=== PATIENT | male | born 1955 | race American Indian/Alaskan Native ===

== ENCOUNTER 2019-08-15 18:45 | Inpatient (IN) | payer MEDICARE ==
[2019-08-15] MEDS ORDERED: FUROSEMIDE 40 MG/4 ML INJ ONE (18:52)
[2019-08-15] MEDS ORDERED: FUROSEMIDE 40 MG/4 ML INJ IV ONE ×2 (18:53→20:15)
--- NOTE | 2019-08-15 18:59 | Emergency Department Report ---
ED Shortness of Breath HPI - General Stated Complaint: MO Time Seen by Provider: 08/15/19 18:50 Source: patient, EMS Mode of arrival: Stretcher Limitations: No Limitations - History of Present Illness Initial Comments: Patient is a 64-year-old that presents to the emergency room with complaints of shortness of breath. Patient states symptoms started 4 days ago. Patient state s fraction of 3 hours of his symptoms got worse. Patient states she cannot get breath. Patient states he is having difficulties in breathing. Patient denies fever and chills. Patient denies cough. Patient denies chest pain. Patient denies headache. Patient states symptoms better with rest and worse with exertion. MD Complaint: shortness of breath -: Sudden, days(s) (4 days) Severity: severe Consistency: constant Improves With: oxygen, upright position, other (bipap) Worsens With: lying flat, exertion Known History Of: congestive heart failure - Related Data Home Medications Medication Instructions Recorded Confirmed Last Taken Amlodipine Besylate [Norvasc] 10 mg PO QDAY 08/15/19 08/15/19 Unknown Aspirin EC [Halfprin EC] 81 mg PO QDAY 08/15/19 08/15/19 Unknown Atorvastatin Calcium [Lipitor] 80 mg PO QHS 08/15/19 08/15/19 Unknown Clopidogrel [Plavix] 75 mg PO QDAY 08/15/19 08/15/19 Unknown Furosemide [Lasix TAB] 80 mg PO QDAY 08/15/19 08/15/19 Unknown Insulin Detemir [Levemir Flextouch] 15 unit SQ QHS 08/15/19 08/15/19 Unknown Isosorbide Dinitrate [Isordil] 40 mg PO TID 08/15/19 08/15/19 Unknown Potassium Chloride [K-Dur] 20 meq PO QDAY 08/15/19 08/15/19 Unknown carvediloL [Coreg] 25 mg PO BID 08/15/19 08/15/19 Unknown cloNIDine-TTS PATCH [Catapres-Tts 1 patch TD Q7D 08/15/19 08/15/19 Unknown 0.1MG Patch] hydrALAZINE [Apresoline TAB] 100 mg PO TID 08/15/19 08/15/19 Unknown Allergies Allergy/AdvReac Type Severity Reaction Status Date / Time No Known Allergies Allergy Verified 08/15/19 18:58 ED Review of Systems ROS: Stated complaint: MO Other details as noted in HPI Constitutional: denies: chills, fever Eyes: denies: eye pain, eye discharge, vision change ENT: denies: ear pain, throat pain Respiratory: shortness of breath, SOB with exertion, SOB at rest. denies: cough, wheezing Cardiovascular: dyspnea on exertion. denies: chest pain, palpitations Endocrine: no symptoms reported Gastrointestinal: denies: abdominal pain, nausea, diarrhea Genitourinary: denies: urgency, dysuria Musculoskeletal: denies: back pain, joint swelling, arthralgia Skin: denies: rash, lesions Neurological: denies: headache, weakness, paresthesias Psychiatric: denies: anxiety, depression Hematological/Lymphatic: denies: easy bleeding, easy bruising ED Past Medical Hx - Past Medical History Previous Medical History?: Yes Hx Hypertension: Yes Hx Congestive Heart Failure: Yes - Surgical History Past Surgical History?: No - Family History Family history: no significant - Social History Smoking Status: Former Smoker Substance Use Type: None - Medications Home Medications: Home Medications Medication Instructions Recorded Confirmed Last Taken Type Amlodipine Besylate [Norvasc] 10 mg PO QDAY 08/15/19 08/15/19 Unknown History Aspirin EC [Halfprin EC] 81 mg PO QDAY 08/15/19 08/15/19 Unknown History Atorvastatin Calcium [Lipitor] 80 mg PO QHS 08/15/19 08/15/19 Unknown History Clopidogrel [Plavix] 75 mg PO QDAY 08/15/19 08/15/19 Unknown History Furosemide [Lasix TAB] 80 mg PO QDAY 08/15/19 08/15/19 Unknown History Insulin Detemir [Levemir Flextouch] 15 unit SQ QHS 08/15/19 08/15/19 Unknown History Isosorbide Dinitrate [Isordil] 40 mg PO TID 08/15/19 08/15/19 Unknown History Potassium Chloride [K-Dur] 20 meq PO QDAY 08/15/19 08/15/19 Unknown History carvediloL [Coreg] 25 mg PO BID 08/15/19 08/15/19 Unknown History cloNIDine-TTS PATCH [Catapres-Tts 1 patch TD Q7D 08/15/19 08/15/19 Unknown History 0.1MG Patch] hydrALAZINE [Apresoline TAB] 100 mg PO TID 08/15/19 08/15/19 Unknown History ED Physical Exam - General Limitations: No Limitations General appearance: alert, in distress - Head Head exam: Present: atraumatic, normocephalic - Eye Eye exam: Present: normal appearance - ENT ENT exam: Present: mucous membranes moist - Neck Neck exam: Present: normal inspection - Respiratory Respiratory exam: Present: respiratory distress, rales, accessory muscle use - Cardiovascular Cardiovascular Exam: Present: regular rate, normal rhythm, tachycardia. Absent: systolic murmur, diastolic murmur, rubs, gallop - GI/Abdominal GI/Abdominal exam: Present: soft, normal bowel sounds - Rectal Rectal exam: Present: deferred - Extremities Exam Extremities exam: Present: normal inspection - Back Exam Back exam: Present: normal inspection - Neurological Exam Neurological exam: Present: alert, oriented X3 - Psychiatric Psychiatric exam: Present: normal affect, normal mood - Skin Skin exam: Present: warm, dry, intact, normal color. Absent: rash ED Course Vital Signs 08/15/19 08/15/19 08/15/19 18:58 19:00 19:01 Pulse Rate 98 H 100 H 98 H Respiratory 16 35 H 38 H Rate Blood Pressure 193/110 196/123 196/123 O2 Sat by Pulse 100 95 96 Oximetry 08/15/19 08/15/19 08/15/19 19:15 19:30 19:45 Pulse Rate 97 H 94 H 96 H Respiratory 31 H 28 H 28 H Rate Blood Pressure 188/107 188/107 207/105 O2 Sat by Pulse 96 98 97 Oximetry 08/15/19 08/15/19 08/15/19 20:00 20:15 20:30 Pulse Rate 92 H 94 H 96 H Respiratory 29 H 30 H 25 H Rate Blood Pressure 198/108 184/104 192/108 O2 Sat by Pulse 98 94 94 Oximetry 08/15/19 08/15/19 08/15/19 20:45 21:00 21:15 Pulse Rate 93 H 89 88 Respiratory 25 H 26 H 22 Rate Blood Pressure 181/103 181/104 179/107 O2 Sat by Pulse 94 97 96 Oximetry 08/15/19 08/15/19 08/15/19 21:30 22:00 22:15 Pulse Rate 88 84 92 H Respiratory 19 20 16 Rate Blood Pressure 178/103 175/102 185/104 O2 Sat by Pulse 96 99 96 Oximetry 08/15/19 08/15/19 08/15/19 22:23 22:30 22:45 Pulse Rate 97 H 85 84 Respiratory 25 H 21 22 Rate Blood Pressure 185/104 183/100 183/106 O2 Sat by Pulse 97 96 97 Oximetry 08/15/19 08/15/19 08/15/19 23:00 23:30 23:45 Pulse Rate 88 84 83 Respiratory 21 21 22 Rate Blood Pressure 179/108 184/103 179/106 O2 Sat by Pulse 98 97 98 Oximetry 08/15/19 08/16/19 08/16/19 23:59 00:00 00:15 Pulse Rate 82 82 83 Respiratory 21 18 21 Rate Blood Pressure 179/106 179/102 181/104 O2 Sat by Pulse 99 98 99 Oximetry 08/16/19 08/16/19 08/16/19 00:31 00:45 01:00 Pulse Rate 111 H 90 84 Respiratory 21 22 20 Rate Blood Pressure 149/107 188/102 182/101 O2 Sat by Pulse 97 99 98 Oximetry 08/16/19 08/16/19 01:15 01:30 Pulse Rate 84 86 Respiratory 19 22 Rate Blood Pressure 189/102 183/94 O2 Sat by Pulse 98 98 Oximetry - Reevaluation(s) Reevaluation #1: Initial evaluation done. Report received from EMS. EMS states that they gave him nitroglycerin, morphine and placed him on BiPAP. Patient was placed on BiPAP here. Patient's this oxygen saturation is 83% 08/15/19 18:45 Reevaluation #2: Patient states he is feeling better. Patient blood pressure 191 temperature patient was placed on a nitro drip. Patient worked breathing has decreased. Patient's oxygen is better. 08/15/19 19:27 Reevaluation #3: Patient symptoms are improving. Patient worked breathing has decreased. Patient's oxygen saturation is 99%. 08/15/19 20:01 Reevaluation #4: I discussed all results with patient. Discussed plan of care with patient. Patient will be admitted to the hospitalist service. Patient agrees with plan of care and admission. 08/15/19 21:52 - Consultations Consultation #1: Hospitalist consulted for admission. Hospitalist admit patient. 08/15/19 21:53 ED Medical Decision Making - Lab Data Result diagrams: 08/15/19 20:39 08/15/19 20:39 - EKG Data -: EKG Interpreted by Me EKG shows normal: sinus rhythm, axis, intervals, ST-T waves Rate: normal, tachycardia - EKG Data Interpretation: LVH, other (LBBB) - Radiology Data Radiology results: report reviewed CHEST 1 VIEW INDICATION / CLINICAL INFORMATION: Dyspnea. COMPARISON: None available. FINDINGS: SUPPORT DEVICES: ICD on the left HEART / MEDIASTINUM: Mild enlargement of the cardiac silhouette with left ventricular configuration. LUNGS / PLEURA: Diffuse interstitial opacity consistent with pulmonary edema No pneumothorax. ADDITIONAL FINDINGS: No significant additional findings. IMPRESSION: 1. Cardiomegaly and interstitial pulmonary edema. - Medical Decision Making pt is a 64-year-old male that presents emergency room with complaints of breath. Patient's symptoms were worsening over last few hours prior to arrival. Patient was on BiPAP by EMS. Patient given multiple medications by EMS. Pa tient still symptomatic on initial examination. Patient was placed on BiPAP for increased work of breathing and hypoxia. Patient's oxygen improved. Patient given Lasix in the ER and placed on a nitro drip. Patient was placed on nitro drip for his CHF and for his blood pressure. Patient's blood pressure improved. Patient's symptoms improved. Patient responded well to treatment. Patient admitted to the ICU and to the hospitalist team. - Differential Diagnosis shortness of breath, CHF, pulmonary edema. Hypoxia. Critical Care Time: Yes Critical care time in (mins) excluding proc time.: 45 Critical care attestation.: If time is entered above; I have spent that time in minutes in the direct care of this critically ill patient, excluding procedure time. Critical Care Time: 45 minutes ED Disposition Clinical Impression: SOB (shortness of breath), Malignant hypertension, PEREZ (dyspnea on exertion), Hypoxia, Elevated troponin, Respiratory distress CHF exacerbation Qualifiers: Heart failure type: unspecified Qualified Code(s): I50.9 - Heart failure, unspecified Renal failure Qualifiers: Renal failure chronicity: acute Acute renal failure type: unspecified Qualified Code(s): N17.9 - Acute kidney failure, unspecified Disposition: OP ADMIT IP TO THIS HOSP Is pt being admited?: Yes Does the pt Need Aspirin: No Condition: Critical Time of Disposition: 21:49
--- NOTE | 2019-08-15 19:52 | XRay Report ---
CHEST 1 VIEW INDICATION / CLINICAL INFORMATION: Dyspnea. COMPARISON: None available. FINDINGS: SUPPORT DEVICES: ICD on the left HEART / MEDIASTINUM: Mild enlargement of the cardiac silhouette with left ventricular configuration. LUNGS / PLEURA: Diffuse interstitial opacity consistent with pulmonary edema No pneumothorax. ADDITIONAL FINDINGS: No significant additional findings. IMPRESSION: 1. Cardiomegaly and interstitial pulmonary edema. Signer Name: Adan Fraser MD Signed: 08/15/2019 7:48 PM Workstation Name: [id number]
[2019-08-15] MEDS: NITROGLYCERIN DRIP 50 MG/250 ML BOTTLE IV SCH (19:59)
[2019-08-15 21:10] LABS: Hematocrit 30.7 % (35.5-45.6); Hemoglobin 10.5 gm/dl (11.8-15.2); Mean Corpuscular HGB Conc 34 % (32-34); Mean Corpuscular Volume 92 fl (84-94); Platelet Count 225 K/mm3 (140-440); Red Blood Count 3.35 M/mm3 (3.65-5.03); Red Cell Distribution Width 13.6 % (13.2-15.2)
[2019-08-15 21:23] LABS: Creatine Kinase MB 11.9 ng/mL (0.0-4.0)
[2019-08-15 21:28] LABS: Albumin 4.1 g/dL (3.9-5)
[2019-08-15 21:52] LABS: Chol/HDL Ratio 3.06 %
[2019-08-15 21:54] LABS: Basophils % (Manual) 0 % (0.0-1.8); Eosinophils % (Manual) 0 % (0.0-4.3); Total Cells Counted 100
[2019-08-15 21:55] LABS: Anisocytosis 1+; Large Platelets 1+; Platelet Estimate Consistent w Auto; Poikilocytosis 1+
[2019-08-15] MEDS ORDERED: DEXTROSE 50% IN WATER (25GM) 50 ML SYRINGE IV PRN (23:23)
[2019-08-15] MEDS ORDERED: ONDANSETRON 4 MG/2 ML INJ IV PRN (23:28)
[2019-08-15] MEDS ORDERED: ACETAMINOPHEN 325 MG TAB PO PRN (23:28)
[2019-08-16] MEDS: cloNIDine TTS 0.1 MG/24 HR PATCH TD SCH ×2 (00:09→21:50)
[2019-08-16] MEDS ORDERED: cloNIDine 0.2 MG TAB ONE (01:55)
[2019-08-16] MEDS ORDERED: HEPARIN 10,000 UNITS/10 ML VIAL IV ONE ×4 (01:58→23:01)
[2019-08-16] MEDS ORDERED: cloNIDine 0.2 MG TAB PO ONE (02:50)
[2019-08-16] MEDS ORDERED: HEPARIN 5,000 UNIT/1 ML VIAL ONE ×2 (02:59→14:10)
[2019-08-16] MEDS: ALBUTEROL 2.5 MG/3 ML NEBU IH SCH ×4 (03:16→20:59)
[2019-08-16 05:19] LABS: Hemoglobin 10.2 gm/dl (11.8-15.2)
[2019-08-16 05:35] LABS: Creatine Kinase MB 20.5 ng/mL (0.0-4.0)
[2019-08-16 05:44] LABS: INR 1.18 (0.87-1.13)
[2019-08-16 05:53] LABS: Partial Thromboplastin Time 35.9 Sec. (24.2-36.6)
[2019-08-16] MEDS ORDERED: HEPARIN/ 0.45% NACL DRIP 25,000 UNIT/500 ML BAG ONE (05:55)
[2019-08-16] MEDS: HEPARIN/ 0.45% NACL DRIP 25,000 UNIT/500 ML BAG IV SCH ×3 (05:59→23:18)
[2019-08-16] MEDS ORDERED: HEPARIN 5,000 UNIT/1 ML VIAL SUB-Q SCH (06:00)
--- NOTE | 2019-08-16 06:33 | History and Physical Report ---
CHIEF COMPLAINT: Shortness of breath. HISTORY OF PRESENTING ILLNESS: The patient is a 64-year-old male who presented with history of shortness of breath going on for about 4 days and said that the symptoms got worse few hours prior to presentation. There is no history of fever or chills and no history of cough. Also, the patient denied history of chest pain, headache or dizziness and said that the symptoms of shortness of breath get worse with exertion and get better with rest. There is also no history of nausea and vomiting. PAST MEDICAL HISTORY: Pertinent for hypertension, congestive heart failure. PAST SURGICAL HISTORY: There is no significant past surgical history. FAMILY HISTORY: Reviewed and noncontributory. SOCIAL HISTORY: The patient is a former cigarette smoker who does not smoke currently, does not drink alcohol and does not use illicit drugs. MEDICATIONS: The patient is on amlodipine, Norvasc 10 mg by mouth daily, aspirin 81 mg by mouth daily, Lipitor 80 mg by mouth at bedtime, clopidogrel 75 mg by mouth daily, Lasix 80 mg by mouth daily, Levemir insulin 15 units subcutaneously at bedtime, isosorbide dinitrate 40 mg by mouth 3 times daily, K-Dur, potassium chloride 20 mEq by mouth daily, Coreg 25 mg by mouth twice daily, Catapres 0.1 mg patch 1 patch transdermally every 72 hours and hydralazine 100 mg by mouth 3 times daily. ALLERGIES: There are no known drug allergies. REVIEW OF SYSTEMS: CONSTITUTIONAL: There is no fever, no chills, no diaphoresis. HEENT: There is no headache or sore throat. CARDIOVASCULAR SYSTEM: There is no chest pain or orthopnea. RESPIRATORY SYSTEM: Shortness of breath is present. There is no cough. GASTROINTESTINAL SYSTEM: There is no nausea, no vomiting, no abdominal pain, diarrhea or constipation. NEUROLOGICAL SYSTEM: There is no numbness, no dizziness, no altered mental status. MUSCULOSKELETAL SYSTEM: There is no joint pain or swelling. DERMATOLOGICAL SYSTEM: There is no skin rash or itching. GENITOURINARY SYSTEM: There is no dysuria, hematuria, or flank pain. Rest of system review is normal. PHYSICAL EXAMINATION: GENERAL: At the time of exam, the patient was found to be alert, oriented x3 and in mild to moderate distress due to shortness of breath. VITAL SIGNS: At the initial time of presentation show normal temperature with pulse of 98, respirations 16, blood pressure 193/110, O2 sat of 100% on oxygen. HEENT: Showed pupils to be equal, round, reactive to light and accommodating. Extraocular muscles are intact. NECK: Supple with no JVD or carotid bruit. CARDIOVASCULAR SYSTEM: Showed normal first and second heart sounds with no gallops or murmurs. RESPIRATORY SYSTEM: Showed good air entry on both sides of the lungs with mild basilar rales. GASTROINTESTINAL SYSTEM: Showed abdomen to be full, soft, nontender with no organomegaly or rigidity. NEUROLOGIC: Showed no focal deficit. MUSCULOSKELETAL: Showed swelling in both ankles. DERMATOLOGICAL SKIN: Showed no skin rash. GENITOURINARY SYSTEM: Showed no costovertebral angle tenderness. PERTINENT LABORATORY AND IMAGING STUDIES: The patient had chest x-ray done and chest x-ray shows cardiomegaly and interstitial pulmonary edema. Lab results, the patient has CBC done with normal white count, low hemoglobin of 10.5, low hematocrit of 30.7 with CBC differential showing elevated segmented neutrophil count of 93%. The patient's chemistry showing high BUN of 40 with high creatinine of 3.7 with high blood glucose level of 257. The patient's cardiac enzymes show high total CPK of 3076 with high CK-MB of 11.9 and normal CK percentage index with high troponin level of 0.129. The patient's brain natriuretic peptide level is high with a value of 11,748. DIAGNOSES: 1. Congestive heart failure exacerbation. 2. Elevated troponin level. 3. Hypertensive crisis. PLAN OF CARE: 1. The patient will be admitted to ICU. 2. The patient will continue the nitroglycerin drip started in the Emergency Room, which will be titrated to keep blood pressure down to about 140/90 or less. 3. The patient will have Cardiology consult with Dr. Banegas because of CHF exacerbation and elevated troponin level. 4. The patient will have cardiac enzymes, troponin, total CK, and CK-MB checked every 6 hours x 2 more levels. 5. The patient will have 2D echo done in the morning to check the left ventricular function. 6. The patient will be on Accu-Chek before meals and at bedtime followed by low-dose sliding scale using regular insulin coverage. 7. The patient will be on heparin bolus and drip per NSTEMI protocol. 8. The patient will be on p.r.n. medications like Tylenol 650 mg by mouth every 4 hours as needed for fever and headache and will be on albuterol nebulizer 2.5 mg by inhalation every 6 hours. 9. The patient will be on his home medications as shown in the medication reconciliation section. 10. The patient will be on IV Lasix 40 mg daily. 11. The patient will be on IV Zofran 4 mg IV every 8 hours as needed for nausea and vomiting. 12. The patient will continue the BiPAP started in the Emergency Room until oxygenation improves and the order reviewed and changed by the attending physician. JOB# [id number] OCN/NTS
[2019-08-16] MEDS: INSULIN REGULAR, HUMAN 100 UNITS/1 ML SUB-Q SCH ×4 (07:23→21:49)
[2019-08-16] MEDS ORDERED: hydrALAZINE 100 MG TAB ONE ×2 (07:33→15:14)
[2019-08-16] MEDS: hydrALAZINE 100 MG TAB PO SCH ×3 (07:34→19:54)
[2019-08-16] MEDS ORDERED: NITROGLYCERIN DRIP 50 MG/250 ML BOTTLE ONE ×2 (08:05→14:42)
--- NOTE | 2019-08-16 09:58 | Progress Note ---
Assessment and Plan Assessment and plan: Patient is a 64 yo man with a history of hypertension and CHF (first visit in our EMR) who presented to [facility] ED with severe SOB requring Bipap, pulse ox only 83%. * pCXR Impression: Cardiomegaly and interstitial pulmonary edema -Acute on chronic decompensated heart failure, suspected systolic decompenstation: treat with iv lasix, consult Cardiology, ECHO pending -Acute hypoxic respiratory failure: wean off bipap, consult CCM/Pulm -ARF, vasomotor nephropathy: treat the CHF, consult Nephrology -Type 2 CO vs NSTEMI; on heparin drip -Malignant Hypertension: on NTG drip -Uncontrolled type 2 DM: add ssi, monitior bg closely -SIRs, noninfectious with organ dysfunction, poa: continue to the CHF and ARF -Anemia: check FOBT, monitor closely on heparin IV drip CCT 31 minutes History Interval history: Patient was seen and examined. Follow-up on current diagnosis of CHF. No overnight events reported to me. Patient denies any nausea/vomiting or severe headaches. Imaging, nursing note, chart, labs and old chart reviewed. Discussed with patient. Hospitalist Physical - Physical exam Narrative exam: Gen: ill appearing, increase accessory muscles, Awake, Alert, Orientated HEENT: NCAT, EOMI, PERRL, OP Clear Neck: supple, no adenopathy, no thyromegaly, JVD CVS/Heart: RRR, normal S1S2, pulses present bilaterally Chest/Lungs: bilateral crackles and diminished bs, Symmetrical chest expansion, good air entry bilaterally GI/Abdomen: soft, NTND, good bowel sounds, no guarding or rebound /Bladder: no suprapubic tenderness, no CVA or paraspinal tenderness Extermity/Skin: +pitting ble edema, no obvious rash MSK: FROM x 4 Neuro: CN 2-12 grossly intact, no new focal deficits Psych: calm - Constitutional Vitals: Temp Pulse Resp BP Pulse Ox 93 H 16 181/103 98 08/16/19 08:57 08/16/19 08:57 08/16/19 08:57 08/16/19 08:57 Results - Labs CBC & Chem 7: 08/16/19 04:49 08/15/19 20:39 Labs: Laboratory Last Values WBC 8.1 K/mm3 (4.5-11.0) 08/15/19 20:39 RBC 3.35 M/mm3 (3.65-5.03) L 08/15/19 20:39 Hgb 10.2 gm/dl (11.8-15.2) L 08/16/19 04:49 Hct 30.0 % (35.5-45.6) L 08/16/19 04:49 MCV 92 fl (84-94) 08/15/19 20:39 MCH 31 pg (28-32) 08/15/19 20:39 MCHC 34 % (32-34) 08/15/19 20:39 RDW 13.6 % (13.2-15.2) 08/15/19 20:39 Plt Count 233 K/mm3 (140-440) 08/16/19 04:49 Add Manual Diff Complete 08/15/19 20:39 Total Counted 100 08/15/19 20:39 Seg Neutrophils % [employer] 08/15/19 20:39 Seg Neuts % (Manual) 93.0 % (40.0-70.0) H 08/15/19 20:39 Band Neutrophils % 0 % 08/15/19 20:39 Lymphocytes % (Manual) 4.0 % (13.4-35.0) L 08/15/19 20:39 Reactive Lymphs % (Man) 0 % 08/15/19 20:39 Monocytes % (Manual) 3.0 % (0.0-7.3) 08/15/19 20:39 Eosinophils % (Manual) 0 % (0.0-4.3) 08/15/19 20:39 Basophils % (Manual) 0 % (0.0-1.8) 08/15/19 20:39 Metamyelocytes % 0 % 08/15/19 20:39 Myelocytes % 0 % 08/15/19 20:39 Promyelocytes % 0 % 08/15/19 20:39 Blast Cells % 0 % 08/15/19 20:39 Nucleated RBC % Not Reportable 08/15/19 20:39 Seg Neutrophils # Man 7.5 K/mm3 (1.8-7.7) 08/15/19 20:39 Band Neutrophils # 0.0 K/mm3 08/15/19 20:39 Lymphocytes # (Manual) 0.3 K/mm3 (1.2-5.4) L 08/15/19 20:39 Abs React Lymphs (Man) 0.0 K/mm3 08/15/19 20:39 Monocytes # (Manual) 0.2 K/mm3 (0.0-0.8) 08/15/19 20:39 Eosinophils # (Manual) 0.0 K/mm3 (0.0-0.4) 08/15/19 20:39 Basophils # (Manual) 0.0 K/mm3 (0.0-0.1) 08/15/19 20:39 Metamyelocytes # 0.0 K/mm3 08/15/19 20:39 Myelocytes # 0.0 K/mm3 08/15/19 20:39 Promyelocytes # 0.0 K/mm3 08/15/19 20:39 Blast Cells # 0.0 K/mm3 08/15/19 20:39 WBC Morphology Not Reportable 08/15/19 20:39 Hypersegmented Neuts Not Reportable 08/15/19 20:39 Hyposegmented Neuts Not Reportable 08/15/19 20:39 Hypogranular Neuts Not Reportable 08/15/19 20:39 Smudge Cells Not Reportable 08/15/19 20:39 Toxic Granulation Not Reportable 08/15/19 20:39 Toxic Vacuolation Not Reportable 08/15/19 20:39 Dohle Bodies Not Reportable 08/15/19 20:39 Pelger-Huet Anomaly Not Reportable 08/15/19 20:39 Alysia Rods Not Reportable 08/15/19 20:39 Platelet Estimate Consistent w auto 08/15/19 20:39 Clumped Platelets Not Reportable 08/15/19 20:39 Plt Clumps, EDTA Not Reportable 08/15/19 20:39 Large Platelets 1+ 08/15/19 20:39 Giant Platelets Not Reportable 08/15/19 20:39 Platelet Satelliting Not Reportable 08/15/19 20:39 Plt Morphology Comment Not Reportable 08/15/19 20:39 RBC Morphology Not Reportable 08/15/19 20:39 Dimorphic RBCs Not Reportable 08/15/19 20:39 Polychromasia Not Reportable 08/15/19 20:39 Hypochromasia Not Reportable 08/15/19 20:39 Poikilocytosis 1+ 08/15/19 20:39 Anisocytosis 1+ 08/15/19 20:39 Microcytosis Not Reportable 08/15/19 20:39 Macrocytosis Not Reportable 08/15/19 20:39 Spherocytes Not Reportable 08/15/19 20:39 Pappenheimer Bodies Not Reportable 08/15/19 20:39 Sickle Cells Not Reportable 08/15/19 20:39 Target Cells Not Reportable 08/15/19 20:39 Tear Drop Cells Not Reportable 08/15/19 20:39 Ovalocytes Not Reportable 08/15/19 20:39 Helmet Cells Not Reportable 08/15/19 20:39 Miranda-Fitzgerald Bodies Not Reportable 08/15/19 20:39 [place] Rings Not Reportable 08/15/19 20:39 Oxford Cells Not Reportable 08/15/19 20:39 Bite Cells Not Reportable 08/15/19 20:39 Crenated Cell Not Reportable 08/15/19 20:39 Elliptocytes Not Reportable 08/15/19 20:39 Acanthocytes (Spur) Not Reportable 08/15/19 20:39 Rouleaux Not Reportable 08/15/19 20:39 Hemoglobin C Crystals Not Reportable 08/15/19 20:39 Schistocytes Not Reportable 08/15/19 20:39 Malaria parasites Not Reportable 08/15/19 20:39 Fred Bodies Not Reportable 08/15/19 20:39 Hem Pathologist Commnt No 08/15/19 20:39 PT 15.2 Sec. (12.2-14.9) H 08/16/19 04:49 INR 1.18 (0.87-1.13) H 08/16/19 04:49 APTT 35.9 Sec. (24.2-36.6) 08/16/19 04:49 Sodium 141 mmol/L (137-145) 08/15/19 20:39 Potassium 3.9 mmol/L (3.6-5.0) 08/15/19 20:39 Chloride 104.7 mmol/L (98-107) 08/15/19 20:39 Carbon Dioxide 20 mmol/L (22-30) L 08/15/19 20:39 Anion Gap 20 mmol/L 08/15/19 20:39 BUN 40 mg/dL (9-20) H 08/15/19 20:39 Creatinine 3.7 mg/dL (0.8-1.5) H 08/15/19 20:39 Estimated GFR 20 ml/min 08/15/19 20:39 BUN/Creatinine Ratio 11 % 08/15/19 20:39 Glucose 257 mg/dL (75-100) H 08/15/19 20:39 POC Glucose 73 (70-105) 08/16/19 07:30 Lactic Acid 1.10 mmol/L (0.7-2.0) 08/15/19 20:39 Calcium 9.0 mg/dL (8.4-10.2) 08/15/19 20:39 Total Bilirubin 0.40 mg/dL (0.1-1.2) 08/15/19 20:39 AST 33 units/L (5-40) 08/15/19 20:39 ALT 18 units/L (7-56) 08/15/19 20:39 Alkaline Phosphatase 91 units/L (35-129) 08/15/19 20:39 Total Creatine Kinase 2928 units/L (55-170) H 08/16/19 04:49 CK-MB (CK-2) 20.5 ng/mL (0.0-4.0) H 08/16/19 04:49 CK-MB (CK-2) Rel Index 0.7 (0-4) 08/16/19 04:49 Troponin T 0.382 ng/mL (0.00-0.029) H* D 08/16/19 04:49 NT-Pro-B Natriuret Pep 53411 pg/mL (0-900) H 08/15/19 20:39 Total Protein 7.2 g/dL (6.3-8.2) 08/15/19 20:39 Albumin 4.1 g/dL (3.9-5) 08/15/19 20:39 Albumin/Globulin Ratio 1.3 % 08/15/19 20:39 Triglycerides 94 mg/dL (2-149) 08/15/19 20:39 Cholesterol 138 mg/dL (50-199) 08/15/19 20:39 LDL Cholesterol Direct 86 mg/dL (50-130) 08/15/19 20:39 HDL Cholesterol 45 mg/dL (40-59) 08/15/19 20:39 Cholesterol/HDL Ratio 3.06 % 08/15/19 20:39 Active Medications - Current Medications Current Medications: Generic Name Dose Route Start Last Admin Trade Name Freq PRN Reason Stop Dose Admin Acetaminophen 650 mg 08/15/19 23:28 Tylenol PO Q4H PRN Headache Albuterol 2.5 mg 08/16/19 02:00 08/16/19 08:24 Proventil IH 2.5 mg Q6HRT [facility] Administration Amlodipine Besylate 10 mg 08/16/19 10:00 Amlodipine PO QDAY [facility] Aspirin 81 mg 08/16/19 10:00 Halfprin Ec PO QDAY [facility] Atorvastatin Calcium 80 mg 08/16/19 22:00 Lipitor PO QHS [facility] Carvedilol 25 mg 08/16/19 10:00 Coreg PO BID [facility] Clonidine HCl 0.1 mg 08/15/19 23:45 08/16/19 00:09 Catapres-Tts Patch TD Not Given Fr@2200 [facility] Dextrose 50 ml 08/15/19 23:23 D50w (25gm) Syringe IV Q30MIN PRN Hypoglycemia Protocol Furosemide 40 mg 08/16/19 10:00 Lasix IV QDAY [facility] Guaifenesin 200 mg 08/15/19 23:29 Robitussin PO Q4H PRN Cough Hydralazine HCl 100 mg 08/16/19 08:00 08/16/19 07:34 Apresoline PO 100 mg TID [facility] Administration Nitroglycerin/Dextrose 50 mg in 250 mls @ 3 mls/hr 08/15/19 19:00 08/16/19 08:56 Tridil Drip 50mg/250ml IV 140 mcg/min TITR [facility] 42 mls/hr Titration Protocol 10 MCG/MIN Heparin Sodium/Sodium Chloride 25,000 unit in 500 mls @ 20 mls/hr 08/16/19 02:00 08/16/19 05:59 Heparin/ 0.45% Nacl-25,000 Unit/500 Ml IV 1,000 units/hr TITRATE [facility] 20 mls/hr Administration Protocol 1,000 UNITS/HR Insulin Glargine 15 units 08/16/19 22:00 Lantus SUB-Q QHS [facility] Insulin Human Regular 0 units 08/16/19 07:30 08/16/19 07:23 Humulin R SUB-Q Not Given [facility] Protocol Insulin Human Regular 0 units 08/16/19 22:00 Humulin R SUB-Q QHS [facility] Protocol Ondansetron HCl 4 mg 08/15/19 23:28 Zofran IV Q8H PRN Nausea And Vomiting Potassium Chloride 20 meq 08/16/19 10:00 K-Dur PO QDAY [facility]
[2019-08-16] MEDS ORDERED: CLOPIDOGREL 75 MG TAB PO SCH (10:00)
[2019-08-16] MEDS: NITROGLYCERIN DRIP 50 MG/250 ML BOTTLE IV SCH ×2 (10:00→17:49)
[2019-08-16] MEDS ORDERED: FUROSEMIDE 40 MG/4 ML INJ ONE (10:10)
[2019-08-16] MEDS ORDERED: ASPIRIN 81 MG TAB CHEW ONE (10:10)
[2019-08-16] MEDS ORDERED: amLODIPine 10 MG TAB ONE (10:10)
[2019-08-16] MEDS ORDERED: POTASSIUM CHLORIDE ER 20 MEQ TAB PO ONE (10:11)
[2019-08-16] MEDS ORDERED: carvediloL 25 MG TAB ONE (10:11)
[2019-08-16] MEDS: amLODIPine 10 MG TAB PO SCH (10:14)
[2019-08-16] MEDS: FUROSEMIDE 40 MG/4 ML INJ IV SCH (10:15)
[2019-08-16] MEDS: carvediloL 25 MG TAB PO SCH ×2 (10:15→21:51)
[2019-08-16] MEDS: ASPIRIN EC 81 MG TAB PO SCH (10:15)
[2019-08-16] MEDS: POTASSIUM CHLORIDE ER 10 MEQ TAB PO SCH (10:15)
--- NOTE | 2019-08-16 10:36 | Consultation ---
History of Present Illness Consult date: 08/16/19 Requesting physician: LAURA ASHER Consult reason: congestive heart failure, elevated troponin History of present illness: Mr. Posada is a 64 y/o male with a medical history significant for chronic HFrEF, cardiomyopathy, AICD in situ, CAD s/p PCI to the LAD in 2016, hypertension, type 2 diabetes and CKD who presented to [facility] with worsening SOB over the past several days. He follows at [facility], and his medical history/home medications are obtained from [facility]'s EMR. On ad mission, his oxygen saturation was in the 80s, and he ultimately required BiPAP. A CXR was significant for cardiomegaly and interstitial pulmonary edema. Troponins elevated to 0.129, 0.231 and 0.382; EKG NAF and patient denies chest pain. An echocardiogram done at [place] in 2016 found an EF of 30 percent, mild LVH, severely dilated LV, mild MR and a small pericardial effusion. Past History Past Medical History: CAD, diabetes, heart failure, hypertension, renal failure, other (AICD in situ) Medications and Allergies Allergies Allergy/AdvReac Type Severity Reaction Status Date / Time No Known Allergies Allergy Verified 08/15/19 18:58 Home Medications Medication Instructions Recorded Confirmed Last Taken Type Amlodipine Besylate [Norvasc] 10 mg PO QDAY 08/15/19 08/15/19 Unknown History Aspirin EC [Halfprin EC] 81 mg PO QDAY 08/15/19 08/15/19 Unknown History Atorvastatin Calcium [Lipitor] 80 mg PO QHS 08/15/19 08/15/19 Unknown History Clopidogrel [Plavix] 75 mg PO QDAY 08/15/19 08/15/19 Unknown History Furosemide [Lasix TAB] 80 mg PO QDAY 08/15/19 08/15/19 Unknown History Insulin Detemir [Levemir Flextouch] 15 unit SQ QHS 08/15/19 08/15/19 Unknown History Isosorbide Dinitrate [Isordil] 40 mg PO TID 08/15/19 08/15/19 Unknown History Potassium Chloride [K-Dur] 20 meq PO QDAY 08/15/19 08/15/19 Unknown History carvediloL [Coreg] 25 mg PO BID 08/15/19 08/15/19 Unknown History cloNIDine-TTS PATCH [Catapres-Tts 1 patch TD Q7D 08/15/19 08/15/19 Unknown History 0.1MG Patch] hydrALAZINE [Apresoline TAB] 100 mg PO TID 08/15/19 08/15/19 Unknown History Active Meds: Active Medications Acetaminophen (Tylenol) 650 mg PO Q4H PRN PRN Reason: Headache Albuterol (Proventil) 2.5 mg IH Q6HRT [facility] Last Admin: 08/16/19 08:24 Dose: 2.5 mg Documented by: Amlodipine Besylate (Amlodipine) 10 mg PO QDAY [facility] Last Admin: 08/16/19 10:14 Dose: 10 mg Documented by: Aspirin (Halfprin Ec) 81 mg PO QDAY [facility] Last Admin: 08/16/19 10:15 Dose: 81 mg Documented by: Atorvastatin Calcium (Lipitor) 80 mg PO QHS [facility] Carvedilol (Coreg) 25 mg PO BID [facility] Last Admin: 08/16/19 10:15 Dose: 25 mg Documented by: Clonidine HCl (Catapres-Tts Patch) 0.1 mg TD Fr@2200 [facility] Last Admin: 08/16/19 00:09 Dose: Not Given Documented by: Dextrose (D50w (25gm) Syringe) 50 ml IV Q30MIN PRN; Protocol PRN Reason: Hypoglycemia Furosemide (Lasix) 40 mg IV QDAY [facility] Last Admin: 08/16/19 10:15 Dose: 40 mg Documented by: Guaifenesin (Robitussin) 200 mg PO Q4H PRN PRN Reason: Cough Hydralazine HCl (Apresoline) 100 mg PO TID [facility] Last Admin: 08/16/19 07:34 Dose: 100 mg Documented by: Nitroglycerin/Dextrose (Tridil Drip 50mg/250ml) 50 mg in 250 mls @ 3 mls/hr IV TITR [facility]; Protocol Last Admin: 08/16/19 10:00 Dose: 150 mcg/min, 45 mls/hr Documented by: Heparin Sodium/Sodium Chloride (Heparin/ 0.45% Nacl-25,000 Unit/500 Ml) 25,000 unit in 500 mls @ 20 mls/hr IV TITRATE [facility]; Protocol Last Admin: 08/16/19 05:59 Dose: 1,000 units/hr, 20 mls/hr Documented by: Insulin Glargine (Lantus) 15 units SUB-Q QHS [facility] Insulin Human Regular (Humulin R) 0 units SUB-Q [facility]; Protocol Last Admin: 08/16/19 07:23 Dose: Not Given Documented by: Insulin Human Regular (Humulin R) 0 units SUB-Q QHS [facility]; Protocol Ondansetron HCl (Zofran) 4 mg IV Q8H PRN PRN Reason: Nausea And Vomiting Potassium Chloride (K-Dur) 20 meq PO QDAY [facility] Last Admin: 08/16/19 10:15 Dose: 20 meq Documented by: Review of Systems All systems: negative Cardiovascular: shortness of breath Physical Examination Vital Signs Pulse Resp BP Pulse Ox 98 H 16 193/110 100 08/15/19 18:58 08/15/19 18:58 08/15/19 18:58 08/15/19 18:58 General appearance: mild distress HEENT: Positive: PERRL Neck: Positive: neck supple Cardiac: Positive: Reg Rate and Rhythm Lungs: Positive: Decreased Breath Sounds Neuro: Positive: Grossly Intact Abdomen: Positive: Unremarkable Male genitourinary: Positive: deferred Skin: Positive: Clear Musculoskeletal: Normal Range of Motion Extremities: Present: normal Results 08/16/19 04:49 08/15/19 20:39 Cardiac Enzymes 08/15/19 08/15/19 08/16/19 Range/Units 20:39 20:39 00:30 AST 33 (5-40) units/L CK-MB (CK-2) 11.9 H 18.0 H (0.0-4.0) ng/mL 08/16/19 Range/Units 04:49 AST (5-40) units/L CK-MB (CK-2) 20.5 H (0.0-4.0) ng/mL Coagulation 08/16/19 Range/Units 04:49 PT 15.2 H (12.2-14.9) Sec. INR 1.18 H (0.87-1.13) APTT 35.9 (24.2-36.6) Sec. Lipids 08/15/19 Range/Units 20:39 Triglycerides 94 (2-149) mg/dL Cholesterol 138 (50-199) mg/dL HDL Cholesterol 45 (40-59) mg/dL Cholesterol/HDL Ratio 3.06 % CBC 08/15/19 08/16/19 Range/Units 20:39 04:49 WBC 8.1 (4.5-11.0) K/mm3 RBC 3.35 L (3.65-5.03) M/mm3 Hgb 10.5 L 10.2 L (11.8-15.2) gm/dl Hct 30.7 L 30.0 L (35.5-45.6) % Plt Count 225 233 (140-440) K/mm3 Comprehensive Metabolic Panel 08/15/19 Range/Units 20:39 Sodium 141 (137-145) mmol/L Potassium 3.9 (3.6-5.0) mmol/L Chloride 104.7 (98-107) mmol/L Carbon Dioxide 20 L (22-30) mmol/L BUN 40 H (9-20) mg/dL Creatinine 3.7 H (0.8-1.5) mg/dL Glucose 257 H (75-100) mg/dL Calcium 9.0 (8.4-10.2) mg/dL AST 33 (5-40) units/L ALT 18 (7-56) units/L Alkaline Phosphatase 91 (35-129) units/L Total Protein 7.2 (6.3-8.2) g/dL Albumin 4.1 (3.9-5) g/dL - Imaging and Cardiology Echo: report reviewed (2017: EF 30%, mild LVH, severely dilated LV, mild MR and a small pericardial effusion) Assessment and Plan Mr. Posada is a 64 y/o male who presented to [facility] with acute on chronic HFrEF. Troponin elevation likely NSTEMI type 2, secondary to demand ischemia/CKD. Will obtain echocardiogram. Continue IV diuresis and heparin drip for now. Continue home antihypertensives and GDMT for HFrEF/cardiomyopathy when able to resume PO intake. No ACEi/ARB d/t renal insufficiency. Further recommendations pending hospital course. - Patient Problems (1) NSTEMI (non-ST elevated myocardial infarction) Current Visit: Yes Status: Acute (2) Acute on chronic HFrEF (heart failure with reduced ejection fraction) Current Visit: Yes Status: Acute (3) Respiratory distress Current Visit: Yes Status: Acute (4) AICD (automatic cardioverter/defibrillator) present Current Visit: Yes Status: Chronic (5) CAD (coronary artery disease) Current Visit: Yes Status: Chronic (6) Stented coronary artery Current Visit: Yes Status: Chronic (7) CKD (chronic kidney disease) Current Visit: Yes Status: Chronic (8) Hypertension Current Visit: Yes Status: Chronic (9) Diabetes mellitus Current Visit: Yes Status: Chronic
[2019-08-16] MEDS ORDERED: HEPARIN 10,000 UNITS/10 ML VIAL ONE (14:15)
[2019-08-16] MEDS ORDERED: INSULIN REGULAR, HUMAN 100 UNITS/1 ML ONE ×2 (15:27→17:56)
[2019-08-16] MEDS: niCARdipine 50 MG in SODIUM CHLORIDE 0.9% 250ML 230 ML IV SCH (19:49)
[2019-08-16] MEDS: guaiFENesin 100 MG/5 ML ORAL LIQD PO PRN (19:54)
[2019-08-16] MEDS ORDERED: INSULIN DETEMIR 15 UNIT SQ SCH (22:00)
[2019-08-16] MEDS ORDERED: NON-FORMULARY EACH (Atorvastatin Calcium [Lipitor] 80 MG) PO SCH (22:00)
[2019-08-16] MEDS: INSULIN GLARGINE 100 UNITS/ML SUB-Q SCH (23:00)
[2019-08-17] MEDS: ALBUTEROL 2.5 MG/3 ML NEBU IH SCH ×4 (01:00→21:00)
[2019-08-17] MEDS: niCARdipine 50 MG in SODIUM CHLORIDE 0.9% 250ML 230 ML IV SCH ×2 (03:24→09:32)
[2019-08-17 06:21] LABS: Hematocrit 28.2 % (35.5-45.6); Hemoglobin 9.5 gm/dl (11.8-15.2); Mean Corpuscular HGB Conc 34 % (32-34); Mean Corpuscular Volume 91 fl (84-94); Platelet Count 205 K/mm3 (140-440); Red Blood Count 3.09 M/mm3 (3.65-5.03)
[2019-08-17 06:43] LABS: Calcium 9.1 mg/dL (8.4-10.2)
[2019-08-17] MEDS: guaiFENesin 100 MG/5 ML ORAL LIQD PO PRN (07:39)
[2019-08-17] MEDS: hydrALAZINE 100 MG TAB PO SCH ×3 (07:39→20:30)
--- NOTE | 2019-08-17 07:49 | Progress Note ---
Assessment and Plan Assessment and plan: Patient is a 64 yo man with a history of hypertension and CHF (first visit in our EMR) who presented to [facility] ED with severe SOB requring Bipap, pulse ox only 83%. * pCXR Impression: Cardiomegaly and interstitial pulmonary edema -Acute on chronic decompensated heart failure, suspected systolic decompensation: treat with iv lasix, consult Cardiology, ECHO pending -Acute hypoxic respiratory failure: wean off bipap, on O2, consulted CCM/Pulm -ARF, vasomotor nephropathy: treat the CHF, consulted Nephrology -NSTEMI; on heparin drip and NTG drip -Malignant Hypertension: on NTG drip, wasn't switched to Cardene due to NSTEMI/CHF treatment, defer to Cardiology and CCM. -Uncontrolled type 2 DM: add ssi, monitior bg closely -SIRs, noninfectious with organ dysfunction, poa: continue to the CHF and ARF -Anemia: check FOBT pending, monitor closely on heparin IV drip switch iv ntg to iv cardene drip, try to wean down doing better, less leg edema and lungs sound much better, off bipap on nasal canula O2 CCT 32min History Interval history: Patient was seen and examined. Follow-up on current diagnosis of CHF. No overnight events reported to me. Patient denies any nausea/vomiting or severe headaches. Imaging, nursing note, chart, labs and old chart reviewed. Discussed with patient. Hospitalist Physical - Physical exam Narrative exam: Gen: ill appearing, less use of accessory muscles, Awake, Alert, Orientated x 3 HEENT: NCAT, EOMI, PERRL, OP Clear Neck: supple, no adenopathy, no thyromegaly, JVD CVS/Heart: RRR, normal S1S2, pulses present bilaterally Chest/Lungs: bilateral crackles and diminished bs, Symmetrical chest expansion, good air entry bilaterally GI/Abdomen: soft, NTND, good bowel sounds, no guarding or rebound /Bladder: no suprapubic tenderness, no CVA or paraspinal tenderness Extermity/Skin: +pitting ble edema, no obvious rash MSK: FROM x 4 Neuro: CN 2-12 grossly intact, no new focal deficits Psych: calm - Constitutional Vitals: Temp Pulse Resp BP Pulse Ox 98.8 F 95 H 21 161/82 95 08/17/19 03:33 08/17/19 06:40 08/17/19 06:40 08/17/19 06:40 08/17/19 06:40 General appearance: Absent: mild distress Results - Labs CBC & Chem 7: 08/17/19 05:45 08/17/19 05:45 Labs: Laboratory Last Values WBC 7.4 K/mm3 (4.5-11.0) 08/17/19 05:45 RBC 3.09 M/mm3 (3.65-5.03) L 08/17/19 05:45 Hgb 9.5 gm/dl (11.8-15.2) L 08/17/19 05:45 Hct 28.2 % (35.5-45.6) L 08/17/19 05:45 MCV 91 fl (84-94) 08/17/19 05:45 MCH 31 pg (28-32) 08/17/19 05:45 MCHC 34 % (32-34) 08/17/19 05:45 RDW 14.0 % (13.2-15.2) 08/17/19 05:45 Plt Count 205 K/mm3 (140-440) 08/17/19 05:45 Add Manual Diff Complete 08/15/19 20:39 Total Counted 100 08/15/19 20:39 Seg Neutrophils % Stitcher Set Up Operator Automatic 08/15/19 20:39 Seg Neuts % (Manual) 93.0 % (40.0-70.0) H 08/15/19 20:39 Band Neutrophils % 0 % 08/15/19 20:39 Lymphocytes % (Manual) 4.0 % (13.4-35.0) L 08/15/19 20:39 Reactive Lymphs % (Man) 0 % 08/15/19 20:39 Monocytes % (Manual) 3.0 % (0.0-7.3) 08/15/19 20:39 Eosinophils % (Manual) 0 % (0.0-4.3) 08/15/19 20:39 Basophils % (Manual) 0 % (0.0-1.8) 08/15/19 20:39 Metamyelocytes % 0 % 08/15/19 20:39 Myelocytes % 0 % 08/15/19 20:39 Promyelocytes % 0 % 08/15/19 20:39 Blast Cells % 0 % 08/15/19 20:39 Nucleated RBC % Not Reportable 08/15/19 20:39 Seg Neutrophils # Man 7.5 K/mm3 (1.8-7.7) 08/15/19 20:39 Band Neutrophils # 0.0 K/mm3 08/15/19 20:39 Lymphocytes # (Manual) 0.3 K/mm3 (1.2-5.4) L 08/15/19 20:39 Abs React Lymphs (Man) 0.0 K/mm3 08/15/19 20:39 Monocytes # (Manual) 0.2 K/mm3 (0.0-0.8) 08/15/19 20:39 Eosinophils # (Manual) 0.0 K/mm3 (0.0-0.4) 08/15/19 20:39 Basophils # (Manual) 0.0 K/mm3 (0.0-0.1) 08/15/19 20:39 Metamyelocytes # 0.0 K/mm3 08/15/19 20:39 Myelocytes # 0.0 K/mm3 08/15/19 20:39 Promyelocytes # 0.0 K/mm3 08/15/19 20:39 Blast Cells # 0.0 K/mm3 08/15/19 20:39 WBC Morphology Not Reportable 08/15/19 20:39 Hypersegmented Neuts Not Reportable 08/15/19 20:39 Hyposegmented Neuts Not Reportable 08/15/19 20:39 Hypogranular Neuts Not Reportable 08/15/19 20:39 Smudge Cells Not Reportable 08/15/19 20:39 Toxic Granulation Not Reportable 08/15/19 20:39 Toxic Vacuolation Not Reportable 08/15/19 20:39 Dohle Bodies Not Reportable 08/15/19 20:39 Pelger-Huet Anomaly Not Reportable 08/15/19 20:39 Alysia Rods Not Reportable 08/15/19 20:39 Platelet Estimate Consistent w auto 08/15/19 20:39 Clumped Platelets Not Reportable 08/15/19 20:39 Plt Clumps, EDTA Not Reportable 08/15/19 20:39 Large Platelets 1+ 08/15/19 20:39 Giant Platelets Not Reportable 08/15/19 20:39 Platelet Satelliting Not Reportable 08/15/19 20:39 Plt Morphology Comment Not Reportable 08/15/19 20:39 RBC Morphology Not Reportable 08/15/19 20:39 Dimorphic RBCs Not Reportable 08/15/19 20:39 Polychromasia Not Reportable 08/15/19 20:39 Hypochromasia Not Reportable 08/15/19 20:39 Poikilocytosis 1+ 08/15/19 20:39 Anisocytosis 1+ 08/15/19 20:39 Microcytosis Not Reportable 08/15/19 20:39 Macrocytosis Not Reportable 08/15/19 20:39 Spherocytes Not Reportable 08/15/19 20:39 Pappenheimer Bodies Not Reportable 08/15/19 20:39 Sickle Cells Not Reportable 08/15/19 20:39 Target Cells Not Reportable 08/15/19 20:39 Tear Drop Cells Not Reportable 08/15/19 20:39 Ovalocytes Not Reportable 08/15/19 20:39 Helmet Cells Not Reportable 08/15/19 20:39 Miranda-[place] Bodies Not Reportable 08/15/19 20:39 [place] Rings Not Reportable 08/15/19 20:39 Hague Cells Not Reportable 08/15/19 20:39 Bite Cells Not Reportable 08/15/19 20:39 Crenated Cell Not Reportable 08/15/19 20:39 Elliptocytes Not Reportable 08/15/19 20:39 Acanthocytes (Spur) Not Reportable 08/15/19 20:39 Rouleaux Not Reportable 08/15/19 20:39 Hemoglobin C Crystals Not Reportable 08/15/19 20:39 Schistocytes Not Reportable 08/15/19 20:39 Malaria parasites Not Reportable 08/15/19 20:39 Fred Bodies Not Reportable 08/15/19 20:39 Hem Pathologist Commnt No 08/15/19 20:39 PT 15.2 Sec. (12.2-14.9) H 08/16/19 04:49 INR 1.18 (0.87-1.13) H 08/16/19 04:49 APTT 35.9 Sec. (24.2-36.6) 08/16/19 04:49 Heparin Anti-Xa Level 0.39 U.I./ml (0.3-0.7) 08/17/19 06:01 Sodium 141 mmol/L (137-145) 08/17/19 05:45 Potassium 3.9 mmol/L (3.6-5.0) 08/17/19 05:45 Chloride 104.3 mmol/L (98-107) 08/17/19 05:45 Carbon Dioxide 19 mmol/L (22-30) L 08/17/19 05:45 Anion Gap 22 mmol/L 08/17/19 05:45 BUN 42 mg/dL (9-20) H 08/17/19 05:45 Creatinine 4.0 mg/dL (0.8-1.5) H 08/17/19 05:45 Estimated GFR 18 ml/min 08/17/19 05:45 BUN/Creatinine Ratio 11 % 08/17/19 05:45 Glucose 151 mg/dL (75-100) H 08/17/19 05:45 POC Glucose 189 (70-105) H 08/16/19 21:37 Lactic Acid 1.10 mmol/L (0.7-2.0) 08/15/19 20:39 Calcium 9.1 mg/dL (8.4-10.2) 08/17/19 05:45 Total Bilirubin 0.40 mg/dL (0.1-1.2) 08/15/19 20:39 AST 33 units/L (5-40) 08/15/19 20:39 ALT 18 units/L (7-56) 08/15/19 20:39 Alkaline Phosphatase 91 units/L (35-129) 08/15/19 20:39 Total Creatine Kinase 2928 units/L (55-170) H 08/16/19 04:49 CK-MB (CK-2) 20.5 ng/mL (0.0-4.0) H 08/16/19 04:49 CK-MB (CK-2) Rel Index 0.7 (0-4) 08/16/19 04:49 Troponin T 0.451 ng/mL (0.00-0.029) H* 08/16/19 21:40 NT-Pro-B Natriuret Pep 70225 pg/mL (0-900) H 08/15/19 20:39 Total Protein 7.2 g/dL (6.3-8.2) 08/15/19 20:39 Albumin 4.1 g/dL (3.9-5) 08/15/19 20:39 Albumin/Globulin Ratio 1.3 % 08/15/19 20:39 Triglycerides 94 mg/dL (2-149) 08/15/19 20:39 Cholesterol 138 mg/dL (50-199) 08/15/19 20:39 LDL Cholesterol Direct 86 mg/dL (50-130) 08/15/19 20:39 HDL Cholesterol 45 mg/dL (40-59) 08/15/19 20:39 Cholesterol/HDL Ratio 3.06 % 08/15/19 20:39 Active Medications - Current Medications Current Medications: Generic Name Dose Route Start Last Admin Trade Name Freq PRN Reason Stop Dose Admin Acetaminophen 650 mg 08/15/19 23:28 Tylenol PO Q4H PRN Headache Albuterol 2.5 mg 08/16/19 02:00 08/17/19 01:00 Proventil IH 2.5 mg Q6HRT JOSHUA Administration Amlodipine Besylate 10 mg 08/16/19 10:00 08/16/19 10:14 Amlodipine PO 10 mg QDAY JOSHUA Administration Aspirin 81 mg 08/16/19 10:00 08/16/19 10:15 Halfprin Ec PO 81 mg QDAY JOSHUA Administration Atorvastatin Calcium 80 mg 08/16/19 22:00 08/16/19 21:52 Lipitor PO 80 mg QHS JOSHUA Administration Carvedilol 25 mg 08/16/19 10:00 08/16/19 21:51 Coreg PO 25 mg BID JOSHUA Administration Clonidine HCl 0.1 mg 08/15/19 23:45 08/16/19 21:50 Catapres-Tts Patch TD 0.1 mg Fr@2200 JOSHUA Administration Dextrose 50 ml 08/15/19 23:23 D50w (25gm) Syringe IV Q30MIN PRN Hypoglycemia Protocol Furosemide 40 mg 08/16/19 10:00 08/16/19 10:15 Lasix IV 40 mg QDAY JOSHUA Administration Guaifenesin 200 mg 08/15/19 23:29 08/17/19 07:39 Robitussin PO 200 mg Q4H PRN Administration Cough Hydralazine HCl 100 mg 08/16/19 08:00 08/17/19 07:39 Apresoline PO 100 mg TID JOSHUA Administration Heparin Sodium/Sodium Chloride 25,000 unit in 500 mls @ 20 mls/hr 08/16/19 02:00 08/17/19 07:27 Heparin/ 0.45% Nacl-25,000 Unit/500 Ml IV 1,500 units/hr TITRATE JOSHUA 30 mls/hr Titration Protocol 1,000 UNITS/HR Nicardipine HCl 50 mg/ Sodium 250 mls @ 25 mls/hr 08/16/19 20:00 08/17/19 07:10 Chloride IV 7.5 mg/hr TITR JOSHUA 37.5 mls/hr Titration Protocol 5 MG/HR Insulin Glargine 15 units 08/16/19 22:00 08/16/19 23:00 Lantus SUB-Q 15 units QHS JOSUHA Administration Insulin Human Regular 0 units 08/16/19 07:30 08/16/19 17:55 Humulin R SUB-Q 2 units AC JOSHUA Administration Protocol Insulin Human Regular 0 units 08/16/19 22:00 08/16/19 21:49 Humulin R SUB-Q 1 units QHS JOSHUA Administration Protocol Ondansetron HCl 4 mg 08/15/19 23:28 Zofran IV Q8H PRN Nausea And Vomiting Potassium Chloride 20 meq 08/16/19 10:00 08/16/19 10:15 K-Dur PO 20 meq QDAY JOSHUA Administration
[2019-08-17] MEDS: INSULIN REGULAR, HUMAN 100 UNITS/1 ML SUB-Q SCH ×3 (07:50→16:48)
[2019-08-17] MEDS: POTASSIUM CHLORIDE ER 10 MEQ TAB PO SCH (10:32)
[2019-08-17] MEDS: ASPIRIN EC 81 MG TAB PO SCH (10:32)
[2019-08-17] MEDS: carvediloL 25 MG TAB PO SCH ×2 (10:32→21:42)
[2019-08-17] MEDS: amLODIPine 10 MG TAB PO SCH (10:32)
[2019-08-17] MEDS: FUROSEMIDE 40 MG/4 ML INJ IV SCH ×2 (10:33→19:21)
--- NOTE | 2019-08-17 11:27 | Consultation ---
History of Present Illness - Reason for Consult Consult date: 08/17/19 Hypertensive Emergency Requesting physician: LAURA ASHER - History of Present Illness 64 y/o male with systolic CHF, Hypertension and CKD admitted with hypertensive emergency and acute respiratory failure requiring bipap therapy. Was started on nitro drip in the ED, but no improvement in BP despite adding home oral meds so changed to cardene drip. Currently in ICU on cardene at 10. Per documentation breathing is better. Currently on 3 liters NC in no apparent distress. Remainder is negative. Past History Past Medical History: CAD, diabetes, heart failure, hypertension, renal failure, other (AICD in situ) Medications and Allergies Allergies Allergy/AdvReac Type Severity Reaction Status Date / Time No Known Allergies Allergy Verified 08/15/19 18:58 Home Medications Medication Instructions Recorded Confirmed Last Taken Type Amlodipine Besylate [Norvasc] 10 mg PO QDAY 08/15/19 08/15/19 Unknown History Aspirin EC [Halfprin EC] 81 mg PO QDAY 08/15/19 08/15/19 Unknown History Atorvastatin Calcium [Lipitor] 80 mg PO QHS 08/15/19 08/15/19 Unknown History Clopidogrel [Plavix] 75 mg PO QDAY 08/15/19 08/15/19 Unknown History Furosemide [Lasix TAB] 80 mg PO QDAY 08/15/19 08/15/19 Unknown History Insulin Detemir [Levemir Flextouch] 15 unit SQ QHS 08/15/19 08/15/19 Unknown History Isosorbide Dinitrate [Isordil] 40 mg PO TID 08/15/19 08/15/19 Unknown History Potassium Chloride [K-Dur] 20 meq PO QDAY 08/15/19 08/15/19 Unknown History carvediloL [Coreg] 25 mg PO BID 08/15/19 08/15/19 Unknown History cloNIDine-TTS PATCH [Catapres-Tts 1 patch TD Q7D 08/15/19 08/15/19 Unknown History 0.1MG Patch] hydrALAZINE [Apresoline TAB] 100 mg PO TID 08/15/19 08/15/19 Unknown History Active Meds: Active Medications Acetaminophen (Tylenol) 650 mg PO Q4H PRN PRN Reason: Headache Albuterol (Proventil) 2.5 mg IH Q6HRT JOSHUA Last Admin: 08/17/19 08:16 Dose: 2.5 mg Documented by: Amlodipine Besylate (Amlodipine) 10 mg PO QDAY [facility] Last Admin: 08/17/19 10:32 Dose: 10 mg Documented by: Aspirin (Halfprin Ec) 81 mg PO QDAY [facility] Last Admin: 08/17/19 10:32 Dose: 81 mg Documented by: Atorvastatin Calcium (Lipitor) 80 mg PO QHS [facility] Last Admin: 08/16/19 21:52 Dose: 80 mg Documented by: Carvedilol (Coreg) 25 mg PO BID [facility] Last Admin: 08/17/19 10:32 Dose: 25 mg Documented by: Clonidine HCl (Catapres-Tts Patch) 0.1 mg TD Fr@2200 [facility] Last Admin: 08/16/19 21:50 Dose: 0.1 mg Documented by: Dextrose (D50w (25gm) Syringe) 50 ml IV Q30MIN PRN; Protocol PRN Reason: Hypoglycemia Furosemide (Lasix) 40 mg IV QDAY [facility] Last Admin: 08/17/19 10:33 Dose: 40 mg Documented by: Guaifenesin (Robitussin) 200 mg PO Q4H PRN PRN Reason: Cough Last Admin: 08/17/19 07:39 Dose: 200 mg Documented by: Hydralazine HCl (Apresoline) 100 mg PO TID [facility] Last Admin: 08/17/19 07:39 Dose: 100 mg Documented by: Heparin Sodium/Sodium Chloride (Heparin/ 0.45% Nacl-25,000 Unit/500 Ml) 25,000 unit in 500 mls @ 20 mls/hr IV TITRATE [facility]; Protocol Last Titration: 08/17/19 07:27 Dose: 1,500 units/hr, 30 mls/hr Documented by: Nicardipine HCl 50 mg/ Sodium (Chloride) 250 mls @ 25 mls/hr IV TITR [facility]; Protocol Last Admin: 08/17/19 09:32 Dose: 10 mg/hr, 50 mls/hr Documented by: Insulin Glargine (Lantus) 15 units SUB-Q QHS [facility] Last Admin: 08/16/19 23:00 Dose: 15 units Documented by: Insulin Human Regular (Humulin R) [address] units SUB-Q [facility]; Protocol Last Admin: 08/17/19 07:50 Dose: Not Given Documented by: Insulin Human Regular (Humulin R) 0 units SUB-Q QHS [facility]; Protocol Last Admin: 08/16/19 21:49 Dose: 1 units Documented by: Ondansetron HCl (Zofran) 4 mg IV Q8H PRN PRN Reason: Nausea And Vomiting Potassium Chloride (K-Dur) 20 meq PO QDAY [facility] Last Admin: 08/17/19 10:32 Dose: 20 meq Documented by: Review of Systems All systems: negative Exam - Constitutional Vitals: Temp Pulse Resp BP Pulse Ox 98.3 F 101 H 20 162/83 96 08/17/19 08:00 08/17/19 10:32 08/17/19 08:16 08/17/19 10:32 08/17/19 08:26 Results - Labs CBC & Chem 7: 08/17/19 05:45 08/17/19 05:45 Labs: Abnormal lab results 08/16/19 08/16/19 08/16/19 Range/Units 12:51 12:51 15:30 RBC (3.65-5.03) M/mm3 Hgb (11.8-15.2) gm/dl Hct (35.5-45.6) % Heparin Anti-Xa Level < 0.10 L (0.3-0.7) U.I./ml Carbon Dioxide (22-30) mmol/L BUN (9-20) mg/dL Creatinine (0.8-1.5) mg/dL Glucose (75-100) mg/dL POC Glucose 242 H (70-105) Troponin T 0.488 H* D (0.00-0.029) ng/mL 08/16/19 08/16/19 08/16/19 Range/Units 18:02 21:37 21:40 RBC (3.65-5.03) M/mm3 Hgb (11.8-15.2) gm/dl Hct (35.5-45.6) % Heparin Anti-Xa Level (0.3-0.7) U.I./ml Carbon Dioxide (22-30) mmol/L BUN (9-20) mg/dL Creatinine (0.8-1.5) mg/dL Glucose (75-100) mg/dL POC Glucose 237 H 189 H (70-105) Troponin T 0.451 H* (0.00-0.029) ng/mL 08/16/19 08/17/19 08/17/19 Range/Units 21:40 05:45 05:45 RBC 3.09 L (3.65-5.03) M/mm3 Hgb 9.5 L (11.8-15.2) gm/dl Hct 28.2 L (35.5-45.6) % Heparin Anti-Xa Level < 0.10 L (0.3-0.7) U.I./ml Carbon Dioxide 19 L (22-30) mmol/L BUN 42 H (9-20) mg/dL Creatinine 4.0 H (0.8-1.5) mg/dL Glucose 151 H (75-100) mg/dL POC Glucose (70-105) Troponin T (0.00-0.029) ng/mL 08/17/19 Range/Units 08:08 RBC (3.65-5.03) M/mm3 Hgb (11.8-15.2) gm/dl Hct (35.5-45.6) % Heparin Anti-Xa Level (0.3-0.7) U.I./ml Carbon Dioxide (22-30) mmol/L BUN (9-20) mg/dL Creatinine (0.8-1.5) mg/dL Glucose (75-100) mg/dL POC Glucose 145 H (70-105) Troponin T (0.00-0.029) ng/mL - Imaging and Cardiology Chest x-ray: image reviewed (Cardiomegaly with pulmonary venous congestion, most likely edema) Assessment and Plan 64 y/o male with hypertensive emergency resulting in acute respiratory failure. 1. patient was on lasix 80 at home. Only on 40 IV daily, may need to increase to at least 60 IV daily 2. Agree with oral therapy, patient now has on a clonidine patch at 0.1 3. Follow up cardiology recs, heparin drip at their request given history and trop leak 4. Wean Cardene for systolics of 150 and lower. CCT 31 minutes.
--- NOTE | 2019-08-17 12:46 | Consultation ---
History of Present Illness - Reason for Consult Consult date: 08/17/19 acute renal failure, chronic renal failure, accelerated hypertension - History of Present Illness Mr. Posada is a 64 YO AAM with history significant for DM type 2, Uncontrolled HTN, chronic HFrEF (EF 30%), Cardiomyopathy, AICD in situ, CAD s/p PCI to the LAD in 2016 and CKD stage 4 who presented to [facility] with worsening SOB over the past several days. He admits orthopnea and PEREZ. Patient denies any N, V, D, dysuira, hematuria, cough, hemoptysis, cp, leg swelling, dizziness or syncope. Initial BP was around 200/120. Labs significant for Creat 4 and bicarb 19. On admission, his oxygen saturation was in the 80s, and he ultimately required BiPAP. A CXR was significant for cardiomegaly and interstitial pulmonary edema. Currently he is in the ICU and on Nicardipine drip. Nephrology was consulted for further evaluation. Past History Past Medical History: CAD, diabetes, heart failure, hypertension, hyperlipidemia, renal failure, other (AICD in situ) Medications and Allergies Allergies Allergy/AdvReac Type Severity Reaction Status Date / Time No Known Allergies Allergy Verified 08/15/19 18:58 Home Medications Medication Instructions Recorded Confirmed Last Taken Type Amlodipine Besylate [Norvasc] 10 mg PO QDAY 08/15/19 08/15/19 Unknown History Aspirin EC [Halfprin EC] 81 mg PO QDAY 08/15/19 08/15/19 Unknown History Atorvastatin Calcium [Lipitor] 80 mg PO QHS 08/15/19 08/15/19 Unknown History Clopidogrel [Plavix] 75 mg PO QDAY 08/15/19 08/15/19 Unknown History Furosemide [Lasix TAB] 80 mg PO QDAY 08/15/19 08/15/19 Unknown History Insulin Detemir [Levemir Flextouch] 15 unit SQ QHS 08/15/19 08/15/19 Unknown History Isosorbide Dinitrate [Isordil] 40 mg PO TID 08/15/19 08/15/19 Unknown History Potassium Chloride [K-Dur] 20 meq PO QDAY 08/15/19 08/15/19 Unknown History carvediloL [Coreg] 25 mg PO BID 08/15/19 08/15/19 Unknown History cloNIDine-TTS PATCH [Catapres-Tts 1 patch TD Q7D 08/15/19 08/15/19 Unknown History 0.1MG Patch] hydrALAZINE [Apresoline TAB] 100 mg PO TID 08/15/19 08/15/19 Unknown History Active Meds: Active Medications Acetaminophen (Tylenol) 650 mg PO Q4H PRN PRN Reason: Headache Albuterol (Proventil) 2.5 mg IH Q6HRT [facility] Last Admin: 08/17/19 08:16 Dose: 2.5 mg Documented by: Amlodipine Besylate (Amlodipine) 10 mg PO QDAY [facility] Last Admin: 08/17/19 10:32 Dose: 10 mg Documented by: Aspirin (Halfprin Ec) 81 mg PO QDAY [facility] Last Admin: 08/17/19 10:32 Dose: 81 mg Documented by: Atorvastatin Calcium (Lipitor) 80 mg PO QHS [facility] Last Admin: 08/16/19 21:52 Dose: 80 mg Documented by: Carvedilol (Coreg) 25 mg PO BID [facility] Last Admin: 08/17/19 10:32 Dose: 25 mg Documented by: Clonidine HCl (Catapres-Tts Patch) 0.1 mg TD Fr@2200 [facility] Last Admin: 08/16/19 21:50 Dose: 0.1 mg Documented by: Dextrose (D50w (25gm) Syringe) 50 ml IV Q30MIN PRN; Protocol PRN Reason: Hypoglycemia Furosemide (Lasix) 40 mg IV QDAY [facility] Last Admin: 08/17/19 10:33 Dose: 40 mg Documented by: Guaifenesin (Robitussin) 200 mg PO Q4H PRN PRN Reason: Cough Last Admin: 08/17/19 07:39 Dose: 200 mg Documented by: Hydralazine HCl (Apresoline) 100 mg PO TID [facility] Last Admin: 08/17/19 07:39 Dose: 100 mg Documented by: Heparin Sodium/Sodium Chloride (Heparin/ 0.45% Nacl-25,000 Unit/500 Ml) 25,000 unit in 500 mls @ 20 mls/hr IV TITRATE [facility]; Protocol Last Titration: 08/17/19 07:27 Dose: 1,500 units/hr, 30 mls/hr Documented by: Nicardipine HCl 50 mg/ Sodium (Chloride) 250 mls @ 25 mls/hr IV TITR [facility]; Protocol Last Titration: 08/17/19 12:01 Dose: 5 mg/hr, 25 mls/hr Documented by: Insulin Glargine (Lantus) 15 units SUB-Q QHS [facility] Last Admin: 08/16/19 23:00 Dose: 15 units Documented by: Insulin Human Regular (Humulin R) 0 units SUB-Q AC [facility]; Protocol Last Admin: 08/17/19 12:05 Dose: 1 units Documented by: Insulin Human Regular (Humulin R) 0 units SUB-Q QHS [facility]; Protocol Last Admin: 08/16/19 21:49 Dose: 1 units Documented by: Ondansetron HCl (Zofran) 4 mg IV Q8H PRN PRN Reason: Nausea And Vomiting Potassium Chloride (K-Dur) 20 meq PO QDAY [facility] Last Admin: 08/17/19 10:32 Dose: 20 meq Documented by: Review of Systems Constitutional: fatigue, no weight loss, no weight gain, no fever, no chills, no anorexia, no weakness Cardiovascular: orthopnea, shortness of breath, dyspnea on exertion, high blood pressure, decreased exercise tolerance, no chest pain, no palpitations, no edema, no syncope, no lightheadedness, no leg edema Respiratory: shortness of breath, dyspnea on exertion, no cough, no cough with sputum, no hemoptysis, no home oxygen Gastrointestinal: no abdominal pain, no nausea, no vomiting, no diarrhea, no melena Genitourinary Male: no dysuria, no hematuria Musculoskeletal: no muscle weakness, no muscle cramps Integumentary: no rash, no redness, no sores, no wounds, no jaundice Neurological: no paralysis, no weakness, no seizures, no syncope, no change in speech, no change in mentation, no confusion Exam - Vital Signs Vital signs: Vital Signs Pulse Resp BP Pulse Ox 98 H 16 193/110 100 08/15/19 18:58 08/15/19 18:58 08/15/19 18:58 08/15/19 18:58 - General Appearance General appearance: well-developed, well-nourished, appears stated age, other (not in distress) EENT: ATNC, PERRL, hearing intact, vision intact Neck: Present: neck supple, trachea midline Respiratory: Rales Heart: regular, S1S2, no murmurs Gastrointestinal: Present: normoactive bowel sounds. Absent: tenderness, distended Integumentary: no rash, warm and dry Neurologic: no focal deficit, no asterixis, alert and oriented x3 Musculoskeletal: Present: other (no edema) Psychiatric: cooperative Results - Lab Results 08/17/19 05:45 08/17/19 05:45 Most recent lab results Calcium 9.1 mg/dL (8.4-10.2) 08/17/19 05:45 - Image Kidney/bladder ultrasound: pending Assessment and Plan 1. Acute kidney injury: Abrahamley vasomotor EVANS superimposed on CKD stage 4. Renal US and Urine studies ordered. Baseline creatinine 3.5 last month. Monitor renal function. Renal prognosis is guarded. Avoid nephrotoxic agents. Meds dosage based on GFR. 2. FEN: Volume overload, Lasix increased. If pt is not diuresing well he need hemodialysis / Isolated UF. Metabolic acidosis, monitor. Monitor lytes. 3. Uncontrolled HTN: On Nicardipine drip. 4. Acute hypoxic respiratory failure: Continue supplemental O2. 5. NSTEMI type 2: Followed by Cards. 6. Acute on chronic HFpEF. 7. Normochromic anemia: POA. 8. DM type 2: Monitor.
[2019-08-17] MEDS ORDERED: FUROSEMIDE 40 MG/4 ML INJ IV ONE (12:58)
--- NOTE | 2019-08-17 14:31 | Progress Note ---
Assessment and Plan Troponins peaked at 0.488, now downtrending. Will consider f/u ischemic evaluation when renal function stabilizes, possibly as outpatient; however, troponin elevation could be secondary to worsening renal function and acute on chronic HFrEF. Patient is currently free of chest pain. Continue current cardiac management at this time. The patient has been seen in conjunction with Dr. Hardy, who agrees with the assessment and plan. - Patient Problems (1) NSTEMI (non-ST elevated myocardial infarction) Current Visit: Yes Status: Acute (2) Acute on chronic HFrEF (heart failure with reduced ejection fraction) Current Visit: Yes Status: Acute (3) Respiratory distress Current Visit: Yes Status: Acute (4) AICD (automatic cardioverter/defibrillator) present Current Visit: Yes Status: Chronic (5) CAD (coronary artery disease) Current Visit: Yes Status: Chronic (6) Stented coronary artery Current Visit: Yes Status: Chronic (7) CKD (chronic kidney disease) Current Visit: Yes Status: Chronic (8) Hypertension Current Visit: Yes Status: Chronic (9) Diabetes mellitus Current Visit: Yes Status: Chronic Subjective Date of service: 08/17/19 Interval history: The patient is lying in bed in [facility]. He is weaned off BiPAP and on supplemental oxygen via NC. No complaints. Remains on Cardene drip. Telemetry reviewed - SR in 80s. Echocardiogram on 08/16 reviewed: EF 15 to 20 percent, moderate LVH, LV severely dilated, LA severely dilated, small pericardial effusion, small pleural effusion. Objective Last Vital Signs Temp 98.3 F 08/17/19 08:00 Pulse 85 08/17/19 13:10 Resp 24 08/17/19 13:10 BP 148/82 08/17/19 13:00 Pulse Ox 94 08/17/19 13:00 - Physical Examination HEENT: Positive: PERRL Neck: Positive: neck supple, trachea midline Cardiac: Positive: Reg Rate and Rhythm Lungs: Positive: Normal Exam Neuro: Positive: Grossly Intact Abdomen: Positive: Unremarkable Skin: Positive: Clear Musculoskeletal: Normal Range of Motion Extremities: Present: normal - Labs and Meds CBC 08/17/19 Range/Units 05:45 WBC 7.4 (4.5-11.0) K/mm3 RBC 3.09 L (3.65-5.03) M/mm3 Hgb 9.5 L (11.8-15.2) gm/dl Hct 28.2 L (35.5-45.6) % Plt Count 205 (140-440) K/mm3 Comprehensive Metabolic Panel 08/17/19 Range/Units 05:45 Sodium 141 (137-145) mmol/L Potassium 3.9 (3.6-5.0) mmol/L Chloride 104.3 (98-107) mmol/L Carbon Dioxide 19 L (22-30) mmol/L BUN 42 H (9-20) mg/dL Creatinine 4.0 H (0.8-1.5) mg/dL Glucose 151 H (75-100) mg/dL Calcium 9.1 (8.4-10.2) mg/dL - Imaging and Cardiology Echo: report reviewed (08/16/2019: EF 15-20%, mod LVH, LV severely dilated, LA severely dilated, small pericardial effusion, small pleural effusion) Cardiac cath: report reviewed (2016: 1. Euvolemic state with right atrial pressure 3-5, pulmonary capillary)
[2019-08-17] MEDS: HEPARIN/ 0.45% NACL DRIP 25,000 UNIT/500 ML BAG IV SCH (15:45)
[2019-08-17 18:40] LABS: Mucus,Urine FEW /HPF
[2019-08-17 18:41] LABS: Bilirubin,Urine NEG (Negative); Blood,Urine SM (Negative); Color,Urine Yellow (Yellow); Urobilinogen,Urine < 2.0 mg/dL (<2.0)
[2019-08-17 18:54] LABS: Creatinine,Urine 77.8 mg/dL (0.1-20.0)
--- NOTE | 2019-08-17 21:12 | Ultrasound Report ---
Bilateral renal ultrasound. 08/17/2019. HISTORY: Renal failure. FINDINGS: Right kidney measures 10.4 cm. Cortex measures 1.9 cm. A nonobstructing stone at the lower pole measu res 6 mm. Left kidney measures 12.2 cm. Cortex measures 1.2 cm. A lower pole cyst measures 1.4 cm. The bladder is unremarkable. A small amount of free fluid is noted. IMPRESSION: 1. Negative for renal obstruction. 2. Nonobstructing right renal stone. 3. Small amount of free fluid. Signer Name: Adán Barton MD Signed: 08/17/2019 9:08 PM Workstation Name: [id number]
[2019-08-17] MEDS: INSULIN GLARGINE 100 UNITS/ML SUB-Q SCH (22:00)
[2019-08-18] MEDS: ALBUTEROL 2.5 MG/3 ML NEBU IH SCH ×4 (02:31→20:07)
[2019-08-18 05:44] LABS: Hematocrit 28.3 % (35.5-45.6); Hemoglobin 9.6 gm/dl (11.8-15.2); Mean Corpuscular HGB Conc 34 % (32-34); Mean Corpuscular Volume 91 fl (84-94); Platelet Count 214 K/mm3 (140-440); Red Blood Count 3.13 M/mm3 (3.65-5.03); Red Cell Distribution Width 13.9 % (13.2-15.2)
[2019-08-18] MEDS: FUROSEMIDE 40 MG/4 ML INJ IV SCH ×2 (05:58→18:19)
[2019-08-18 06:00] LABS: Calcium 9.3 mg/dL (8.4-10.2)
[2019-08-18] MEDS: hydrALAZINE 100 MG TAB PO SCH ×3 (07:57→21:53)
[2019-08-18] MEDS: INSULIN REGULAR, HUMAN 100 UNITS/1 ML SUB-Q SCH ×2 (07:57)
[2019-08-18] MEDS: HEPARIN/ 0.45% NACL DRIP 25,000 UNIT/500 ML BAG IV SCH (08:00)
--- NOTE | 2019-08-18 09:20 | Progress Note ---
Assessment and Plan Assessment and plan: Patient is a 64 yo man with a history of hypertension and CHF (first visit in our EMR) who presented to [facility] ED with severe SOB requiring Bipap, pulse ox was only 83%. * pCXR Impression: Cardiomegaly and interstitial pulmonary edema -Acute on chronic decompensated systolic heart failure: treat with iv lasix, consult Cardiology, ECHO reviewed, EF 15-20% -Acute hypoxic respiratory failure: wean off bipap, on O2 via nasal canula, consulted CCM/Pulm, not sure why no evaluation -ARF, vasomotor nephropathy: treat the CHF, consulted Nephrology, input noted -NSTEMI; on heparin drip and off NTG drip, d/w Cardiology ok to d/c heparin drip and move to tele, needs ischemic evaluation but Cr is 3.9 -Malignant Hypertension: off NTG drip, was switched to Cardene iv drip and both have been off since Sunday -Uncontrolled type 2 DM: add ssi, monitor blood glucose closely and make adjustment accordingly -SIRs, noninfectious with organ dysfunction, poa: continue to treat the CHF and ARF -Anemia: check FOBT pending (not sure why not collected), monitor CBC closely, repeat in am -DVT ppx: d/c heparin drip and start sq heparin Disposition: continue inpatient care, transfer to telemetry. full code History Interval history: Patient was seen and examined. Follow-up on current diagnosis of CHF. No overnight events reported to me. Patient denies any nausea/vomiting or severe headaches. Imaging, nursing note, chart, labs and old chart reviewed. Discussed with patient. He still has SOB but improved, denies chest pains. Still in ICU, off Cardene since Sunday. Still on iv heparin drip. Hospitalist Physical - Physical exam Narrative exam: Gen: ill appearing, mild increase usage of accessory muscles, Awake, Alert, Orientated x 3 HEENT: NCAT, EOMI, PERRL, OP Clear Neck: supple, no adenopathy, no thyromegaly, JVD CVS/Heart: RRR, normal S1S2, pulses present bilaterally Chest/Lungs: bilateral crackles and diminished bs, Symmetrical chest expansion, good air entry bilaterally GI/Abdomen: soft, NTND, good bowel sounds, no guarding or rebound /Bladder: no suprapubic tenderness, no CVA or paraspinal tenderness Extermity/Skin: +pitting ble edema, no obvious rash MSK: FROM x 4 Neuro: CN 2-12 grossly intact, no new focal deficits Psych: calm - Constitutional Vitals: Temp Pulse Resp BP Pulse Ox 99.0 F 93 H 35 H 194/108 96 08/18/19 04:00 08/18/19 08:00 08/18/19 08:00 08/18/19 08:00 08/18/19 08:57 General appearance: Absent: mild distress Results - Labs CBC & Chem 7: 08/18/19 04:12 08/18/19 04:12 Labs: Laboratory Last Values WBC 7.1 K/mm3 (4.5-11.0) 08/18/19 04:12 RBC 3.13 M/mm3 (3.65-5.03) L 08/18/19 04:12 Hgb 9.6 gm/dl (11.8-15.2) L 08/18/19 04:12 Hct 28.3 % (35.5-45.6) L 08/18/19 04:12 MCV 91 fl (84-94) 08/18/19 04:12 MCH 31 pg (28-32) 08/18/19 04:12 MCHC 34 % (32-34) 08/18/19 04:12 RDW 13.9 % (13.2-15.2) 08/18/19 04:12 Plt Count 214 K/mm3 (140-440) 08/18/19 04:12 Add Manual Diff Complete 08/15/19 20:39 Total Counted 100 08/15/19 20:39 Seg Neutrophils % Cutting Table Operator First 08/15/19 20:39 Seg Neuts % (Manual) 93.0 % (40.0-70.0) H 08/15/19 20:39 Band Neutrophils % 0 % 08/15/19 20:39 Lymphocytes % (Manual) 4.0 % (13.4-35.0) L 08/15/19 20:39 Reactive Lymphs % (Man) 0 % 08/15/19 20:39 Monocytes % (Manual) 3.0 % (0.0-7.3) 08/15/19 20:39 Eosinophils % (Manual) 0 % (0.0-4.3) 08/15/19 20:39 Basophils % (Manual) 0 % (0.0-1.8) 08/15/19 20:39 Metamyelocytes % 0 % 08/15/19 20:39 Myelocytes % 0 % 08/15/19 20:39 Promyelocytes % 0 % 08/15/19 20:39 Blast Cells % 0 % 08/15/19 20:39 Nucleated RBC % Not Reportable 08/15/19 20:39 Seg Neutrophils # Man 7.5 K/mm3 (1.8-7.7) 08/15/19 20:39 Band Neutrophils # 0.0 K/mm3 08/15/19 20:39 Lymphocytes # (Manual) 0.3 K/mm3 (1.2-5.4) L 08/15/19 20:39 Abs React Lymphs (Man) 0.0 K/mm3 08/15/19 20:39 Monocytes # (Manual) 0.2 K/mm3 (0.0-0.8) 08/15/19 20:39 Eosinophils # (Manual) 0.0 K/mm3 (0.0-0.4) 08/15/19 20:39 Basophils # (Manual) 0.0 K/mm3 (0.0-0.1) 08/15/19 20:39 Metamyelocytes # 0.0 K/mm3 08/15/19 20:39 Myelocytes # 0.0 K/mm3 08/15/19 20:39 Promyelocytes # 0.0 K/mm3 08/15/19 20:39 Blast Cells # 0.0 K/mm3 08/15/19 20:39 WBC Morphology Not Reportable 08/15/19 20:39 Hypersegmented Neuts Not Reportable 08/15/19 20:39 Hyposegmented Neuts Not Reportable 08/15/19 20:39 Hypogranular Neuts Not Reportable 08/15/19 20:39 Smudge Cells Not Reportable 08/15/19 20:39 Toxic Granulation Not Reportable 08/15/19 20:39 Toxic Vacuolation Not Reportable 08/15/19 20:39 Dohle Bodies Not Reportable 08/15/19 20:39 Pelger-Huet Anomaly Not Reportable 08/15/19 20:39 Alysia Rods Not Reportable 08/15/19 20:39 Platelet Estimate Consistent w auto 08/15/19 20:39 Clumped Platelets Not Reportable 08/15/19 20:39 Plt Clumps, EDTA Not Reportable 08/15/19 20:39 Large Platelets 1+ 08/15/19 20:39 Giant Platelets Not Reportable 08/15/19 20:39 Platelet Satelliting Not Reportable 08/15/19 20:39 Plt Morphology Comment Not Reportable 08/15/19 20:39 RBC Morphology Not Reportable 08/15/19 20:39 Dimorphic RBCs Not Reportable 08/15/19 20:39 Polychromasia Not Reportable 08/15/19 20:39 Hypochromasia Not Reportable 08/15/19 20:39 Poikilocytosis 1+ 08/15/19 20:39 Anisocytosis 1+ 08/15/19 20:39 Microcytosis Not Reportable 08/15/19 20:39 Macrocytosis Not Reportable 08/15/19 20:39 Spherocytes Not Reportable 08/15/19 20:39 Pappenheimer Bodies Not Reportable 08/15/19 20:39 Sickle Cells Not Reportable 08/15/19 20:39 Target Cells Not Reportable 08/15/19 20:39 Tear Drop Cells Not Reportable 08/15/19 20:39 Ovalocytes Not Reportable 08/15/19 20:39 Helmet Cells Not Reportable 08/15/19 20:39 Miranda-Raynesford Bodies Not Reportable 08/15/19 20:39 Wayne Rings Not Reportable 08/15/19 20:39 Stockett Cells Not Reportable 08/15/19 20:39 Bite Cells Not Reportable 08/15/19 20:39 Crenated Cell Not Reportable 08/15/19 20:39 Elliptocytes Not Reportable 08/15/19 20:39 Acanthocytes (Spur) Not Reportable 08/15/19 20:39 Rouleaux Not Reportable 08/15/19 20:39 Hemoglobin C Crystals Not Reportable 08/15/19 20:39 Schistocytes Not Reportable 08/15/19 20:39 Malaria parasites Not Reportable 08/15/19 20:39 Fred Bodies Not Reportable 08/15/19 20:39 Hem Pathologist Commnt No 08/15/19 20:39 PT 15.2 Sec. (12.2-14.9) H 08/16/19 04:49 INR 1.18 (0.87-1.13) H 08/16/19 04:49 APTT 35.9 Sec. (24.2-36.6) 08/16/19 04:49 Heparin Anti-Xa Level 0.28 U.I./ml (0.3-0.7) L 08/18/19 04:12 Sodium 140 mmol/L (137-145) 08/18/19 04:12 Potassium 3.8 mmol/L (3.6-5.0) 08/18/19 04:12 Chloride 102.7 mmol/L (98-107) 08/18/19 04:12 Carbon Dioxide 18 mmol/L (22-30) L 08/18/19 04:12 Anion Gap 23 mmol/L 08/18/19 04:12 BUN 49 mg/dL (9-20) H 08/18/19 04:12 Creatinine 3.9 mg/dL (0.8-1.5) H 08/18/19 04:12 Estimated GFR 19 ml/min 08/18/19 04:12 BUN/Creatinine Ratio 13 % 08/18/19 04:12 Glucose 210 mg/dL (75-100) H 08/18/19 04:12 POC Glucose 228 (70-105) H 08/18/19 07:59 Lactic Acid 1.10 mmol/L (0.7-2.0) 08/15/19 20:39 Calcium 9.3 mg/dL (8.4-10.2) 08/18/19 04:12 Phosphorus 4.50 mg/dL (2.5-4.5) 08/18/19 04:12 Magnesium 1.90 mg/dL (1.7-2.3) 08/18/19 04:12 Total Bilirubin 0.40 mg/dL (0.1-1.2) 08/15/19 20:39 AST 33 units/L (5-40) 08/15/19 20:39 ALT 18 units/L (7-56) 08/15/19 20:39 Alkaline Phosphatase 91 units/L (35-129) 08/15/19 20:39 Total Creatine Kinase 2928 units/L (55-170) H 08/16/19 04:49 CK-MB (CK-2) 20.5 ng/mL (0.0-4.0) H 08/16/19 04:49 CK-MB (CK-2) Rel Index 0.7 (0-4) 08/16/19 04:49 Troponin T 0.451 ng/mL (0.00-0.029) H* 08/16/19 21:40 NT-Pro-B Natriuret Pep 92963 pg/mL (0-900) H 08/15/19 20:39 Total Protein 7.2 g/dL (6.3-8.2) 08/15/19 20:39 Albumin 4.1 g/dL (3.9-5) 08/15/19 20:39 Albumin/Globulin Ratio 1.3 % 08/15/19 20:39 Triglycerides 94 mg/dL (2-149) 08/15/19 20:39 Cholesterol 138 mg/dL (50-199) 08/15/19 20:39 LDL Cholesterol Direct 86 mg/dL (50-130) 08/15/19 20:39 HDL Cholesterol 45 mg/dL (40-59) 08/15/19 20:39 Cholesterol/HDL Ratio 3.06 % 08/15/19 20:39 Urine Color Yellow (Yellow) 08/17/19 18:18 Urine Turbidity Slightly-cloudy (Clear) 08/17/19 18:18 Urine pH 5.0 (5.0-7.0) 08/17/19 18:18 Ur Specific Alexander 1.010 (1.003-1.030) 08/17/19 18:18 Urine Protein 100 mg/dl mg/dL (Negative) 08/17/19 18:18 Urine Glucose (UA) Neg mg/dL (Negative) 08/17/19 18:18 Urine Ketones Neg mg/dL (Negative) 08/17/19 18:18 Urine Blood Sm (Negative) 08/17/19 18:18 Urine Nitrite Neg (Negative) 08/17/19 18:18 Ur Reducing Substances Not Reportable 08/17/19 18:18 Urine Bilirubin Neg (Negative) 08/17/19 18:18 Urine Ictotest Not Reportable 08/17/19 18:18 Urine Urobilinogen < 2.0 mg/dL (<2.0) 08/17/19 18:18 Ur Leukocyte Esterase Neg (Negative) 08/17/19 18:18 Urine WBC (Auto) 1.0 /HPF (0.0-6.0) 08/17/19 18:18 Urine RBC (Auto) 4.0 /HPF (0.0-6.0) 08/17/19 18:18 U Epithel Cells (Auto) < 1.0 /HPF (0-13.0) 08/17/19 18:18 Urine Mucus Few /HPF 08/17/19 18:18 Urine Yeast (Budding) Few /HPF 08/17/19 18:18 Urine Eosinophils None seen (None Seen) 08/17/19 18:18 Urine Creatinine 77.8 mg/dL (0.1-20.0) H 08/17/19 18:18 Urine Sodium 66 mmol/L 08/17/19 18:18 Active Medications - Current Medications Current Medications: Generic Name Dose Route Start Last Admin Trade Name Freq PRN Reason Stop Dose Admin Acetaminophen 650 mg 08/15/19 23:28 Tylenol PO Q4H PRN Headache Albuterol 2.5 mg 08/16/19 02:00 08/18/19 08:55 Proventil IH 2.5 mg Q6HRT JOSHUA Administration Amlodipine Besylate 10 mg 08/16/19 10:00 08/17/19 10:32 Amlodipine PO 10 mg QDAY JOSHUA Administration Aspirin 81 mg 08/16/19 10:00 08/17/19 10:32 Halfprin Ec PO 81 mg QDAY JOSHUA Administration Atorvastatin Calcium 80 mg 08/16/19 22:00 08/17/19 21:41 Lipitor PO 80 mg QHS JOSHUA Administration Carvedilol 25 mg 08/16/19 10:00 08/17/19 21:42 Coreg PO 25 mg BID JOSHUA Administration Clonidine HCl 0.1 mg 08/15/19 23:45 08/16/19 21:50 Catapres-Tts Patch TD 0.1 mg Fr@2200 JOSHUA Administration Dextrose 50 ml 08/15/19 23:23 D50w (25gm) Syringe IV Q30MIN PRN Hypoglycemia Protocol Furosemide 80 mg 08/17/19 18:00 08/18/19 05:58 Lasix IV 80 mg 0600,1800 JOSHUA Administration Guaifenesin 200 mg 08/15/19 23:29 08/17/19 07:39 Robitussin PO 200 mg Q4H PRN Administration Cough Hydralazine HCl 100 mg 08/16/19 08:00 08/18/19 07:57 Apresoline PO 100 mg TID JOSHUA Administration Heparin Sodium/Sodium Chloride 25,000 unit in 500 mls @ 20 mls/hr 08/16/19 02:00 08/18/19 08:00 Heparin/ 0.45% Nacl-25,000 Unit/500 Ml IV 1,600 units/hr TITRATE JOSHUA 32 mls/hr Administration Protocol 1,000 UNITS/HR Nicardipine HCl 50 mg/ Sodium 250 mls @ 25 mls/hr 08/16/19 20:00 08/17/19 13:32 Chloride IV 0 mg/hr TITR JOSHUA 0 mls/hr Titration Protocol 5 MG/HR Insulin Glargine 15 units 08/16/19 22:00 08/17/19 22:00 Lantus SUB-Q 15 units QHS JOSHUA Administration Insulin Human Regular 0 units 08/16/19 07:30 08/18/19 07:57 Humulin R SUB-Q 2 units AC JOSHUA Administration Protocol Insulin Human Regular 0 units 08/16/19 22:00 08/18/19 00:00 Humulin R SUB-Q 2 units QHS JOSHUA Administration Protocol Ondansetron HCl 4 mg 08/15/19 23:28 Zofran IV Q8H PRN Nausea And Vomiting Potassium Chloride 20 meq 08/16/19 10:00 08/17/19 10:32 K-Dur PO 20 meq QDAY JOSHUA Administration
[2019-08-18] MEDS ORDERED: DEXTROSE 50% IN WATER (25GM) 50 ML SYRINGE IV PRN (09:27)
--- NOTE | 2019-08-18 09:35 | Progress Note ---
Assessment and Plan Cardiac status is improving. Can discontinue Heparin drip as it has been 48 hours. Will resume home isosorbide to optimize blood pressures. He is stable for transfer to telemetry from our standpoint. The patient has been seen in conjunction with Dr. Gipson, who agrees with the assessment and plan. - Patient Problems (1) NSTEMI (non-ST elevated myocardial infarction) Current Visit: Yes Status: Acute (2) Acute on chronic HFrEF (heart failure with reduced ejection fraction) Current Visit: Yes Status: Acute (3) Respiratory distress Current Visit: Yes Status: Acute (4) AICD (automatic cardioverter/defibrillator) present Current Visit: Yes Status: Chronic (5) CAD (coronary artery disease) Current Visit: Yes Status: Chronic (6) Stented coronary artery Current Visit: Yes Status: Chronic (7) CKD (chronic kidney disease) Current Visit: Yes Status: Chronic (8) Hypertension Current Visit: Yes Status: Chronic (9) Diabetes mellitus Current Visit: Yes Status: Chronic Subjective Date of service: 08/18/19 Interval history: The patient is lying in bed with some SOB. Pulmonology following. Reports good UOP; net I/O is -103 mL. Blood pressure elevated, Cardene weaned off. SR in 80s on telemetry. Objective Last Vital Signs Temp 99.0 F 08/18/19 04:00 Pulse 93 H 08/18/19 08:00 Resp 35 H 08/18/19 08:00 BP 194/108 08/18/19 08:00 Pulse Ox 96 08/18/19 08:57 - Physical Examination General: Other (mild respiratory distress) HEENT: Positive: PERRL Neck: Positive: neck supple, trachea midline Cardiac: Positive: Reg Rate and Rhythm Lungs: Positive: clear to auscultation Neuro: Positive: Grossly Intact Abdomen: Positive: Unremarkable Skin: Positive: Clear Musculoskeletal: Normal Range of Motion Extremities: Present: normal - Labs and Meds CBC 08/18/19 Range/Units 04:12 WBC 7.1 (4.5-11.0) K/mm3 RBC 3.13 L (3.65-5.03) M/mm3 Hgb 9.6 L (11.8-15.2) gm/dl Hct 28.3 L (35.5-45.6) % Plt Count 214 (140-440) K/mm3 Comprehensive Metabolic Panel 08/18/19 Range/Units 04:12 Sodium 140 (137-145) mmol/L Potassium 3.8 (3.6-5.0) mmol/L Chloride 102.7 (98-107) mmol/L Carbon Dioxide 18 L (22-30) mmol/L BUN 49 H (9-20) mg/dL Creatinine 3.9 H (0.8-1.5) mg/dL Glucose 210 H (75-100) mg/dL Calcium 9.3 (8.4-10.2) mg/dL - Imaging and Cardiology Echo: report reviewed (08/16/2019: EF 15-20%, mod LVH, LV severely dilated, LA severely dilated, small pericardial effusion, small pleural effusion) Cardiac cath: report reviewed (2016: 1. Euvolemic state with right atrial pressure 3-5, pulmonary capillary) - Telemetry EKG Rhythm: Sinus Rhythm
[2019-08-18] MEDS: carvediloL 25 MG TAB PO SCH ×2 (09:45→21:53)
[2019-08-18] MEDS: ISOSORBIDE DINITRATE 20 MG TAB PO SCH ×2 (09:45→21:54)
[2019-08-18] MEDS: amLODIPine 10 MG TAB PO SCH (09:45)
[2019-08-18] MEDS: ASPIRIN EC 81 MG TAB PO SCH (09:45)
--- NOTE | 2019-08-18 10:20 | Progress Note ---
Assessment and Plan 1. Acute kidney injury: Marilynn vasomotor EVANS superimposed on CKD stage 4. Renal US and Urine studies ordered. Baseline creatinine 3.5 last month. Creatinine level around 4 during this admission. Monitor renal function. Renal prognosis is guarded. Avoid nephrotoxic agents. Meds dosage based on GFR. 2. FEN: Volume overload, continue IV Lasix. Metolazone added. Pt is not diuresing well. Explained pt that he need hemodialysis / UF to remove excess fluid. He wants to discuss with his . I also d/w his Rn Icu who agrees with the plan. Metabolic acidosis, monitor. Monitor lytes. 3. Uncontrolled HTN: Was on Nicardipine drip. 4. Acute hypoxic respiratory failure: Continue supplemental O2. 5. NSTEMI type 2: Followed by Cards. 6. Acute on chronic HFpEF. 7. Normochromic anemia: POA. 8. Elevated CK: Follow levels. 9. DM type 2: Monitor. Examination: General appearance: well-developed, well-nourished, appears stated age, slight distress HEENT: ATNC, RIVER, hearing intact, vision intact Neck: neck supple, trachea midline Respiratory: Rales Heart: regular, S1S2, no murmurs Gastrointestinal: Soft, normoactive bowel sounds, not tender, not distended Integumentary: no rash, warm and dry Neurologic: no focal deficit, no asterixis, alert and oriented x3 Ext: no edema Psychiatric: cooperative Subjective Date of service: 08/18/19 Interval history: Patient was seen and examined at the bedside. Objective - Vital Signs Vital signs: Vital Signs - 12hr 08/17/19 08/17/19 08/18/19 23:00 23:56 00:00 Temperature 98.1 F Pulse Rate 84 74 70 Pulse Rate [ Bilateral Throughout] Pulse Rate [ 98 H From Monitor] Pulse Rate [ 98 H Right Dorsalis Pedis] Respiratory 26 H 23 19 Rate Respiratory Rate [Bilateral Throughout] Blood Pressure 156/84 150/88 150/80 O2 Sat by Pulse 93 99 98 Oximetry 08/18/19 08/18/19 08/18/19 01:00 02:00 03:00 Temperature Pulse Rate 75 82 86 Pulse Rate [ Bilateral Throughout] Pulse Rate [ From Monitor] Pulse Rate [ Right Dorsalis Pedis] Respiratory 22 31 H 23 Rate Respiratory Rate [Bilateral Throughout] Blood Pressure 160/88 152/85 168/89 O2 Sat by Pulse 98 94 95 Oximetry 08/18/19 08/18/19 08/18/19 04:00 05:00 06:00 Temperature 99.0 F Pulse Rate 86 87 79 Pulse Rate [ Bilateral Throughout] Pulse Rate [ 98 H From Monitor] Pulse Rate [ 98 H Right Dorsalis Pedis] Respiratory 26 H 33 H 16 Rate Respiratory Rate [Bilateral Throughout] Blood Pressure 164/95 171/99 181/94 O2 Sat by Pulse 94 93 96 Oximetry 08/18/19 08/18/19 08/18/19 07:00 08:00 08:57 Temperature Pulse Rate 84 90 Pulse Rate [ 93 H Bilateral Throughout] Pulse Rate [ From Monitor] Pulse Rate [ Right Dorsalis Pedis] Respiratory 27 H 34 H Rate Respiratory 35 H Rate [Bilateral Throughout] Blood Pressure 191/101 194/108 O2 Sat by Pulse 96 93 96 Oximetry 08/18/19 08/18/19 08/18/19 09:00 09:45 10:00 Temperature Pulse Rate 94 H 93 H 89 Pulse Rate [ Bilateral Throughout] Pulse Rate [ From Monitor] Pulse Rate [ Right Dorsalis Pedis] Respiratory 31 H 28 H Rate Respiratory Rate [Bilateral Throughout] Blood Pressure 185/92 175/101 170/91 O2 Sat by Pulse 95 96 Oximetry - Lab 08/18/19 04:12 08/18/19 04:12 Most recent lab results Calcium 9.3 mg/dL (8.4-10.2) 08/18/19 04:12 Phosphorus 4.50 mg/dL (2.5-4.5) 08/18/19 04:12 Magnesium 1.90 mg/dL (1.7-2.3) 08/18/19 04:12 Urine Creatinine 77.8 mg/dL (0.1-20.0) H 08/17/19 18:18 Urine Sodium 66 mmol/L 08/17/19 18:18 Medications & Allergies - Medications Allergies/Adverse Reactions: Allergies No Known Allergies Allergy (Verified 08/15/19 18:58) Home Medications: Home Medications Medication Instructions Recorded Confirmed Last Taken Type Amlodipine Besylate [Norvasc] 10 mg PO QDAY 08/15/19 08/15/19 Unknown History Aspirin EC [Halfprin EC] 81 mg PO QDAY 08/15/19 08/15/19 Unknown History Atorvastatin Calcium [Lipitor] 80 mg PO QHS 08/15/19 08/15/19 Unknown History Clopidogrel [Plavix] 75 mg PO QDAY 08/15/19 08/15/19 Unknown History Furosemide [Lasix TAB] 80 mg PO QDAY 08/15/19 08/15/19 Unknown History Insulin Detemir [Levemir Flextouch] 15 unit SQ QHS 08/15/19 08/15/19 Unknown History Isosorbide Dinitrate [Isordil] 40 mg PO TID 08/15/19 08/15/19 Unknown History Potassium Chloride [K-Dur] 20 meq PO QDAY 08/15/19 08/15/19 Unknown History carvediloL [Coreg] 25 mg PO BID 08/15/19 08/15/19 Unknown History cloNIDine-TTS PATCH [Catapres-Tts 1 patch TD Q7D 08/15/19 08/15/19 Unknown History 0.1MG Patch] hydrALAZINE [Apresoline TAB] 100 mg PO TID 08/15/19 08/15/19 Unknown History Active Medications: Generic Name Dose Route Start Last Admin Trade Name Freq PRN Reason Stop Dose Admin Acetaminophen 650 mg 08/15/19 23:28 Tylenol PO Q4H PRN Headache Albuterol 2.5 mg 08/16/19 02:00 08/18/19 08:55 Proventil IH 2.5 mg Q6HRT JOSHUA Administration Amlodipine Besylate 10 mg 08/16/19 10:00 08/18/19 09:45 Amlodipine PO 10 mg QDAY JOSHUA Administration Aspirin 81 mg 08/16/19 10:00 08/18/19 09:45 Halfprin Ec PO 81 mg QDAY JOSHUA Administration Atorvastatin Calcium 80 mg 08/16/19 22:00 08/17/19 21:41 Lipitor PO 80 mg QHS JOSHUA Administration Bisacodyl 10 mg 08/18/19 09:31 08/18/19 09:49 Dulcolax IL 08/18/19 11:00 10 mg ONCE NR Administration Carvedilol 25 mg 08/16/19 10:00 08/18/19 09:45 Coreg PO 25 mg BID JOSHUA Administration Clonidine HCl 0.1 mg 08/15/19 23:45 08/16/19 21:50 Catapres-Tts Patch TD 0.1 mg Fr@2200 [facility] Administration Dextrose 50 ml 08/18/19 09:27 D50w (25gm) Syringe IV Q30MIN PRN Hypoglycemia Protocol Furosemide 80 mg 08/17/19 18:00 08/18/19 05:58 Lasix IV 80 mg 0600,1800 [facility] Administration Guaifenesin 200 mg 08/15/19 23:29 08/17/19 07:39 Robitussin PO 200 mg Q4H PRN Administration Cough Heparin Sodium (Porcine) 5,000 unit 08/19/19 10:00 Heparin SUB-Q Q12HR [facility] Hydralazine HCl 100 mg 08/16/19 08:00 08/18/19 07:57 Apresoline PO 100 mg TID [facility] Administration Insulin Glargine 15 units 08/16/19 22:00 08/17/19 22:00 Lantus SUB-Q 15 units QHS [facility] Administration Insulin Human Lispro 0 unit 08/18/19 11:30 Humalog SUB-Q ACHS [facility] Protocol Isosorbide Dinitrate 40 mg 08/18/19 10:00 08/18/19 09:45 Isordil Titradose PO 40 mg BID [facility] Administration Ondansetron HCl 4 mg 08/15/19 23:28 Zofran IV Q8H PRN Nausea And Vomiting
[2019-08-18] MEDS: metOLazone 5 MG TAB PO SCH (11:12)
[2019-08-18] MEDS: INSULIN LISPRO 100 UNIT/ML SUB-Q SCH ×3 (13:09→21:50)
[2019-08-18] MEDS: INSULIN GLARGINE 100 UNITS/ML SUB-Q SCH (21:58)
--- NOTE | 2019-08-18 23:21 | Progress Note ---
Assessment and Plan Imp: 1. ICMP 2. A/C systolic CHF -> pulm edema 3. Hypertensive urgency 4. Acute respiratory failure, hypoxia 5. EVANS Rec: 1. Diuresis 2. BP control 3. CXR in AM 4. Wean O2 to off, keeping sats 88% or > Plan of care reviewed w/ patient, he understands/agrees Subjective Date of service: 08/18/19 Principal diagnosis: Acute respiratory failure Interval history: No events. On nasal cannula. SOB is improving. No chest pain currently. No new complaints. Active Medications Acetaminophen (Tylenol) 650 mg PO Q4H PRN PRN Reason: Headache Albuterol (Proventil) 2.5 mg IH Q6HRT [facility] Last Admin: 08/18/19 20:07 Dose: 2.5 mg Documented by: Amlodipine Besylate (Amlodipine) 10 mg PO QDAY [facility] Last Admin: 08/18/19 09:45 Dose: 10 mg Documented by: Aspirin (Halfprin Ec) 81 mg PO QDAY [facility] Last Admin: 08/18/19 09:45 Dose: 81 mg Documented by: Atorvastatin Calcium (Lipitor) 80 mg PO QHS [facility] Last Admin: 08/18/19 21:53 Dose: 80 mg Documented by: Carvedilol (Coreg) 25 mg PO BID [facility] Last Admin: 08/18/19 21:53 Dose: 25 mg Documented by: Clonidine HCl (Catapres-Tts Patch) 0.1 mg TD Fr@2200 [facility] Last Admin: 08/16/19 21:50 Dose: 0.1 mg Documented by: Dextrose (D50w (25gm) Syringe) 50 ml IV Q30MIN PRN; Protocol PRN Reason: Hypoglycemia Furosemide (Lasix) 80 mg IV 0600,1800 [facility] Last Admin: 08/18/19 18:19 Dose: 80 mg Documented by: Guaifenesin (Robitussin) 200 mg PO Q4H PRN PRN Reason: Cough Last Admin: 08/17/19 07:39 Dose: 200 mg Documented by: Heparin Sodium (Porcine) (Heparin) 5,000 unit SUB-Q Q12HR [facility] Hydralazine HCl (Apresoline) 100 mg PO TID [facility] Last Admin: 08/18/19 21:53 Dose: 100 mg Documented by: Insulin Glargine (Lantus) 15 units SUB-Q QHS [facility] Last Admin: 08/18/19 21:58 Dose: Not Given Documented by: Insulin Human Lispro (Humalog) 0 unit SUB-Q ACHS [facility]; Protocol Last Admin: 08/18/19 21:50 Dose: Not Given Documented by: Isosorbide Dinitrate (Isordil Titradose) 40 mg PO BID [facility] Last Admin: 08/18/19 21:54 Dose: 40 mg Documented by: Metolazone (Zaroxolyn) 5 mg PO QDAY [facility] Last Admin: 08/18/19 11:12 Dose: 5 mg Documented by: Ondansetron HCl (Zofran) 4 mg IV Q8H PRN PRN Reason: Nausea And Vomiting Objective Vital Signs - 12hr 08/18/19 08/18/19 08/18/19 12:00 12:28 12:30 Temperature 98.5 F Pulse Rate 74 Pulse Rate [ Bilateral Throughout] Respiratory 18 Rate Respiratory Rate [Bilateral Throughout] Blood Pressure 158/85 163/94 163/94 Blood Pressure [Left] O2 Sat by Pulse 95 97 96 Oximetry 08/18/19 08/18/19 08/18/19 12:40 13:00 13:10 Temperature Pulse Rate 50 L 54 L 49 L Pulse Rate [ Bilateral Throughout] Respiratory 15 14 15 Rate Respiratory Rate [Bilateral Throughout] Blood Pressure 160/92 160/92 174/93 Blood Pressure [Left] O2 Sat by Pulse 100 94 97 Oximetry 08/18/19 08/18/19 08/18/19 13:20 14:28 15:00 Temperature 97.8 F Pulse Rate 53 L Pulse Rate [ 96 H Bilateral Throughout] Respiratory 15 Rate Respiratory 28 H Rate [Bilateral Throughout] Blood Pressure 174/93 Blood Pressure [Left] O2 Sat by Pulse 97 Oximetry 08/18/19 08/18/19 08/18/19 18:37 19:51 20:00 Temperature 98.2 F Pulse Rate 85 86 Pulse Rate [ 92 H Bilateral Throughout] Respiratory 18 20 Rate Respiratory 16 Rate [Bilateral Throughout] Blood Pressure 168/94 Blood Pressure 165/89 [Left] O2 Sat by Pulse 96 93 Oximetry 08/18/19 08/18/19 08/18/19 20:15 20:24 22:58 Temperature Pulse Rate 86 Pulse Rate [ Bilateral Throughout] Respiratory 22 Rate Respiratory Rate [Bilateral Throughout] Blood Pressure Blood Pressure [Left] O2 Sat by Pulse 96 Oximetry Constitutional: no acute distress, alert Eyes: non-icteric ENT: oropharynx moist Neck: supple, JVD Effort: normal Ascultation: Bilateral: clear (anteriorly) Cardiovascular: regular rate and rhythm (no mrg) Gastrointestinal: normoactive bowel sounds, soft, non-distended Integumentary: normal Extremities: no cyanosis, no edema, pink and warm Neurologic: normal mental status, non-focal exam, pupils equal and round Psychiatric: mood appropriate, affect normal CBC and BMP: 08/18/19 04:12 08/18/19 04:12 ABG, PT/INR, D-dimer: PT/INR, D-dimer PT 15.2 Sec. (12.2-14.9) H 08/16/19 04:49 INR 1.18 (0.87-1.13) H 08/16/19 04:49 Abnormal lab findings: Abnormal Labs 08/15/19 08/15/19 08/15/19 20:39 20:39 20:39 RBC 3.35 L Hgb 10.5 L Hct 30.7 L Seg Neuts % (Manual) 93.0 H Lymphocytes % (Manual) 4.0 L Lymphocytes # (Manual) 0.3 L PT INR Heparin Anti-Xa Level Carbon Dioxide 20 L BUN 40 H Creatinine 3.7 H Glucose 257 H POC Glucose Total Creatine Kinase 3076 H CK-MB (CK-2) 11.9 H Troponin T 0.129 H* 0.129 H* NT-Pro-B Natriuret Pep 21485 H Urine Creatinine 08/16/19 08/16/19 08/16/19 00:30 04:49 04:49 RBC Hgb 10.2 L Hct 30.0 L Seg Neuts % (Manual) Lymphocytes % (Manual) Lymphocytes # (Manual) PT INR Heparin Anti-Xa Level Carbon Dioxide BUN Creatinine Glucose POC Glucose Total Creatine Kinase 2784 H 2928 H CK-MB (CK-2) 18.0 H 20.5 H Troponin T 0.231 H* D 0.382 H* D NT-Pro-B Natriuret Pep Urine Creatinine 08/16/19 08/16/19 08/16/19 04:49 12:51 12:51 RBC Hgb Hct Seg Neuts % (Manual) Lymphocytes % (Manual) Lymphocytes # (Manual) PT 15.2 H INR 1.18 H Heparin Anti-Xa Level < 0.10 L Carbon Dioxide BUN Creatinine Glucose POC Glucose Total Creatine Kinase CK-MB (CK-2) Troponin T 0.488 H* D NT-Pro-B Natriuret Pep Urine Creatinine 08/16/19 08/16/19 08/16/19 15:30 18:02 21:37 RBC Hgb Hct Seg Neuts % (Manual) Lymphocytes % (Manual) Lymphocytes # (Manual) PT INR Heparin Anti-Xa Level Carbon Dioxide BUN Creatinine Glucose POC Glucose 242 H 237 H 189 H Total Creatine Kinase CK-MB (CK-2) Troponin T NT-Pro-B Natriuret Pep Urine Creatinine 08/16/19 08/16/19 08/17/19 21:40 21:40 05:45 RBC 3.09 L Hgb 9.5 L Hct 28.2 L Seg Neuts % (Manual) Lymphocytes % (Manual) Lymphocytes # (Manual) PT INR Heparin Anti-Xa Level < 0.10 L Carbon Dioxide BUN Creatinine Glucose POC Glucose Total Creatine Kinase CK-MB (CK-2) Troponin T 0.451 H* NT-Pro-B Natriuret Pep Urine Creatinine 08/17/19 08/17/19 08/17/19 05:45 08:08 11:56 RBC Hgb Hct Seg Neuts % (Manual) Lymphocytes % (Manual) Lymphocytes # (Manual) PT INR Heparin Anti-Xa Level Carbon Dioxide 19 L BUN 42 H Creatinine 4.0 H Glucose 151 H POC Glucose 145 H 180 H Total Creatine Kinase CK-MB (CK-2) Troponin T NT-Pro-B Natriuret Pep Urine Creatinine 08/17/19 08/17/19 08/18/19 15:36 18:18 00:17 RBC Hgb Hct Seg Neuts % (Manual) Lymphocytes % (Manual) Lymphocytes # (Manual) PT INR Heparin Anti-Xa Level Carbon Dioxide BUN Creatinine Glucose POC Glucose 168 H 212 H Total Creatine Kinase CK-MB (CK-2) Troponin T NT-Pro-B Natriuret Pep Urine Creatinine 77.8 H 08/18/19 08/18/19 08/18/19 04:12 04:12 04:12 RBC 3.13 L Hgb 9.6 L Hct 28.3 L Seg Neuts % (Manual) Lymphocytes % (Manual) Lymphocytes # (Manual) PT INR Heparin Anti-Xa Level 0.28 L Carbon Dioxide 18 L BUN 49 H Creatinine 3.9 H Glucose 210 H POC Glucose Total Creatine Kinase CK-MB (CK-2) Troponin T NT-Pro-B Natriuret Pep Urine Creatinine 08/18/19 08/18/19 08/18/19 07:59 12:07 17:31 RBC Hgb Hct Seg Neuts % (Manual) Lymphocytes % (Manual) Lymphocytes # (Manual) PT INR Heparin Anti-Xa Level Carbon Dioxide BUN Creatinine Glucose POC Glucose 228 H 200 H 200 H Total Creatine Kinase CK-MB (CK-2) Troponin T NT-Pro-B Natriuret Pep Urine Creatinine 08/18/19 20:55 RBC Hgb Hct Seg Neuts % (Manual) Lymphocytes % (Manual) Lymphocytes # (Manual) PT INR Heparin Anti-Xa Level Carbon Dioxide BUN Creatinine Glucose POC Glucose 153 H Total Creatine Kinase CK-MB (CK-2) Troponin T NT-Pro-B Natriuret Pep Urine Creatinine Chest x-ray: report reviewed, image reviewed
[2019-08-19] MEDS ORDERED: ALBUTEROL 2.5 MG/3 ML NEBU IH PRN (00:17)
[2019-08-19 04:03] LABS: Hematocrit 27.4 % (35.5-45.6); Hemoglobin 9.3 gm/dl (11.8-15.2); Mean Corpuscular HGB Conc 34 % (32-34); Mean Corpuscular Volume 90 fl (84-94); Platelet Count 230 K/mm3 (140-440); Red Blood Count 3.03 M/mm3 (3.65-5.03); Red Cell Distribution Width 13.6 % (13.2-15.2)
[2019-08-19 04:25] LABS: Calcium 9.2 mg/dL (8.4-10.2)
[2019-08-19] MEDS: FUROSEMIDE 40 MG/4 ML INJ IV SCH ×2 (05:57→18:45)
--- NOTE | 2019-08-19 08:26 | XRay Report ---
CHEST 1 VIEW 0726 hours INDICATION / CLINICAL INFORMATION: CHF. COMPARISON: 08/15/2019 FINDINGS: SUPPORT DEVICES: 2-lead pacemaker device remains in the same position. HEART / MEDIASTINUM: Slightly decreased cardiomegaly. LUNGS / PLEURA: Decreased pulmonary venous congestion. The lungs are generally clear. Trace left pleu ral effusion is suspected. No pneumothorax. ADDITIONAL FINDINGS: No significant additional findings. IMPRESSION: Mild improvement in CHF since the exam 4 days ago. Signer Name: Luca Eid Jr, MD Signed: 08/19/2019 8:22 AM Workstation Name: [id number]
--- NOTE | 2019-08-19 08:55 | Progress Note ---
Assessment and Plan 1. Acute kidney injury: Marilynn vasomotor EVANS superimposed on CKD stage 4. Renal US and Urine studies ordered. Baseline creatinine 3.5 last month. Renal function continue to decline. Monitor renal function. Renal prognosis is guarded to poor. Avoid nephrotoxic agents. Meds dosage based on GFR. Discussed with patient and (08/18) regarding the indications, benefits and risks involved in hemodialysis. They both voiced understanding and gave verbal consent. Hemodialysis: 08/19. 2. FEN: Volume overload, continue IV Lasix and PO Metolazone. Pt is not diuresing very well. UF with HD today. Metabolic acidosis, monitor. Monitor lytes. 3. Uncontrolled HTN: Was on Nicardipine drip. 4. Acute hypoxic respiratory failure: Continue supplemental O2. 5. NSTEMI type 2: Followed by Cards. 6. Acute on chronic HFpEF. 7. Normochromic anemia: POA. 8. Elevated CK: Improving. 9. DM type 2: Monitor. Examination: General appearance: well-developed, well-nourished, appears stated age, slight distress HEENT: ATNC, R[place], hearing intact, vision intact Neck: neck supple, trachea midline Respiratory: Rales Heart: regular, S1S2, no murmurs Gastrointestinal: Soft, normoactive bowel sounds, not tender, not distended Integumentary: no rash, warm and dry Neurologic: no focal deficit, no asterixis, alert and oriented x3 Ext: no edema Psychiatric: cooperative Subjective Date of service: 08/19/19 Principal diagnosis: Acute respiratory failure Interval history: Patient was seen and examined at the bedside. Doing ok. Objective - Vital Signs Vital signs: Vital Signs - 12hr 08/18/19 08/18/19 08/19/19 22:58 23:00 04:28 Temperature 97.9 F 99.2 F Pulse Rate 87 85 Respiratory 22 18 18 Rate Blood Pressure 160/88 168/94 O2 Sat by Pulse 93 90 Oximetry 08/19/19 07:55 Temperature 98.0 F Pulse Rate 85 Respiratory 20 Rate Blood Pressure 188/101 O2 Sat by Pulse 95 Oximetry - Lab 08/19/19 03:49 08/19/19 03:49 Most recent lab results Calcium 9.2 mg/dL (8.4-10.2) 08/19/19 03:49 Phosphorus 4.50 mg/dL (2.5-4.5) 08/18/19 04:12 Magnesium 1.90 mg/dL (1.7-2.3) 08/18/19 04:12 Urine Creatinine 77.8 mg/dL (0.1-20.0) H 08/17/19 18:18 Urine Sodium 66 mmol/L 08/17/19 18:18 Medications & Allergies - Medications Allergies/Adverse Reactions: Allergies No Known Allergies Allergy (Verified 08/15/19 18:58) Home Medications: Home Medications Medication Instructions Recorded Confirmed Last Taken Type Amlodipine Besylate [Norvasc] 10 mg PO QDAY 08/15/19 08/15/19 Unknown History Aspirin EC [Halfprin EC] 81 mg PO QDAY 08/15/19 08/15/19 Unknown History Atorvastatin Calcium [Lipitor] 80 mg PO QHS 08/15/19 08/15/19 Unknown History Clopidogrel [Plavix] 75 mg PO QDAY 08/15/19 08/15/19 Unknown History Furosemide [Lasix TAB] 80 mg PO QDAY 08/15/19 08/15/19 Unknown History Insulin Detemir [Levemir Flextouch] 15 unit SQ QHS 08/15/19 08/15/19 Unknown History Isosorbide Dinitrate [Isordil] 40 mg PO TID 08/15/19 08/15/19 Unknown History Potassium Chloride [K-Dur] 20 meq PO QDAY 08/15/19 08/15/19 Unknown History carvediloL [Coreg] 25 mg PO BID 08/15/19 08/15/19 Unknown History cloNIDine-TTS PATCH [Catapres-Tts 1 patch TD Q7D 08/15/19 08/15/19 Unknown History 0.1MG Patch] hydrALAZINE [Apresoline TAB] 100 mg PO TID 08/15/19 08/15/19 Unknown History Active Medications: Generic Name Dose Route Start Last Admin Trade Name Freq PRN Reason Stop Dose Admin Acetaminophen 650 mg 08/15/19 23:28 Tylenol PO Q4H PRN Headache Albuterol 2.5 mg 08/19/19 00:17 Proventil IH Q4HRT PRN Shortness Of Breath Albuterol 2.5 mg 08/19/19 08:00 Proventil IH TIDRT JOSHUA Amlodipine Besylate 10 mg 08/16/19 10:00 08/18/19 09:45 Amlodipine PO 10 mg QDAY [facility] Administration Aspirin 81 mg 08/16/19 10:00 08/18/19 09:45 Halfprin Ec PO 81 mg QDAY [facility] Administration Atorvastatin Calcium 80 mg 08/16/19 22:00 08/18/19 21:53 Lipitor PO 80 mg QHS [facility] Administration Carvedilol 25 mg 08/16/19 10:00 08/18/19 21:53 Coreg PO 25 mg BID [facility] Administration Clonidine HCl 0.1 mg 08/15/19 23:45 08/16/19 21:50 Catapres-Tts Patch TD 0.1 mg Fr@2200 [facility] Administration Dextrose 50 ml 08/18/19 09:27 D50w (25gm) Syringe IV Q30MIN PRN Hypoglycemia Protocol Furosemide 80 mg 08/17/19 18:00 08/19/19 05:57 Lasix IV 80 mg 0600,1800 [facility] Administration Guaifenesin 200 mg 08/15/19 23:29 08/17/19 07:39 Robitussin PO 200 mg Q4H PRN Administration Cough Heparin Sodium (Porcine) 5,000 unit 08/19/19 10:00 Heparin SUB-Q Q12HR [facility] Hydralazine HCl 100 mg 08/16/19 08:00 08/18/19 21:53 Apresoline PO 100 mg TID [facility] Administration Insulin Glargine 15 units 08/16/19 22:00 08/18/19 21:58 Lantus SUB-Q Not Given QHS [facility] Insulin Human Lispro 0 unit 08/18/19 11:30 08/18/19 21:50 Humalog SUB-Q [facility] Protocol Isosorbide Dinitrate 40 mg 08/18/19 10:00 08/18/19 21:54 Isordil Titradose PO 40 mg BID [facility] Administration Metolazone 5 mg 08/18/19 11:00 08/18/19 11:12 Zaroxolyn PO 5 mg QDAY [facility] Administration Ondansetron HCl 4 mg 08/15/19 23:28 Zofran IV Q8H PRN Nausea And Vomiting
[2019-08-19] MEDS: hydrALAZINE 100 MG TAB PO SCH ×3 (09:13→20:34)
[2019-08-19] MEDS: INSULIN LISPRO 100 UNIT/ML SUB-Q SCH ×4 (09:13→22:15)
[2019-08-19] MEDS: ALBUTEROL 2.5 MG/3 ML NEBU IH SCH ×3 (09:30→20:10)
[2019-08-19] MEDS ORDERED: SODIUM CHLORIDE 0.9% 100 ML IV PRN ×2 (09:56→10:07)
[2019-08-19] MEDS: ASPIRIN EC 81 MG TAB PO SCH (10:30)
[2019-08-19] MEDS: carvediloL 25 MG TAB PO SCH ×2 (10:30→22:16)
[2019-08-19] MEDS: metOLazone 5 MG TAB PO SCH (10:30)
[2019-08-19] MEDS: amLODIPine 10 MG TAB PO SCH (10:31)
[2019-08-19] MEDS: ISOSORBIDE DINITRATE 20 MG TAB PO SCH ×2 (10:31→22:16)
[2019-08-19] MEDS: HEPARIN 5,000 UNIT/1 ML VIAL SUB-Q SCH ×2 (10:32→22:16)
--- NOTE | 2019-08-19 10:42 | Progress Note ---
Assessment and Plan Cardiac status is improving. He is awaiting the initiation of dialysis. Will defer ischemic evaluation for now - after he is medically stabilized, will schedule [facility] to re-evaluate known multivessel disease. The patient has been seen in conjunction with Dr. Lindsey, who agrees with the assessment and plan. - Patient Problems (1) NSTEMI (non-ST elevated myocardial infarction) Current Visit: Yes Status: Acute (2) Acute on chronic HFrEF (heart failure with reduced ejection fraction) Current Visit: Yes Status: Acute (3) Respiratory distress Current Visit: Yes Status: Acute (4) AICD (automatic cardioverter/defibrillator) present Current Visit: Yes Status: Chronic (5) CAD (coronary artery disease) Current Visit: Yes Status: Chronic (6) Stented coronary artery Current Visit: Yes Status: Chronic (7) CKD (chronic kidney disease) Current Visit: Yes Status: Chronic (8) Hypertension Current Visit: Yes Status: Chronic (9) Diabetes mellitus Current Visit: Yes Status: Chronic (10) Cardiomyopathy Current Visit: Yes Status: Chronic Subjective Date of service: 08/19/19 Principal diagnosis: Acute respiratory failure Interval history: The patient is lying in bed in NAD. Denies chest pain and other cardiac complaints. Dialysis to be initiated. Telemetry reviewed - SR with PVCs in 80s. Objective Last Vital Signs Temp 98.0 F 08/19/19 07:55 Pulse 84 08/19/19 10:31 Resp 18 08/19/19 10:29 BP 180/100 08/19/19 10:31 Pulse Ox 3 L 08/19/19 10:29 - Physical Examination General: No Apparent Distress, Other (mild respiratory distress) HEENT: Positive: PERRL Neck: Positive: neck supple, trachea midline Cardiac: Positive: Reg Rate and Rhythm Lungs: Positive: Decreased Breath Sounds Neuro: Positive: Grossly Intact Abdomen: Positive: Unremarkable /Rectal: Other (deferred) Skin: Positive: Clear Musculoskeletal: Normal Range of Motion Extremities: Present: normal - Labs and Meds CBC 08/19/19 Range/Units 03:49 WBC 5.7 (4.5-11.0) K/mm3 RBC 3.03 L (3.65-5.03) M/mm3 Hgb 9.3 L (11.8-15.2) gm/dl Hct 27.4 L (35.5-45.6) % Plt Count 230 (140-440) K/mm3 Comprehensive Metabolic Panel 08/19/19 Range/Units 03:49 Sodium 140 (137-145) mmol/L Potassium 3.6 (3.6-5.0) mmol/L Chloride 104.5 (98-107) mmol/L Carbon Dioxide 23 (22-30) mmol/L BUN 55 H (9-20) mg/dL Creatinine 4.2 H (0.8-1.5) mg/dL Glucose 169 H (75-100) mg/dL Calcium 9.2 (8.4-10.2) mg/dL - Imaging and Cardiology Echo: report reviewed (08/16/2019: EF 15-20%, mod LVH, LV severely dilated, LA severely dilated, small pericardial effusion, small pleural effusion) Cardiac cath: report reviewed (2016: 1. Euvolemic state with right atrial pressure 3-5, pulmonary capillary) - Telemetry EKG Rhythm: Sinus Rhythm - EKG Ventricular dysrhythmias: ventricular premature com
[2019-08-19 11:40] LABS: Hepatitis B Surface Antigen Non-Reactive (Negative); Hepatitis C Virus Antibody Non-Reactive (NonReactive)
--- NOTE | 2019-08-19 11:44 | Progress Note ---
Assessment and Plan 64 y/o male with hypertensive emergency resulting in acute respiratory failure. Wean FiO2 to off for sats >88% BP control Diuresis per renal and cards Will see PRN Subjective Date of service: 08/19/19 Principal diagnosis: Acute respiratory failure Interval history: Sats documented at 98% on 3 liters. CXR still shows pulmonary edema but improve d compared to admission. Objective Vital Signs - 12hr 08/19/19 08/19/19 08/19/19 04:28 07:55 09:33 Temperature 99.2 F 98.0 F Pulse Rate 85 85 Pulse Rate [ 100 H Bilateral Throughout] Respiratory 18 20 Rate Respiratory 18 Rate [Bilateral Throughout] Blood Pressure 168/94 188/101 Blood Pressure [Left] O2 Sat by Pulse 90 95 Oximetry 08/19/19 08/19/19 08/19/19 09:34 10:29 10:30 Temperature Pulse Rate 82 84 Pulse Rate [ Bilateral Throughout] Respiratory 18 Rate Respiratory Rate [Bilateral Throughout] Blood Pressure 180/100 Blood Pressure 180/100 [Left] O2 Sat by Pulse 98 3 L Oximetry 08/19/19 10:31 Temperature Pulse Rate 84 Pulse Rate [ Bilateral Throughout] Respiratory Rate Respiratory Rate [Bilateral Throughout] Blood Pressure 180/100 Blood Pressure [Left] O2 Sat by Pulse Oximetry Constitutional: no acute distress, alert Eyes: non-icteric ENT: oropharynx moist Neck: supple, JVD Effort: normal Ascultation: Bilateral: clear (anteriorly) Cardiovascular: regular rate and rhythm (no mrg) Gastrointestinal: normoactive bowel sounds, soft, non-distended Integumentary: normal Extremities: no cyanosis, no edema, pink and warm Neurologic: normal mental status, non-focal exam, pupils equal and round Psychiatric: mood appropriate, affect normal CBC and BMP: 08/19/19 03:49 08/19/19 03:49 ABG, PT/INR, D-dimer: PT/INR, D-dimer PT 15.2 Sec. (12.2-14.9) H 08/16/19 04:49 INR 1.18 (0.87-1.13) H 08/16/19 04:49 Abnormal lab findings: Abnormal Labs 08/15/19 08/15/19 08/15/19 20:39 20:39 20:39 RBC 3.35 L Hgb 10.5 L Hct 30.7 L Seg Neuts % (Manual) 93.0 H Lymphocytes % (Manual) 4.0 L Lymphocytes # (Manual) 0.3 L PT INR Heparin Anti-Xa Level Carbon Dioxide 20 L BUN 40 H Creatinine 3.7 H Glucose 257 H POC Glucose Total Creatine Kinase 3076 H CK-MB (CK-2) 11.9 H Troponin T 0.129 H* 0.129 H* NT-Pro-B Natriuret Pep 12038 H Urine Creatinine 08/16/19 08/16/19 08/16/19 00:30 04:49 04:49 RBC Hgb 10.2 L Hct 30.0 L Seg Neuts % (Manual) Lymphocytes % (Manual) Lymphocytes # (Manual) PT INR Heparin Anti-Xa Level Carbon Dioxide BUN Creatinine Glucose POC Glucose Total Creatine Kinase 2784 H 2928 H CK-MB (CK-2) 18.0 H 20.5 H Troponin T 0.231 H* D 0.382 H* D NT-Pro-B Natriuret Pep Urine Creatinine 08/16/19 08/16/19 08/16/19 04:49 12:51 12:51 RBC Hgb Hct Seg Neuts % (Manual) Lymphocytes % (Manual) Lymphocytes # (Manual) PT 15.2 H INR 1.18 H Heparin Anti-Xa Level < 0.10 L Carbon Dioxide BUN Creatinine Glucose POC Glucose Total Creatine Kinase CK-MB (CK-2) Troponin T 0.488 H* D NT-Pro-B Natriuret Pep Urine Creatinine 08/16/19 08/16/19 08/16/19 15:30 18:02 21:37 RBC Hgb Hct Seg Neuts % (Manual) Lymphocytes % (Manual) Lymphocytes # (Manual) PT INR Heparin Anti-Xa Level Carbon Dioxide BUN Creatinine Glucose POC Glucose 242 H 237 H 189 H Total Creatine Kinase CK-MB (CK-2) Troponin T NT-Pro-B Natriuret Pep Urine Creatinine 08/16/19 08/16/19 08/17/19 21:40 21:40 05:45 RBC 3.09 L Hgb 9.5 L Hct 28.2 L Seg Neuts % (Manual) Lymphocytes % (Manual) Lymphocytes # (Manual) PT INR Heparin Anti-Xa Level < 0.10 L Carbon Dioxide BUN Creatinine Glucose POC Glucose Total Creatine Kinase CK-MB (CK-2) Troponin T 0.451 H* NT-Pro-B Natriuret Pep Urine Creatinine 08/17/19 08/17/19 08/17/19 05:45 08:08 11:56 RBC Hgb Hct Seg Neuts % (Manual) Lymphocytes % (Manual) Lymphocytes # (Manual) PT INR Heparin Anti-Xa Level Carbon Dioxide 19 L BUN 42 H Creatinine 4.0 H Glucose 151 H POC Glucose 145 H 180 H Total Creatine Kinase CK-MB (CK-2) Troponin T NT-Pro-B Natriuret Pep Urine Creatinine 08/17/19 08/17/19 08/18/19 15:36 18:18 00:17 RBC Hgb Hct Seg Neuts % (Manual) Lymphocytes % (Manual) Lymphocytes # (Manual) PT INR Heparin Anti-Xa Level Carbon Dioxide BUN Creatinine Glucose POC Glucose 168 H 212 H Total Creatine Kinase CK-MB (CK-2) Troponin T NT-Pro-B Natriuret Pep Urine Creatinine 77.8 H 08/18/19 08/18/19 08/18/19 04:12 04:12 04:12 RBC 3.13 L Hgb 9.6 L Hct 28.3 L Seg Neuts % (Manual) Lymphocytes % (Manual) Lymphocytes # (Manual) PT INR Heparin Anti-Xa Level 0.28 L Carbon Dioxide 18 L BUN 49 H Creatinine 3.9 H Glucose 210 H POC Glucose Total Creatine Kinase CK-MB (CK-2) Troponin T NT-Pro-B Natriuret Pep Urine Creatinine 08/18/19 08/18/19 08/18/19 07:59 12:07 17:31 RBC Hgb Hct Seg Neuts % (Manual) Lymphocytes % (Manual) Lymphocytes # (Manual) PT INR Heparin Anti-Xa Level Carbon Dioxide BUN Creatinine Glucose POC Glucose 228 H 200 H 200 H Total Creatine Kinase CK-MB (CK-2) Troponin T NT-Pro-B Natriuret Pep Urine Creatinine 08/18/19 08/19/19 08/19/19 20:55 03:49 03:49 RBC 3.03 L Hgb 9.3 L Hct 27.4 L Seg Neuts % (Manual) Lymphocytes % (Manual) Lymphocytes # (Manual) PT INR Heparin Anti-Xa Level Carbon Dioxide BUN 55 H Creatinine 4.2 H Glucose 169 H POC Glucose 153 H Total Creatine Kinase 432 H CK-MB (CK-2) Troponin T NT-Pro-B Natriuret Pep Urine Creatinine 12/24/19 08:03 RBC Hgb Hct Seg Neuts % (Manual) Lymphocytes % (Manual) Lymphocytes # (Manual) PT INR Heparin Anti-Xa Level Carbon Dioxide BUN Creatinine Glucose POC Glucose 185 H Total Creatine Kinase CK-MB (CK-2) Troponin T NT-Pro-B Natriuret Pep Urine Creatinine
[2019-08-19] MEDS ORDERED: MIDAZOLAM 2 MG/2 ML INJ ONE (13:39)
[2019-08-19] MEDS ORDERED: LIDOCAINE 1%/EPINEPHRINE 1:100,000 VIAL (20 ML) INFILTRATI ONE (13:40)
[2019-08-19] MEDS ORDERED: HEPARIN/NS 5000 UNIT/500ML 500 ML IR ONE (13:40)
[2019-08-19] MEDS ORDERED: SODIUM CHLORIDE 0.9% 250ML 250 ML ONE (13:40)
[2019-08-19] MEDS: fentaNYL 100 MCG/2 ML INJ ONE ×2 (14:37→14:48)
[2019-08-19] MEDS: HEPARIN 10,000 UNITS/10 ML VIAL ONE ×2 (14:51→14:52)
--- NOTE | 2019-08-19 15:14 | Post Operative Note ---
Date of procedure: 08/19/19 Pre-op diagnosis: ESRD Post-op diagnosis: same Procedure: 1. Right IJ Permcath Insertion 2. Monitored Conscious Sedation for 15 minutes Anesthesia: MAC, local Surgeon: SWAPNIL WALTON Estimated blood loss: minimal Condition: stable Disposition: floor
--- NOTE | 2019-08-19 15:53 | Operative Report ---
STAFF SURGEON: Dr. Renato Mosqueda. PREOPERATIVE DIAGNOSES: 1. Right IJ PermCath insertion. 2. Monitored conscious sedation for 15 minutes. COMPLICATIONS: None. ESTIMATED BLOOD LOSS: Less than 10 mL. ANESTHESIA: Local MAC. INDICATIONS FOR PROCEDURE: This is a 64-year-old gentleman in need of permanent dialysis access and therefore vascular consultation was obtained for intervention. The patient was explained the risks, benefits and alternatives of procedure, expressed understanding and wished to proceed. DESCRIPTION OF PROCEDURE: After appropriate consent was obtained, the patient was brought back to the label tacker, placed on table in supine position. The right neck and chest were prepped and draped in usual sterile fashion with ChloraPrep. Appropriate timeout was performed, indicating correct patient, procedure and site of procedure. We then began the intervention by obtaining percutaneous access of the right internal jugular vein using micropuncture technique under ultrasound guidance. Once we obtained access, needle was exchanged for a micropuncture sheath. We then removed the dilator and microwire and placed a stiff J wire into the inferior vena cava. The sheath was removed. A stab incision was made on the anterior chest wall. A subcutaneous tunnel was made, bringing through a 23 cm straight PermCath. The access site was thoroughly dilated appropriately. Then, sheath and dilator were then placed over the wire into the SVC. The dilator and wire were removed. Catheter was placed through the peel-away sheath with the tip of the catheter at the SVC right atrial junction. Both lumens sahil blood appropriately, were flushed with heparinized saline. Appropriate amount of heparin was placed in each port. We then proceeded to close the access site with a deep subcutaneous layer, closed with 3-0 Vicryl and the skin was approximated with 3-0 nylon. The catheter exit site was sutured in place with 3-0 nylon. Appropriate dressing was placed. The patient tolerated the procedure well, emerged from the conscious sedation and sent to recovery in stable condition. JOB# [id number] BENIGNO/CHUCHO
--- NOTE | 2019-08-19 17:40 | Progress Note ---
Assessment and Plan Patient is a 64 yo man with a history of hypertension and CHF (first visit in our EMR) who [facility] with severe SOB requiring Bipap, pulse ox was only 83%. * pCXR Impression: Cardiomegaly and interstitial pulmonary edema -ARF, vasomotor nephropathy: treat the CHF, consulted Nephrology, input noted Marilynn vasomotor EVANS superimposed on CKD stage 4. Renal US and Urine studies ordered. Baseline creatinine 3.5 last month. Renal function continue to decline. Monitor renal function. Renal prognosis is guarded to poor. Avoid nephrotoxic agents. Meds dosage based on GFR. Patient and family gave consent for hemodialysis. Vas-Cath to be placed -Acute on chronic decompensated systolic heart failure: treat with iv lasix, consult Cardiology, ECHO reviewed, EF 15-20% -Acute hypoxic respiratory failure: wean off bipap, on O2 via nasal canula, consulted CCM/Pulm, not sure why no evaluation -NSTEMI; on heparin drip and off NTG drip, d/w Cardiology ok to d/c heparin drip and move to tele, needs ischemic evaluation but Cr is 3.9 -Malignant Hypertension: off NTG drip, was switched to Cardene iv drip and both have been off since Sunday -Uncontrolled type 2 DM: add ssi, monitor blood glucose closely and make adjustment accordingly -SIRs, noninfectious with organ dysfunction, poa: continue to treat the CHF and ARF -Anemia: check FOBT pending (not sure why not collected), monitor CBC closely, repeat in am -DVT ppx: d/c heparin drip and start sq heparin Disposition: continue inpatient care, transfer to telemetry. full code Subjective Date of service: 08/19/19 Principal diagnosis: Acute respiratory failure Interval history: Interval history: Patient was seen and examined. Follow-up on current diagnosis of CHF. No overnight events reported to me. Patient denies any nausea/vomiting or severe h eadaches. Imaging, nursing note, chart, labs and old chart reviewed. Discussed with patient. He still has SOB but improved, denies chest pains. Transferred to telemetry yesterday Objective - Constitutional Vitals: Vital Signs - 12hr 08/19/19 08/19/19 08/19/19 07:55 08:00 09:33 Temperature 98.0 F Pulse Rate 85 Pulse Rate [ 100 H Bilateral Throughout] Respiratory 20 20 Rate Respiratory 18 Rate [Bilateral Throughout] Blood Pressure 188/101 Blood Pressure [Left] O2 Sat by Pulse 95 Oximetry 08/19/19 08/19/19 08/19/19 09:34 10:00 10:29 Temperature Pulse Rate 82 82 Pulse Rate [ Bilateral Throughout] Respiratory 18 Rate Respiratory Rate [Bilateral Throughout] Blood Pressure Blood Pressure 180/100 [Left] O2 Sat by Pulse 98 3 L Oximetry 08/19/19 08/19/19 10:30 10:31 Temperature Pulse Rate 84 84 Pulse Rate [ Bilateral Throughout] Respiratory Rate Respiratory Rate [Bilateral Throughout] Blood Pressure 180/100 180/100 Blood Pressure [Left] O2 Sat by Pulse Oximetry General appearance: Present: no acute distress, well-nourished - EENT Eyes: PERRL, EOM intact ENT: hearing intact, clear oral mucosa Ears: bilateral: normal - Neck Neck: supple, normal ROM - Respiratory Respiratory effort: normal Respiratory: bilateral: CTA - Breasts Breasts: normal - Cardiovascular Heart rate: 70 Rhythm: regular Heart Sounds: Present: S1 & S2. Absent: gallop, rub Extremities: pulses intact, No edema, normal color, Full ROM - Gastrointestinal General gastrointestinal: Present: soft, non-tender, non-distended, normal bowel sounds - Genitourinary Male genitourinary: normal - Integumentary Integumentary: clear, warm, dry - Musculoskeletal Musculoskeletal: 1, strength equal bilaterally - Neurologic Neurologic: moves all extremities - Psychiatric Psychiatric: memory intact, appropriate mood/affect, intact judgment & insight - Labs CBC & Chem 7: 08/19/19 03:49 08/19/19 03:49 Labs: Abnormal lab results 08/18/19 08/19/19 08/19/19 Range/Units 20:55 03:49 03:49 RBC 3.03 L (3.65-5.03) M/mm3 Hgb 9.3 L (11.8-15.2) gm/dl Hct 27.4 L (35.5-45.6) % BUN 55 H (9-20) mg/dL Creatinine 4.2 H (0.8-1.5) mg/dL Glucose 169 H (75-100) mg/dL POC Glucose 153 H (70-105) Total Creatine Kinase 432 H (55-170) units/L 08/19/19 08/19/19 Range/Units 08:03 11:40 RBC (3.65-5.03) M/mm3 Hgb (11.8-15.2) gm/dl Hct (35.5-45.6) % BUN (9-20) mg/dL Creatinine (0.8-1.5) mg/dL Glucose (75-100) mg/dL POC Glucose 185 H 245 H (70-105) Total Creatine Kinase (55-170) units/L
[2019-08-19] MEDS: INSULIN GLARGINE 100 UNITS/ML SUB-Q SCH (22:15)
[2019-08-20] MEDS: FUROSEMIDE 40 MG/4 ML INJ IV SCH ×2 (06:01→17:08)
[2019-08-20] MEDS: hydrALAZINE 100 MG TAB PO SCH ×3 (07:53→22:24)
[2019-08-20] MEDS: ALBUTEROL 2.5 MG/3 ML NEBU IH SCH ×3 (08:16→19:55)
[2019-08-20] MEDS: INSULIN LISPRO 100 UNIT/ML SUB-Q SCH ×4 (08:16→22:27)
[2019-08-20] MEDS: amLODIPine 10 MG TAB PO SCH (09:38)
[2019-08-20] MEDS: ISOSORBIDE DINITRATE 20 MG TAB PO SCH ×2 (09:38→22:23)
[2019-08-20] MEDS: metOLazone 5 MG TAB PO SCH (09:38)
[2019-08-20] MEDS: carvediloL 25 MG TAB PO SCH ×2 (09:38→22:24)
[2019-08-20] MEDS: HEPARIN 5,000 UNIT/1 ML VIAL SUB-Q SCH ×2 (09:39→22:24)
[2019-08-20] MEDS: ASPIRIN EC 81 MG TAB PO SCH (09:39)
[2019-08-20] MEDS ORDERED: SODIUM CHLORIDE 0.9% 100 ML IV PRN (10:11)
[2019-08-20] MEDS ORDERED: EPOETIN ALFA 10,000 UNIT/1 ML INJ SUB-Q PRN (10:12)
--- NOTE | 2019-08-20 11:50 | Progress Note ---
Assessment and Plan 1. ESRD: CKD has progressed to ESRD. Renal US negative for hydro. Baseline creatinine 3.5 last month. Renal prognosis is guarded to poor. Avoid nephrotoxic agents. Meds dosage based on GFR. Patient was started on hemodialysis due to worsening renal function, volume overload and uncontrolled HTN. Hemodialysis: 08/19, 08/20. 2. FEN: Volume overload, UF with HD Continue IV Lasix and PO Metolazone. Metabolic acidosis, improved. Monitor lytes. 3. Uncontrolled HTN: BP is better. 4. Acute hypoxic respiratory failure: Continue supplemental O2. 5. NSTEMI type 2: Followed by Cards. 6. Acute on chronic HFpEF. 7. Normochromic anemia: POA. 8. Elevated CK: Improving. 9. DM type 2: Monitor. Examination: General appearance: well-developed, well-nourished, appears stated age, no distress HEENT: ATNC, R[place], hearing intact, vision intact Neck: neck supple, trachea midline Respiratory: ctab Heart: regular, S1S2, no murmurs Gastrointestinal: Soft, normoactive bowel sounds, not tender, not distended Integumentary: no rash, warm and dry Neurologic: no focal deficit, no asterixis, alert and oriented x3 Ext: no edema Psychiatric: cooperative Hemodialysis access: R IJ tunnel catheter Subjective Date of service: 08/20/19 Principal diagnosis: Acute respiratory failure Interval history: Patient was seen and examined at the bedside. Doing ok. Objective - Vital Signs Vital signs: Vital Signs - 12hr 08/20/19 08/20/19 08/20/19 04:00 04:04 07:26 Temperature 98.7 F 99.2 F Pulse Rate 66 65 Pulse Rate [ Bilateral Throughout] Respiratory 20 18 Rate Respiratory Rate [Bilateral Throughout] Blood Pressure 145/78 164/91 O2 Sat by Pulse 98 Oximetry 08/20/19 08/20/19 08/20/19 08:17 08:18 10:00 Temperature Pulse Rate 68 Pulse Rate [ 83 Bilateral Throughout] Respiratory Rate Respiratory 20 Rate [Bilateral Throughout] Blood Pressure O2 Sat by Pulse 98 Oximetry - Lab 08/19/19 03:49 08/19/19 03:49 Most recent lab results Calcium 9.2 mg/dL (8.4-10.2) 08/19/19 03:49 Phosphorus 4.50 mg/dL (2.5-4.5) 08/18/19 04:12 Magnesium 1.90 mg/dL (1.7-2.3) 08/18/19 04:12 Urine Creatinine 77.8 mg/dL (0.1-20.0) H 08/17/19 18:18 Urine Sodium 66 mmol/L 08/17/19 18:18 Medications & Allergies - Medications Allergies/Adverse Reactions: Allergies No Known Allergies Allergy (Verified 08/15/19 18:58) Home Medications: Home Medications Medication Instructions Recorded Confirmed Last Taken Type Amlodipine Besylate [Norvasc] 10 mg PO QDAY 08/15/19 08/15/19 Unknown History Aspirin EC [Halfprin EC] 81 mg PO QDAY 08/15/19 08/15/19 Unknown History Atorvastatin Calcium [Lipitor] 80 mg PO QHS 08/15/19 08/15/19 Unknown History Clopidogrel [Plavix] 75 mg PO QDAY 08/15/19 08/15/19 Unknown History Furosemide [Lasix TAB] 80 mg PO QDAY 08/15/19 08/15/19 Unknown History Insulin Detemir [Levemir Flextouch] 15 unit SQ QHS 08/15/19 08/15/19 Unknown History Isosorbide Dinitrate [Isordil] 40 mg PO TID 08/15/19 08/15/19 Unknown History Potassium Chloride [K-Dur] 20 meq PO QDAY 08/15/19 08/15/19 Unknown History carvediloL [Coreg] 25 mg PO BID 08/15/19 08/15/19 Unknown History cloNIDine-TTS PATCH [Catapres-Tts 1 patch TD Q7D 08/15/19 08/15/19 Unknown History 0.1MG Patch] hydrALAZINE [Apresoline TAB] 100 mg PO TID 08/15/19 08/15/19 Unknown History Active Medications: Generic Name Dose Route Start Last Admin Trade Name Freq PRN Reason Stop Dose Admin Acetaminophen 650 mg 08/15/19 23:28 08/20/19 07:53 Tylenol PO 650 mg Q4H PRN Administration Headache Albuterol 2.5 mg 08/19/19 00:17 Proventil IH Q4HRT PRN Shortness Of Breath Albuterol 2.5 mg 08/19/19 08:00 08/20/19 08:16 Proventil IH 2.5 mg TIDRT JOSHUA Administration Amlodipine Besylate 10 mg 08/16/19 10:00 08/20/19 09:38 Amlodipine PO 10 mg QDAY JOSHUA Administration Aspirin 81 mg 08/16/19 10:00 08/20/19 09:39 Halfprin Ec PO 81 mg QDAY JOSHUA Administration Atorvastatin Calcium 80 mg 08/16/19 22:00 08/19/19 22:16 Lipitor PO 80 mg QHS JOSHUA Administration Carvedilol 25 mg 08/16/19 10:00 08/20/19 09:38 Coreg PO 25 mg BID JOSHUA Administration Clonidine HCl 0.1 mg 08/15/19 23:45 08/16/19 21:50 Catapres-Tts Patch TD 0.1 mg Fr@2200 JOSHUA Administration Dextrose 50 ml 08/18/19 09:27 D50w (25gm) Syringe IV Q30MIN PRN Hypoglycemia Protocol Epoetin Db 10,000 unit 08/20/19 10:12 Procrit SUB-Q NINFA PRN hemodialysis Furosemide 80 mg 08/17/19 18:00 08/20/19 06:01 Lasix IV 80 mg 0600,1800 JOSHUA Administration Guaifenesin 200 mg 08/15/19 23:29 08/17/19 07:39 Robitussin PO 200 mg Q4H PRN Administration Cough Heparin Sodium (Porcine) 5,000 unit 08/19/19 10:00 08/20/19 09:39 Heparin SUB-Q 5,000 unit Q12HR JOSHUA Administration Hydralazine HCl 100 mg 08/16/19 08:00 08/20/19 07:53 Apresoline PO 100 mg TID JOSHUA Administration Sodium Chloride 100 mls @ 999 mls/hr 08/19/19 09:56 Nacl 0.9% IV NINFA PRN Hypotension Sodium Chloride 100 mls @ 999 mls/hr 08/19/19 10:07 Nacl 0.9% IV NINFA PRN Hypotension Sodium Chloride 100 mls @ 999 mls/hr 08/20/19 10:11 Nacl 0.9% IV NINFA PRN Hypotension Insulin Glargine 15 units 08/16/19 22:00 08/19/19 22:15 Lantus SUB-Q 15 units QHS JOSHUA Administration Insulin Human Lispro 0 unit 08/18/19 11:30 08/20/19 08:16 Humalog SUB-Q Not Given ACHS [facility] Protocol Isosorbide Dinitrate 40 mg 08/18/19 10:00 08/20/19 09:38 Isordil Titradose PO 40 mg BID JOSHUA Administration Metolazone 5 mg 08/18/19 11:00 08/20/19 09:38 Zaroxolyn PO 5 mg QDAY [facility] Administration Ondansetron HCl 4 mg 08/15/19 23:28 Zofran IV Q8H PRN Nausea And Vomiting
--- NOTE | 2019-08-20 11:56 | Progress Note ---
Assessment and Plan Patient is a 64 yo man with a history of hypertension and CHF (first visit in our EMR) who presented to [facility] ED with severe SOB requiring Bipap, pulse ox was only 83%. * pCXR Impression: Cardiomegaly and interstitial pulmonary edema -ARF, vasomotor nephropathy: treat the CHF, consulted Nephrology, input noted Marilynn vasomotor EVANS superimposed on CKD stage 4. Renal US and Urine studies ordered. Baseline creatinine 3.5 last month. Renal function continue to decline. Monitor renal function. Renal prognosis is guarded to poor. Avoid nephrotoxic agents. Meds dosage based on GFR. Patient and family gave consent for hemodialysis. Vas-Cath placed yesterday -Acute on chronic decompensated systolic heart failure: treat with iv lasix, consult Cardiology, ECHO reviewed, EF 15-20% -Acute hypoxic respiratory failure: wean off bipap, on O2 via nasal canula, cons ulted CCM/Pulm, not sure why no evaluation -NSTEMI; on heparin drip and off NTG drip, d/w Cardiology ok to d/c heparin drip and move to tele, needs ischemic evaluation but Cr is 3.9 -Malignant Hypertension: off NTG drip, was switched to Cardene iv drip and both have been off since Sunday -Uncontrolled type 2 DM: add ssi, monitor blood glucose closely and make adjustment accordingly -SIRs, noninfectious with organ dysfunction, poa: continue to treat the CHF and ARF -Anemia: check FOBT pending (not sure why not collected), monitor CBC closely, repeat in am -DVT ppx: d/c heparin drip and start sq heparin Disposition: continue inpatient care, transfer to telemetry. May discharge today or tomorrow after patient is cleared from nephrology standpoint Patient may need hemodialysis chair placement full code Subjective Date of service: 08/20/19 Principal diagnosis: Acute respiratory failure Interval history: Interval history: Patient was seen and examined. Follow-up on current diagnosis of CHF. No overnight events reported to me. Patient denies any nausea/vomiting or severe headaches. Imaging, nursing note, chart, labs and old chart reviewed. Discussed with patient. He still has SOB but improved, denies chest pains. Transferred to telemetry on 08/18/2019 Objective - Constitutional Vitals: Vital Signs - 12hr 08/20/19 08/20/19 08/20/19 04:00 04:04 07:26 Temperature 98.7 F 99.2 F Pulse Rate 66 65 Pulse Rate [ Bilateral Throughout] Respiratory 20 18 Rate Respiratory Rate [Bilateral Throughout] Blood Pressure 145/78 164/91 O2 Sat by Pulse 98 Oximetry 08/20/19 08/20/19 08/20/19 08:17 08:18 10:00 Temperature Pulse Rate 68 Pulse Rate [ 83 Bilateral Throughout] Respiratory Rate Respiratory 20 Rate [Bilateral Throughout] Blood Pressure O2 Sat by Pulse 98 Oximetry General appearance: Present: no acute distress, well-nourished - EENT Eyes: PERRL, EOM intact ENT: hearing intact, clear oral mucosa Ears: bilateral: normal - Neck Neck: supple, normal ROM - Respiratory Respiratory effort: normal Respiratory: bilateral: CTA - Breasts Breasts: normal - Cardiovascular Rhythm: regular Heart Sounds: Present: S1 & S2. Absent: gallop, rub Extremities: pulses intact, No edema, normal color, Full ROM - Gastrointestinal General gastrointestinal: Present: soft, non-tender, non-distended, normal bowel sounds - Genitourinary Male genitourinary: normal - Integumentary Integumentary: clear, warm, dry - Musculoskeletal Musculoskeletal: 1, strength equal bilaterally - Neurologic Neurologic: moves all extremities - Psychiatric Psychiatric: memory intact, appropriate mood/affect, intact judgment & insight - Labs CBC & Chem 7: 08/19/19 03:49 08/19/19 03:49 Labs: Abnormal lab results 08/19/19 08/19/19 08/20/19 Range/Units 11:40 22:17 07:35 POC Glucose 245 H 209 H 134 H (70-105)
[2019-08-20] MEDS ORDERED: SODIUM CHLORIDE*PRIMING MACHINE ONLY FOR DIALYSIS MC ONE (12:19)
--- NOTE | 2019-08-20 14:26 | Progress Note ---
Assessment and Plan Cardiac status is improving. He is receiving dialysis. 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 Subjective Date of service: 08/20/19 Principal diagnosis: Acute respiratory failure Interval history: Patient receiving dialysis.No cardiac symptoms. Objective Vital Signs Temp Pulse Pulse Resp Resp BP BP 08/20/19 13:30 61 155/88 08/20/19 13:15 59 L 154/85 08/20/19 13:00 59 L 162/90 08/20/19 12:45 62 159/86 08/20/19 12:30 61 149/88 08/20/19 12:15 61 150/88 08/20/19 12:00 60 142/89 08/20/19 11:45 62 139/85 08/20/19 11:35 97.2 F L 63 20 142/85 08/20/19 10:00 68 08/20/19 08:18 83 20 08/20/19 08:17 08/20/19 07:26 99.2 F 18 164/91 08/20/19 04:04 98.7 F 65 20 145/78 08/20/19 04:00 66 08/19/19 23:31 98.7 F 78 20 148/80 08/19/19 22:16 82 147/77 08/19/19 22:00 73 08/19/19 20:14 08/19/19 20:12 80 20 08/19/19 19:48 99.7 F H 82 20 147/77 08/19/19 18:50 80 20 163/87 08/19/19 17:35 98.2 F 74 20 169/88 08/19/19 17:30 74 170/97 08/19/19 17:15 61 178/91 08/19/19 17:00 61 175/93 08/19/19 16:45 63 162/71 08/19/19 16:30 63 163/72 08/19/19 16:15 66 172/85 08/19/19 16:00 60 170/69 08/19/19 15:45 63 166/89 08/19/19 15:30 70 166/88 08/19/19 15:25 97.8 F 74 20 170/89 Pulse Ox Pulse Ox 08/20/19 13:30 08/20/19 13:15 08/20/19 13:00 08/20/19 12:45 08/20/19 12:30 08/20/19 12:15 08/20/19 12:00 08/20/19 11:45 08/20/19 11:35 100 08/20/19 10:00 08/20/19 08:18 08/20/19 08:17 98 08/20/19 07:26 08/20/19 04:04 98 08/20/19 04:00 08/19/19 23:31 97 08/19/19 22:16 08/19/19 22:00 08/19/19 20:14 97 08/19/19 20:12 08/19/19 19:48 98 08/19/19 18:50 95 08/19/19 17:35 98 08/19/19 17:30 08/19/19 17:15 08/19/19 17:00 08/19/19 16:45 08/19/19 16:30 08/19/19 16:15 08/19/19 16:00 08/19/19 15:45 08/19/19 15:30 08/19/19 15:25 98 - Physical Examination General: No Apparent Distress, Other (mild respiratory distress) HEENT: Positive: PERRL Neck: Positive: neck supple, trachea midline Cardiac: Positive: Regular Rate Lungs: Positive: Decreased Breath Sounds Neuro: Positive: Grossly Intact Abdomen: Positive: Unremarkable /Rectal: Other (deferred) Skin: Positive: Clear Musculoskeletal: Normal Range of Motion Extremities: Present: normal - Imaging and Cardiology Echo: report reviewed (08/16/2019: EF 15-20%, mod LVH, LV severely dilated, LA severely dilated, small pericardial effusion, small pleural effusion) Cardiac cath: report reviewed (2016: 1. Euvolemic state with right atrial pressure 3-5, pulmonary capillary) - EKG Ventricular dysrhythmias: ventricular premature com
--- NOTE | 2019-08-20 14:42 | Progress Note ---
Assessment and Plan Impression: End-stage renal disease, now started on dialysis Pulmonary edema secondary to above Volume overload secondary to above Recommendation: Continue with the supplemental oxygen Repeat chest x-ray after dialysis. Subjective Date of service: 08/20/19 Principal diagnosis: Acute respiratory failure Interval history: Patient in dialysis. No new complaints Objective Vital Signs - 12hr 08/20/19 08/20/19 08/20/19 04:00 04:04 07:26 Temperature 98.7 F 99.2 F Pulse Rate 66 65 Pulse Rate [ Bilateral Throughout] Respiratory 20 18 Rate Respiratory Rate [Bilateral Throughout] Blood Pressure 145/78 164/91 O2 Sat by Pulse 98 Oximetry O2 Sat by Pulse Oximetry [ Bilateral Throughout] 08/20/19 08/20/19 08/20/19 08:17 08:18 10:00 Temperature Pulse Rate 68 Pulse Rate [ 83 Bilateral Throughout] Respiratory Rate Respiratory 20 Rate [Bilateral Throughout] Blood Pressure O2 Sat by Pulse 98 Oximetry O2 Sat by Pulse Oximetry [ Bilateral Throughout] 08/20/19 08/20/19 08/20/19 11:35 11:45 12:00 Temperature 97.2 F L Pulse Rate 63 62 60 Pulse Rate [ Bilateral Throughout] Respiratory 20 Rate Respiratory Rate [Bilateral Throughout] Blood Pressure 142/85 139/85 142/89 O2 Sat by Pulse Oximetry O2 Sat by Pulse 100 Oximetry [ Bilateral Throughout] 08/20/19 08/20/19 08/20/19 12:15 12:30 12:45 Temperature Pulse Rate 61 61 62 Pulse Rate [ Bilateral Throughout] Respiratory Rate Respiratory Rate [Bilateral Throughout] Blood Pressure 150/88 149/88 159/86 O2 Sat by Pulse Oximetry O2 Sat by Pulse Oximetry [ Bilateral Throughout] 08/20/19 08/20/19 08/20/19 13:00 13:15 13:30 Temperature Pulse Rate 59 L 59 L 61 Pulse Rate [ Bilateral Throughout] Respiratory Rate Respiratory Rate [Bilateral Throughout] Blood Pressure 162/90 154/85 155/88 O2 Sat by Pulse Oximetry O2 Sat by Pulse Oximetry [ Bilateral Throughout] Constitutional: no acute distress, alert Eyes: non-icteric ENT: oropharynx moist Neck: supple, JVD Effort: normal Ascultation: Bilateral: clear (anteriorly), rhonchi (minimal) Cardiovascular: regular rate and rhythm (no mrg) Gastrointestinal: normoactive bowel sounds, soft, non-distended Integumentary: normal Extremities: no cyanosis, no edema, pink and warm Neurologic: normal mental status, non-focal exam, pupils equal and round Psychiatric: mood appropriate, affect normal CBC and BMP: 08/19/19 03:49 08/19/19 03:49 ABG, PT/INR, D-dimer: PT/INR, D-dimer PT 15.2 Sec. (12.2-14.9) H 08/16/19 04:49 INR 1.18 (0.87-1.13) H 08/16/19 04:49 Abnormal lab findings: Abnormal Labs 08/15/19 08/15/19 08/15/19 20:39 20:39 20:39 RBC 3.35 L Hgb 10.5 L Hct 30.7 L Seg Neuts % (Manual) 93.0 H Lymphocytes % (Manual) 4.0 L Lymphocytes # (Manual) 0.3 L PT INR Heparin Anti-Xa Level Carbon Dioxide 20 L BUN 40 H Creatinine 3.7 H Glucose 257 H POC Glucose Total Creatine Kinase 3076 H CK-MB (CK-2) 11.9 H Troponin T 0.129 H* 0.129 H* NT-Pro-B Natriuret Pep 44063 H Urine Creatinine 08/16/19 08/16/19 08/16/19 00:30 04:49 04:49 RBC Hgb 10.2 L Hct 30.0 L Seg Neuts % (Manual) Lymphocytes % (Manual) Lymphocytes # (Manual) PT INR Heparin Anti-Xa Level Carbon Dioxide BUN Creatinine Glucose POC Glucose Total Creatine Kinase 2784 H 2928 H CK-MB (CK-2) 18.0 H 20.5 H Troponin T 0.231 H* D 0.382 H* D NT-Pro-B Natriuret Pep Urine Creatinine 08/16/19 08/16/19 08/16/19 04:49 12:51 12:51 RBC Hgb Hct Seg Neuts % (Manual) Lymphocytes % (Manual) Lymphocytes # (Manual) PT 15.2 H INR 1.18 H Heparin Anti-Xa Level < 0.10 L Carbon Dioxide BUN Creatinine Glucose POC Glucose Total Creatine Kinase CK-MB (CK-2) Troponin T 0.488 H* D NT-Pro-B Natriuret Pep Urine Creatinine 08/16/19 08/16/19 08/16/19 15:30 18:02 21:37 RBC Hgb Hct Seg Neuts % (Manual) Lymphocytes % (Manual) Lymphocytes # (Manual) PT INR Heparin Anti-Xa Level Carbon Dioxide BUN Creatinine Glucose POC Glucose 242 H 237 H 189 H Total Creatine Kinase CK-MB (CK-2) Troponin T NT-Pro-B Natriuret Pep Urine Creatinine 08/16/19 08/16/19 08/17/19 21:40 21:40 05:45 RBC 3.09 L Hgb 9.5 L Hct 28.2 L Seg Neuts % (Manual) Lymphocytes % (Manual) Lymphocytes # (Manual) PT INR Heparin Anti-Xa Level < 0.10 L Carbon Dioxide BUN Creatinine Glucose POC Glucose Total Creatine Kinase CK-MB (CK-2) Troponin T 0.451 H* NT-Pro-B Natriuret Pep Urine Creatinine 08/17/19 08/17/19 08/17/19 05:45 08:08 11:56 RBC Hgb Hct Seg Neuts % (Manual) Lymphocytes % (Manual) Lymphocytes # (Manual) PT INR Heparin Anti-Xa Level Carbon Dioxide 19 L BUN 42 H Creatinine 4.0 H Glucose 151 H POC Glucose 145 H 180 H Total Creatine Kinase CK-MB (CK-2) Troponin T NT-Pro-B Natriuret Pep Urine Creatinine 08/17/19 08/17/19 08/18/19 15:36 18:18 00:17 RBC Hgb Hct Seg Neuts % (Manual) Lymphocytes % (Manual) Lymphocytes # (Manual) PT INR Heparin Anti-Xa Level Carbon Dioxide BUN Creatinine Glucose POC Glucose 168 H 212 H Total Creatine Kinase CK-MB (CK-2) Troponin T NT-Pro-B Natriuret Pep Urine Creatinine 77.8 H 08/18/19 08/18/19 08/18/19 04:12 04:12 04:12 RBC 3.13 L Hgb 9.6 L Hct 28.3 L Seg Neuts % (Manual) Lymphocytes % (Manual) Lymphocytes # (Manual) PT INR Heparin Anti-Xa Level 0.28 L Carbon Dioxide 18 L BUN 49 H Creatinine 3.9 H Glucose 210 H POC Glucose Total Creatine Kinase CK-MB (CK-2) Troponin T NT-Pro-B Natriuret Pep Urine Creatinine 08/18/19 08/18/19 08/18/19 07:59 12:07 17:31 RBC Hgb Hct Seg Neuts % (Manual) Lymphocytes % (Manual) Lymphocytes # (Manual) PT INR Heparin Anti-Xa Level Carbon Dioxide BUN Creatinine Glucose POC Glucose 228 H 200 H 200 H Total Creatine Kinase CK-MB (CK-2) Troponin T NT-Pro-B Natriuret Pep Urine Creatinine 08/18/19 08/19/19 08/19/19 20:55 03:49 03:49 RBC 3.03 L Hgb 9.3 L Hct 27.4 L Seg Neuts % (Manual) Lymphocytes % (Manual) Lymphocytes # (Manual) PT INR Heparin Anti-Xa Level Carbon Dioxide BUN 55 H Creatinine 4.2 H Glucose 169 H POC Glucose 153 H Total Creatine Kinase 432 H CK-MB (CK-2) Troponin T NT-Pro-B Natriuret Pep Urine Creatinine 08/19/19 08/19/19 08/19/19 08:03 11:40 22:17 RBC Hgb Hct Seg Neuts % (Manual) Lymphocytes % (Manual) Lymphocytes # (Manual) PT INR Heparin Anti-Xa Level Carbon Dioxide BUN Creatinine Glucose POC Glucose 185 H 245 H 209 H Total Creatine Kinase CK-MB (CK-2) Troponin T NT-Pro-B Natriuret Pep Urine Creatinine 08/20/19 07:35 RBC Hgb Hct Seg Neuts % (Manual) Lymphocytes % (Manual) Lymphocytes # (Manual) PT INR Heparin Anti-Xa Level Carbon Dioxide BUN Creatinine Glucose POC Glucose 134 H Total Creatine Kinase CK-MB (CK-2) Troponin T NT-Pro-B Natriuret Pep Urine Creatinine Chest x-ray: image reviewed (mild interstitial edema)
[2019-08-20] MEDS: INSULIN GLARGINE 100 UNITS/ML SUB-Q SCH (22:25)
[2019-08-20] MEDS: guaiFENesin 100 MG/5 ML ORAL LIQD PO PRN (22:33)
[2019-08-21] MEDS: FUROSEMIDE 40 MG/4 ML INJ IV SCH (06:19)
[2019-08-21] MEDS ORDERED: SODIUM CHLORIDE 0.9% 100 ML IV PRN (08:30)
--- NOTE | 2019-08-21 08:37 | XRay Report ---
CHEST 1 VIEW 0757 hours INDICATION / CLINICAL INFORMATION: CHF. COMPARISON: 08/19/2019 FINDINGS: Mild cardiomegaly and pulmonary venous congestion has nearly resolved. The lungs are clear. No eviden ce for infiltrate, pleural effusion or pneumothorax. A right IJ permacath has been inserted which ter minates near the cavoatrial junction. Pacemaker device is unchanged. IMPRESSION: Near resolution of CHF/volume overload. No acute process identified. Signer Name: Luca Eid Jr, MD Signed: 08/21/2019 8:32 AM Workstation Name: [id number]
[2019-08-21] MEDS: ALBUTEROL 2.5 MG/3 ML NEBU IH SCH ×3 (10:00→20:34)
[2019-08-21] MEDS: ASPIRIN EC 81 MG TAB PO SCH (10:19)
[2019-08-21] MEDS: ISOSORBIDE DINITRATE 20 MG TAB PO SCH ×2 (10:19→23:04)
[2019-08-21] MEDS: amLODIPine 10 MG TAB PO SCH (10:19)
[2019-08-21] MEDS: carvediloL 25 MG TAB PO SCH ×2 (10:19→23:03)
[2019-08-21] MEDS: hydrALAZINE 100 MG TAB PO SCH ×3 (10:19→23:05)
[2019-08-21] MEDS: HEPARIN 5,000 UNIT/1 ML VIAL SUB-Q SCH ×2 (10:19→23:04)
[2019-08-21] MEDS: INSULIN LISPRO 100 UNIT/ML SUB-Q SCH ×4 (10:21→23:11)
--- NOTE | 2019-08-21 12:10 | Progress Note ---
Assessment and Plan Acute respiratory failure / pulmonary edema Improved. CXR today with near resolution of HF. Acute on chronic HFrEF Nearing euvolemia. CXR today with near resolution of HF. Cont volume optimization per nephrology team. Cont lopressor, consider addition of ACEI/ARB if/when okay per nephrology. ICMP An echocardiogram done at [facility] in 2016 found an EF of 30 percent, mild LVH, severely dilated LV, mild MR and a small pericardial effusion. Echo done 08/16/2019 showed EF 15-20%, mild to mod LVH, LV severely dilated, restrictive diastolic filling, LA severely dilated, RA mildl dilated, pacemaker wire in RV and RA, mild MR, mild TR, RVSP 37mmHg, smal pericardial effusion. Cont ASA, statin, lopressor, Isordil, hydralazine, consider addition of ACEI/ARB if/when okay per nephrology. AICD in situ Followed by [facility]. CAD s/p PCI to LAD in 2015 Cont ASA, statin, lopressor, Isordil, consider addition of ACEI/ARB if/when okay per nephrology. NSTEMI Suspect type II. ECG with NSR and LBBB, no acute ischemic changes. Pt denies any occurrence of chest pain. However, given h/o CAD, reduced LVEF, LBBB and clinical presentation, coronary angiography recommended for definitive diagnosis. Indications, potential risks and benefits of LHC reviewed with pt and he is agreeable to proceed with LHC in AM. NPO after MN. For HD following LHC. D/w nephrology. LBBB HTN Stable. DM ESRD Initiated on HD this admission. Nephrology following. The patient has been seen in conjunction with Dr. Meeks who agrees with the assessment and plan of care. Subjective Date of service: 08/21/19 Principal diagnosis: Acute respiratory failure; HF Interval history: pt resting in bed, states he is feeling better today. no current complaints. in SR on tele, no acute events overnight. 3 beat run NSVT noted yesterday. Objective Last Vital Signs Temp 97.8 F 08/21/19 08:00 Pulse 62 08/21/19 10:00 Resp 20 08/21/19 08:00 BP 159/91 08/21/19 08:00 Pulse Ox 96 08/21/19 10:00 - Physical Examination General: No Apparent Distress HEENT: Positive: PERRL Neck: Positive: neck supple, trachea midline Cardiac: Positive: Reg Rate and Rhythm, S1/S2 Lungs: Positive: Decreased Breath Sounds Neuro: Positive: Grossly Intact Abdomen: Positive: Unremarkable /Rectal: Other (deferred) Skin: Positive: Clear Musculoskeletal: Normal Range of Motion Extremities: Present: normal - Imaging and Cardiology Echo: report reviewed (08/16/2019: EF 15-20%, mod LVH, LV severely dilated, LA severely dilated, small pericardial effusion, small pleural effusion) Cardiac cath: report reviewed (2016: 1. Euvolemic state with right atrial pressure 3-5, pulmonary capillary) - EKG Ventricular dysrhythmias: ventricular premature com
--- NOTE | 2019-08-21 13:19 | Progress Note ---
Assessment and Plan 1. ESRD: CKD has progressed to ESRD. Renal US negative for hydro. Baseline creatinine 3.5 last month. Renal prognosis is guarded to poor. Avoid nephrotoxic agents. Meds dosage based on GFR. Patient was started on hemodialysis due to worsening renal function, volume overload and uncontrolled HTN. Hemodialysis: 08/19, 08/20. 2. FEN: Volume overload, mostly improved. Continue Lasix. Metabolic acidosis, improved. Monitor lytes. 3. Uncontrolled HTN: BP is better. 4. Acute hypoxic respiratory failure: Improving. 5. NSTEMI type 2: Followed by Cards. 6. Acute on chronic HFpEF. 7. Normochromic anemia: POA. 8. Elevated CK: Improving. 9. DM type 2: Monitor. Await outpatient HD chair. Examination: General appearance: well-developed, well-nourished, appears stated age, no distress HEENT: ATNC, RIVER, hearing intact, vision intact Neck: neck supple, trachea midline Respiratory: ctab Heart: regular, S1S2, no murmurs Gastrointestinal: Soft, normoactive bowel sounds, not tender, not distended Integumentary: no rash, warm and dry Neurologic: no focal deficit, no asterixis, alert and oriented x3 Ext: no edema Psychiatric: cooperative Hemodialysis access: R IJ tunnel catheter Subjective Date of service: 08/21/19 Principal diagnosis: Acute respiratory failure; HF Interval history: Patient was seen and examined at the bedside. Doing better. Objective - Vital Signs Vital signs: Vital Signs - 12hr 08/21/19 08/21/19 08/21/19 05:26 08:00 10:00 Temperature 99.3 F 97.8 F Pulse Rate 68 68 62 Pulse Rate [ 72 Bilateral Throughout] Respiratory 20 18 Rate Respiratory 20 Rate [Bilateral Throughout] Blood Pressure 142/80 159/91 O2 Sat by Pulse 94 99 96 Oximetry - Lab 08/19/19 03:49 08/19/19 03:49 Most recent lab results Calcium 9.2 mg/dL (8.4-10.2) 08/19/19 03:49 Phosphorus 4.50 mg/dL (2.5-4.5) 08/18/19 04:12 Magnesium 1.90 mg/dL (1.7-2.3) 08/18/19 04:12 Urine Creatinine 77.8 mg/dL (0.1-20.0) H 08/17/19 18:18 Urine Sodium 66 mmol/L 08/17/19 18:18 Medications & Allergies - Medications Allergies/Adverse Reactions: Allergies No Known Allergies Allergy (Verified 08/15/19 18:58) Home Medications: Home Medications Medication Instructions Recorded Confirmed Last Taken Type Amlodipine Besylate [Norvasc] 10 mg PO QDAY 08/15/19 08/15/19 Unknown History Aspirin EC [Halfprin EC] 81 mg PO QDAY 08/15/19 08/15/19 Unknown History Atorvastatin Calcium [Lipitor] 80 mg PO QHS 08/15/19 08/15/19 Unknown History Clopidogrel [Plavix] 75 mg PO QDAY 08/15/19 08/15/19 Unknown History Furosemide [Lasix TAB] 80 mg PO QDAY 08/15/19 08/15/19 Unknown History Insulin Detemir [Levemir Flextouch] 15 unit SQ QHS 08/15/19 08/15/19 Unknown History Isosorbide Dinitrate [Isordil] 40 mg PO TID 08/15/19 08/15/19 Unknown History Potassium Chloride [K-Dur] 20 meq PO QDAY 08/15/19 08/15/19 Unknown History carvediloL [Coreg] 25 mg PO BID 08/15/19 08/15/19 Unknown History cloNIDine-TTS PATCH [Catapres-Tts 1 patch TD Q7D 08/15/19 08/15/19 Unknown History 0.1MG Patch] hydrALAZINE [Apresoline TAB] 100 mg PO TID 08/15/19 08/15/19 Unknown History Active Medications: Generic Name Dose Route Start Last Admin Trade Name Freq PRN Reason Stop Dose Admin Acetaminophen 650 mg 08/15/19 23:28 08/20/19 07:53 Tylenol PO 650 mg Q4H PRN Administration Headache Albuterol 2.5 mg 08/19/19 00:17 Proventil IH Q4HRT PRN Shortness Of Breath Albuterol 2.5 mg 08/19/19 08:00 08/21/19 10:00 Proventil IH 2.5 mg TIDRT JOSHUA Administration Amlodipine Besylate 10 mg 08/16/19 10:00 08/21/19 10:19 Amlodipine PO 10 mg QDAY JOSHUA Administration Aspirin 81 mg 08/16/19 10:00 08/21/19 10:19 Halfprin Ec PO 81 mg QDAY [facility] Administration Atorvastatin Calcium 80 mg 08/16/19 22:00 08/20/19 22:24 Lipitor PO 80 mg QHS JOSHUA Administration Carvedilol 25 mg 08/16/19 10:00 08/21/19 10:19 Coreg PO 25 mg BID JOSHUA Administration Clonidine HCl 0.1 mg 08/15/19 23:45 08/16/19 21:50 Catapres-Tts Patch TD 0.1 mg Fr@2200 JOSHUA Administration Dextrose 50 ml 08/18/19 09:27 D50w (25gm) Syringe IV Q30MIN PRN Hypoglycemia Protocol Epoetin Db 10,000 unit 08/20/19 10:12 08/20/19 13:57 Procrit SUB-Q 10,000 unit NINFA PRN Administration hemodialysis Furosemide 80 mg 08/22/19 10:00 Lasix PO QDAY [facility] Guaifenesin 200 mg 08/15/19 23:29 08/20/19 22:33 Robitussin PO 200 mg Q4H PRN Administration Cough Heparin Sodium (Porcine) 5,000 unit 08/19/19 10:00 08/21/19 10:19 Heparin SUB-Q 5,000 unit Q12HR JOSHUA Administration Hydralazine HCl 100 mg 08/16/19 08:00 08/21/19 10:19 Apresoline PO 100 mg TID JOSHUA Administration Sodium Chloride 100 mls @ 999 mls/hr 08/21/19 08:30 Nacl 0.9% IV NINFA PRN Hypotension Insulin Glargine 15 units 08/16/19 22:00 08/20/19 22:25 Lantus SUB-Q 15 units QHS JOSHUA Administration Insulin Human Lispro 0 unit 08/18/19 11:30 08/21/19 10:21 Humalog SUB-Q Not Given ACHS [facility] Protocol Isosorbide Dinitrate 40 mg 08/18/19 10:00 08/21/19 10:19 Isordil Titradose PO 40 mg BID JOSHUA Administration Ondansetron HCl 4 mg 08/15/19 23:28 Zofran IV Q8H PRN Nausea And Vomiting
--- NOTE | 2019-08-21 14:13 | Progress Note ---
Assessment and Plan Patient is a 64 yo man with a history of hypertension and CHF (first visit in our EMR) who presented to [facility] ED with severe SOB requiring Bipap, pulse ox was only 83%. * -EVANS /CKDvasomotor nephropathy: treat the CHF, consulted Nephrology, input noted Marilynn vasomotor EVANS superimposed on CKD stage 4. Renal US and Urine studies ordered. Baseline creatinine 3.5 last month. Renal function continue to decline. Monitor renal function. Renal prognosis is guarded to poor. Avoid nephrotoxic agents. Meds dosage based on GFR. Patient and family gave consent for hemodialysis. Vas-Cath placed yesterday -Acute on chronic decompensated systolic heart failure: treat with iv lasix, consult Cardiology, ECHO reviewed, EF 15-20% -Acute hypoxic respiratory failure: wean off bipap, on O2 via nasal canula, consulted CCM/Pulm, not sure why no evaluation -NSTEMI; on heparin drip and off NTG drip, d/w Cardiology ok to d/c heparin drip and move to tele, needs ischemic evaluation but Cr is 3.9 -Malignant Hypertension: off NTG drip, was switched to Cardene iv drip and both have been off since Sunday -Uncontrolled type 2 DM: add ssi, monitor blood glucose closely and make adjustment accordingly -SIRs, noninfectious with organ dysfunction, poa: continue to treat the CHF and ARF -Anemia: check FOBT pending (not sure why not collected), monitor CBC closely, repeat in am -DVT ppx: d/c heparin drip and start sq heparin Disposition: continue inpatient care, transfer to telemetry. May discharge today or tomorrow after patient is cleared from nephrology standpoint Patient may need hemodialysis chair placement full code Transfer to med surg floor Subjective Date of service: 08/21/19 Principal diagnosis: Acute respiratory failure; HF Interval history: Interval history: Patient was seen and examined. Follow-up on current diagnosis of CHF. No overnight events reported to me. Patient denies any nausea/vomiting or severe headaches. Imaging, nursing note, chart, labs and old chart reviewed. Discussed with patient. He still has SOB but improved, denies chest pains. Transferred to telemetry on 08/18/2019 Symtomatically better Waiting for HD chair. Objective - Constitutional Vitals: Vital Signs - 12hr 08/21/19 08/21/19 08/21/19 05:26 08:00 10:00 Temperature 99.3 F 97.8 F Pulse Rate 68 68 62 Pulse Rate [ 72 Bilateral Throughout] Respiratory 20 18 Rate Respiratory 20 Rate [Bilateral Throughout] Blood Pressure 142/80 159/91 O2 Sat by Pulse 94 99 96 Oximetry General appearance: Present: no acute distress, well-nourished - EENT Eyes: PERRL, EOM intact ENT: hearing intact, clear oral mucosa Ears: bilateral: normal - Neck Neck: supple, normal ROM - Respiratory Respiratory effort: normal Respiratory: bilateral: CTA - Breasts Breasts: normal - Cardiovascular Heart rate: 78 Rhythm: regular Heart Sounds: Present: S1 & S2. Absent: gallop, rub Extremities: no ischemia, pulses intact, No edema, normal color, Full ROM - Gastrointestinal General gastrointestinal: Present: soft, non-tender, non-distended, normal bowel sounds - Genitourinary Male genitourinary: normal - Integumentary Integumentary: clear, warm, dry - Musculoskeletal Musculoskeletal: 1, strength equal bilaterally - Neurologic Neurologic: moves all extremities - Psychiatric Psychiatric: memory intact, appropriate mood/affect, intact judgment & insight - Labs CBC & Chem 7: 08/19/19 03:49 08/19/19 03:49 Labs: Abnormal lab results 08/20/19 08/20/19 08/21/19 Range/Units 15:40 21:49 08:04 POC Glucose 175 H 220 H 136 H (70-105) 08/21/19 Range/Units 12:17 POC Glucose 176 H (70-105)
--- NOTE | 2019-08-21 21:51 | Progress Note ---
Assessment and Plan Imp: 1. ICMP 2. A/C systolic CHF -> pulm edema 3. Hypertensive urgency 4. Acute respiratory failure, hypoxia 5. EVANS on CKD Rec: 1. Diuresis/dialysis per renal 2. BP control 3. Off O2 4. For C 5. Can go home pulm-mott Plan of care reviewed w/ patient, he understands/agrees Subjective Date of service: 08/21/19 Principal diagnosis: Acute respiratory failure; HF Interval history: No events. On RA. SOB resolved. No new complaints. Active Medications Acetaminophen (Tylenol) 650 mg PO Q4H PRN PRN Reason: Headache Last Admin: 08/20/19 07:53 Dose: 650 mg Documented by: Albuterol (Proventil) 2.5 mg IH Q4HRT PRN PRN Reason: Shortness Of Breath Albuterol (Proventil) 2.5 mg IH TIDRT [facility] Last Admin: 08/21/19 20:34 Dose: 2.5 mg Documented by: Amlodipine Besylate (Amlodipine) 10 mg PO QDAY [facility] Last Admin: 08/21/19 10:19 Dose: 10 mg Documented by: Aspirin (Halfprin Ec) 81 mg PO QDAY [facility] Last Admin: 08/21/19 10:19 Dose: 81 mg Documented by: Atorvastatin Calcium (Lipitor) 80 mg PO QHS [facility] Last Admin: 08/20/19 22:24 Dose: 80 mg Documented by: Carvedilol (Coreg) 25 mg PO BID [facility] Last Admin: 08/21/19 10:19 Dose: 25 mg Documented by: Clonidine HCl (Catapres-Tts Patch) 0.1 mg TD Fr@2200 [facility] Last Admin: 08/16/19 21:50 Dose: 0.1 mg Documented by: Dextrose (D50w (25gm) Syringe) 50 ml IV Q30MIN PRN; Protocol PRN Reason: Hypoglycemia Epoetin Db (Procrit) 10,000 unit SUB-Q NINFA PRN PRN Reason: hemodialysis Last Admin: 08/20/19 13:57 Dose: 10,000 unit Documented by: Furosemide (Lasix) 80 mg PO QDAY [facility] Guaifenesin (Robitussin) 200 mg PO Q4H PRN PRN Reason: Cough Last Admin: 08/20/19 22:33 Dose: 200 mg Documented by: Heparin Sodium (Porcine) (Heparin) 5,000 unit SUB-Q Q12HR [facility] Last Admin: 08/21/19 10:19 Dose: 5,000 unit Documented by: Hydralazine HCl (Apresoline) 100 mg PO TID [facility] Last Admin: 08/21/19 14:30 Dose: 100 mg Documented by: Sodium Chloride (Nacl 0.9%) 100 mls @ 999 mls/hr IV NINFA PRN PRN Reason: Hypotension Insulin Glargine (Lantus) 15 units SUB-Q QHS [facility] Last Admin: 08/20/19 22:25 Dose: 15 units Documented by: Insulin Human Lispro (Humalog) 0 unit SUB-Q ACHS [facility]; Protocol Last Admin: 08/21/19 17:33 Dose: 6 unit Documented by: Isosorbide Dinitrate (Isordil Titradose) 40 mg PO BID [facility] Last Admin: 08/21/19 10:19 Dose: 40 mg Documented by: Ondansetron HCl (Zofran) 4 mg IV Q8H PRN PRN Reason: Nausea And Vomiting Objective Vital Signs - 12hr 08/21/19 08/21/19 08/21/19 10:00 12:43 14:00 Temperature 98.8 F Pulse Rate 62 67 Pulse Rate [ 72 Bilateral Throughout] Respiratory 18 Rate Respiratory 20 Rate [Bilateral Throughout] Blood Pressure 151/71 O2 Sat by Pulse 96 96 Oximetry 08/21/19 08/21/19 08/21/19 18:26 19:21 20:00 Temperature 98.4 F Pulse Rate 75 72 Pulse Rate [ 68 Bilateral Throughout] Respiratory 18 Rate Respiratory 18 Rate [Bilateral Throughout] Blood Pressure 139/75 157/83 O2 Sat by Pulse 96 98 Oximetry 08/21/19 08/21/19 20:25 20:36 Temperature Pulse Rate Pulse Rate [ Bilateral Throughout] Respiratory 18 Rate Respiratory Rate [Bilateral Throughout] Blood Pressure O2 Sat by Pulse 99 Oximetry Constitutional: no acute distress, alert Eyes: non-icteric ENT: oropharynx moist Neck: supple Effort: normal Ascultation: Bilateral: clear (anteriorly) Cardiovascular: regular rate and rhythm (no mrg) Gastrointestinal: normoactive bowel sounds, soft, non-distended Integumentary: normal Extremities: no cyanosis, no edema, pink and warm Neurologic: normal mental status, non-focal exam, pupils equal and round Psychiatric: mood appropriate, affect normal CBC and BMP: 08/19/19 03:49 08/19/19 03:49 ABG, PT/INR, D-dimer: PT/INR, D-dimer PT 15.2 Sec. (12.2-14.9) H 08/16/19 04:49 INR 1.18 (0.87-1.13) H 08/16/19 04:49 Abnormal lab findings: Abnormal Labs 08/15/19 08/15/19 08/15/19 20:39 20:39 20:39 RBC 3.35 L Hgb 10.5 L Hct 30.7 L Seg Neuts % (Manual) 93.0 H Lymphocytes % (Manual) 4.0 L Lymphocytes # (Manual) 0.3 L PT INR Heparin Anti-Xa Level Carbon Dioxide 20 L BUN 40 H Creatinine 3.7 H Glucose 257 H POC Glucose Total Creatine Kinase 3076 H CK-MB (CK-2) 11.9 H Troponin T 0.129 H* 0.129 H* NT-Pro-B Natriuret Pep 21280 H Urine Creatinine 08/16/19 08/16/19 08/16/19 00:30 04:49 04:49 RBC Hgb 10.2 L Hct 30.0 L Seg Neuts % (Manual) Lymphocytes % (Manual) Lymphocytes # (Manual) PT INR Heparin Anti-Xa Level Carbon Dioxide BUN Creatinine Glucose POC Glucose Total Creatine Kinase 2784 H 2928 H CK-MB (CK-2) 18.0 H 20.5 H Troponin T 0.231 H* D 0.382 H* D NT-Pro-B Natriuret Pep Urine Creatinine 08/16/19 08/16/19 08/16/19 04:49 12:51 12:51 RBC Hgb Hct Seg Neuts % (Manual) Lymphocytes % (Manual) Lymphocytes # (Manual) PT 15.2 H INR 1.18 H Heparin Anti-Xa Level < 0.10 L Carbon Dioxide BUN Creatinine Glucose POC Glucose Total Creatine Kinase CK-MB (CK-2) Troponin T 0.488 H* D NT-Pro-B Natriuret Pep Urine Creatinine 08/16/19 08/16/19 08/16/19 15:30 18:02 21:37 RBC Hgb Hct Seg Neuts % (Manual) Lymphocytes % (Manual) Lymphocytes # (Manual) PT INR Heparin Anti-Xa Level Carbon Dioxide BUN Creatinine Glucose POC Glucose 242 H 237 H 189 H Total Creatine Kinase CK-MB (CK-2) Troponin T NT-Pro-B Natriuret Pep Urine Creatinine 08/16/19 08/16/19 08/17/19 21:40 21:40 05:45 RBC 3.09 L Hgb 9.5 L Hct 28.2 L Seg Neuts % (Manual) Lymphocytes % (Manual) Lymphocytes # (Manual) PT INR Heparin Anti-Xa Level < 0.10 L Carbon Dioxide BUN Creatinine Glucose POC Glucose Total Creatine Kinase CK-MB (CK-2) Troponin T 0.451 H* NT-Pro-B Natriuret Pep Urine Creatinine 08/17/19 08/17/19 08/17/19 05:45 08:08 11:56 RBC Hgb Hct Seg Neuts % (Manual) Lymphocytes % (Manual) Lymphocytes # (Manual) PT INR Heparin Anti-Xa Level Carbon Dioxide 19 L BUN 42 H Creatinine 4.0 H Glucose 151 H POC Glucose 145 H 180 H Total Creatine Kinase CK-MB (CK-2) Troponin T NT-Pro-B Natriuret Pep Urine Creatinine 08/17/19 08/17/19 08/18/19 15:36 18:18 00:17 RBC Hgb Hct Seg Neuts % (Manual) Lymphocytes % (Manual) Lymphocytes # (Manual) PT INR Heparin Anti-Xa Level Carbon Dioxide BUN Creatinine Glucose POC Glucose 168 H 212 H Total Creatine Kinase CK-MB (CK-2) Troponin T NT-Pro-B Natriuret Pep Urine Creatinine 77.8 H 08/18/19 08/18/19 08/18/19 04:12 04:12 04:12 RBC 3.13 L Hgb 9.6 L Hct 28.3 L Seg Neuts % (Manual) Lymphocytes % (Manual) Lymphocytes # (Manual) PT INR Heparin Anti-Xa Level 0.28 L Carbon Dioxide 18 L BUN 49 H Creatinine 3.9 H Glucose 210 H POC Glucose Total Creatine Kinase CK-MB (CK-2) Troponin T NT-Pro-B Natriuret Pep Urine Creatinine 08/18/19 08/18/19 08/18/19 07:59 12:07 17:31 RBC Hgb Hct Seg Neuts % (Manual) Lymphocytes % (Manual) Lymphocytes # (Manual) PT INR Heparin Anti-Xa Level Carbon Dioxide BUN Creatinine Glucose POC Glucose 228 H 200 H 200 H Total Creatine Kinase CK-MB (CK-2) Troponin T NT-Pro-B Natriuret Pep Urine Creatinine 08/18/19 08/19/19 08/19/19 20:55 03:49 03:49 RBC 3.03 L Hgb 9.3 L Hct 27.4 L Seg Neuts % (Manual) Lymphocytes % (Manual) Lymphocytes # (Manual) PT INR Heparin Anti-Xa Level Carbon Dioxide BUN 55 H Creatinine 4.2 H Glucose 169 H POC Glucose 153 H Total Creatine Kinase 432 H CK-MB (CK-2) Troponin T NT-Pro-B Natriuret Pep Urine Creatinine 08/19/19 08/19/19 08/19/19 08:03 11:40 22:17 RBC Hgb Hct Seg Neuts % (Manual) Lymphocytes % (Manual) Lymphocytes # (Manual) PT INR Heparin Anti-Xa Level Carbon Dioxide BUN Creatinine Glucose POC Glucose 185 H 245 H 209 H Total Creatine Kinase CK-MB (CK-2) Troponin T NT-Pro-B Natriuret Pep Urine Creatinine 08/20/19 08/20/19 08/20/19 07:35 15:40 21:49 RBC Hgb Hct Seg Neuts % (Manual) Lymphocytes % (Manual) Lymphocytes # (Manual) PT INR Heparin Anti-Xa Level Carbon Dioxide BUN Creatinine Glucose POC Glucose 134 H 175 H 220 H Total Creatine Kinase CK-MB (CK-2) Troponin T NT-Pro-B Natriuret Pep Urine Creatinine 08/21/19 08/21/19 08/21/19 08:04 12:17 17:12 RBC Hgb Hct Seg Neuts % (Manual) Lymphocytes % (Manual) Lymphocytes # (Manual) PT INR Heparin Anti-Xa Level Carbon Dioxide BUN Creatinine Glucose POC Glucose 136 H 176 H 278 H Total Creatine Kinase CK-MB (CK-2) Troponin T NT-Pro-B Natriuret Pep Urine Creatinine 08/21/19 21:36 RBC Hgb Hct Seg Neuts % (Manual) Lymphocytes % (Manual) Lymphocytes # (Manual) PT INR Heparin Anti-Xa Level Carbon Dioxide BUN Creatinine Glucose POC Glucose 162 H Total Creatine Kinase CK-MB (CK-2) Troponin T NT-Pro-B Natriuret Pep Urine Creatinine Chest x-ray: report reviewed, image reviewed (clear lungs)
[2019-08-21] MEDS: guaiFENesin 100 MG/5 ML ORAL LIQD PO PRN (23:03)
[2019-08-21] MEDS: INSULIN GLARGINE 100 UNITS/ML SUB-Q SCH (23:04)
[2019-08-22 06:51] LABS: Hematocrit 28.9 % (35.5-45.6); Hemoglobin 9.8 gm/dl (11.8-15.2); Mean Corpuscular HGB Conc 34 % (32-34); Mean Corpuscular Volume 90 fl (84-94); Platelet Count 300 K/mm3 (140-440); Red Cell Distribution Width 13.5 % (13.2-15.2)
[2019-08-22 07:03] LABS: INR 1.14 (0.87-1.13)
[2019-08-22 07:12] LABS: Calcium 8.9 mg/dL (8.4-10.2)
[2019-08-22] MEDS ORDERED: SODIUM CHLORIDE 0.9% 500 ML 500 ML ONE (07:13)
[2019-08-22] MEDS ORDERED: ASPIRIN EC 81 MG TAB PO ONE (07:13)
[2019-08-22] MEDS: ASPIRIN EC 81 MG TAB PO SCH ×2 (07:14→10:43)
[2019-08-22] MEDS ORDERED: POTASSIUM CHLORIDE ER 20 MEQ TAB PO ONE ×2 (07:32→08:00)
[2019-08-22] MEDS ORDERED: SODIUM CHLORIDE 0.9% 500 ML 500 ML IV SCH (08:00)
[2019-08-22] MEDS ORDERED: HEPARIN 10,000 UNITS/10 ML VIAL ONE (08:15)
[2019-08-22] MEDS ORDERED: HEPARIN/NS 5000 UNIT/500ML 1,000 ML IR ONE (08:15)
[2019-08-22] MEDS ORDERED: SODIUM CHLORIDE 0.9% 250ML 0 ML ONE (08:15)
[2019-08-22] MEDS: INSULIN LISPRO 100 UNIT/ML SUB-Q SCH ×2 (08:17→14:16)
[2019-08-22] MEDS: MIDAZOLAM 2 MG/2 ML INJ ONE ×2 (08:40→08:52)
[2019-08-22] MEDS: fentaNYL 100 MCG/2 ML INJ ONE ×2 (08:41→08:52)
[2019-08-22] MEDS: LIDOCAINE (2%) 20 MG/1 ML VIAL 20 ML MDV INFILTRATI ONE ×2 (08:41→08:57)
[2019-08-22] MEDS: ALBUTEROL 2.5 MG/3 ML NEBU IH SCH ×2 (08:52→09:55)
[2019-08-22 09:25] LABS: Anisocytosis Few; Band Neutrophils # (Manual) 0.1 K/mm3; Basophils % (Manual) 0 % (0.0-1.8); Hypochromasia Few; Platelet Estimate Consistent w Auto; Poikilocytosis Few; Total Cells Counted 100
[2019-08-22] MEDS ORDERED: FUROSEMIDE 40 MG TAB PO SCH (10:00)
--- NOTE | 2019-08-22 10:29 | Cardiac Catherization Report ---
INDICATION FOR PROCEDURE: The patient is a 64-year-old -Russian gentleman with a history of ischemic cardiomyopathy, status post intervention of the LAD in 2016, known to have chronic heart failure with reduced ejection fraction, status post ICD placement in addition to longstanding diabetes mellitus and recently, he was started on dialysis because of end-stage renal disease. The patient has underlying chronic kidney disease. The patient presented to the Emergency Room at [facility] on 08/17/2019 with evidence of congestive heart failure, worsening along with elevated troponins, suggestive of non-STEMI. He was started on dialysis and presently stable. Because of his non-STEMI, he is scheduled for cardiac catheterization for definitive diagnosis and treatment. The patient was brought to the catheterization laboratory in a fasting condition. The patient was explained of the procedure, potential complications, and alternatives of therapy available. The patient is willing to proceed with cardiac catheterization. DESCRIPTION OF PROCEDURE: The patient was evaluated for appropriateness for moderate sedation and was found to be appropriate candidate. The patient received IV Versed and fentanyl starting at 8:51 a.m. Subsequently, local anesthesia was given in the right groin and right common femoral artery puncture was made under fluoroscopy without difficulty using micropuncture needle. A 5-Estonian sheath was introduced. A 5-Estonian multipurpose catheter was used to obtain the angiograms of the left coronary artery in multiple views followed by angiograms of the right coronary artery in multiple views and left ventriculogram done in BAUTISTA projection using power injector 24 mL at 8 mL per second. At the end of the procedure, catheter and sheath were removed. Good hemostasis was achieved with manual pressure. The patient tolerated the procedure well. No untoward complications were noted. The patient was monitored throughout the procedure for side effects from moderate sedation. At the end of the procedure, the patient did not have any side effects. The patient was communicating normally and comfortable, breathing normally with no focal deficits. Moderate sedation monitoring ended at 9:13 a.m. The patient was transferred to the room in stable condition. Manual pressure was applied for hemostasis and good hemostasis was achieved. Following findings were noted. HEMODYNAMICS: 1. Opening aortic pressure 179/88, left ventricular pressure 182/18. No gradient across the aortic valve. Estimated ejection fraction around 20-30%. No gradient across the aortic valve. 2. Left ventriculogram done in BA[place]ISTA projection showed moderately dilated LV with severe diffuse hypokinesis. Ejection fraction was felt to be around 20-30%. Mitral regurgitation was not evaluated. 3. Right coronary artery. Probably dominant vessel is chronically occluded with barely visible vessel in the mid and distal part. Only faint visualization of the distal vessels noted. However, the distal vessels appeared to be very,very small. 4. Left coronary artery arises normally from left coronary cusp. Diffuse heavy calcifications noted throughout the vascular tree. Left main without significant disease. LAD showed mild to moderate disease in the proximal part. Two proximal diagonal branches, which are moderate sized vessels show diffuse disease approaching 80-90%. Mid LAD showed a widely patent stent. Distal LAD showed 80% very distal lesion at the apex. Distal to this lesion, vessel is small. 5. Circumflex artery showed diffuse calcification in addition to a significant bifurcation lesion involving the anterolateral and posterolateral branch. At the origin of both the vessels, there is 70% heavily calcified lesions noted and also posterior lateral branch has a segmental 70% or more calcific lesion in the distal part. Collaterals none. FINAL IMPRESSION: Severe LV dysfunction, ejection fraction in the range of 20-30%, patent mid LAD stent with severe diffuse disease of the proximal diagonal branches. In addition, circumflex artery has bypassable vessels, but severe , calcific lesions noted. RCA probably dominant vessel is severely diffusely diseased with no visualization of the distal vessels well. Considering the above angiographic pictures, revascularization can be considered either percutaneously or surgically. Considering the calcifications and poor LV function,patient is a high risk for intervention. The patient is stable, tolerated the procedure well. The patient was transferred to the room in stable condition. Discussed with [facility] and Dr.Davis Breaux,interventionalist is going to call back regarding transfer. JOB# [id number] ZEFERINO/CHUCHO MARIN
[2019-08-22] MEDS: ISOSORBIDE DINITRATE 20 MG TAB PO SCH (10:43)
[2019-08-22 10:44] VITALS: BP 171/90
[2019-08-22] MEDS: amLODIPine 10 MG TAB PO SCH (10:44)
[2019-08-22] MEDS: carvediloL 25 MG TAB PO SCH (10:44)
[2019-08-22] MEDS: HEPARIN 5,000 UNIT/1 ML VIAL SUB-Q SCH (10:45)
[2019-08-22] MEDS: hydrALAZINE 100 MG TAB PO SCH ×2 (10:45→14:38)
--- NOTE | 2019-08-22 12:05 | Progress Note ---
Assessment and Plan Imp: 1. ICMP 2. A/C systolic CHF -> pulm edema 3. Hypertensive urgency 4. Acute respiratory failure, hypoxia 5. EVANS on CKD 6. CAD Rec: 1. Diuresis/dialysis per renal 2. BP control 3. Off O2 4. Reviewed [facility] report -> f/u cardiology final recs 5. Can go home pulm-mott; consider outpatient PFTs given smoking history Plan of care reviewed w/ patient, he understands/agrees Subjective Date of service: 08/22/19 Principal diagnosis: Acute respiratory failure; HF Interval history: No events. On RA. SOB resolved. No new complaints. s/p [facility] today. Active Medications Acetaminophen (Tylenol) 650 mg PO Q4H PRN PRN Reason: Headache Last Admin: 08/20/19 07:53 Dose: 650 mg Documented by: Albuterol (Proventil) 2.5 mg IH Q4HRT PRN PRN Reason: Shortness Of Breath Albuterol (Proventil) 2.5 mg IH TIDRT [facility] Last Admin: 08/22/19 09:55 Dose: 2.5 mg Documented by: Amlodipine Besylate (Amlodipine) 10 mg PO QDAY [facility] Last Admin: 08/22/19 10:44 Dose: 10 mg Documented by: Aspirin (Halfprin Ec) 81 mg PO QDAY [facility] Last Admin: 08/22/19 10:43 Dose: 81 mg Documented by: Atorvastatin Calcium (Lipitor) 80 mg PO QHS [facility] Last Admin: 08/21/19 23:03 Dose: 80 mg Documented by: Carvedilol (Coreg) 25 mg PO BID [facility] Last Admin: 08/22/19 10:44 Dose: 25 mg Documented by: Clonidine HCl (Catapres-Tts Patch) 0.1 mg TD Fr@2200 [facility] Last Admin: 08/16/19 21:50 Dose: 0.1 mg Documented by: Dextrose (D50w (25gm) Syringe) 50 ml IV Q30MIN PRN; Protocol PRN Reason: Hypoglycemia Epoetin Db (Procrit) 10,000 unit SUB-Q NINFA PRN PRN Reason: hemodialysis Last Admin: 08/20/19 13:57 Dose: 10,000 unit Documented by: Furosemide (Lasix) 80 mg PO QDAY [facility] Last Admin: 08/22/19 10:44 Dose: 80 mg Documented by: Guaifenesin (Robitussin) 200 mg PO Q4H PRN PRN Reason: Cough Last Admin: 08/21/19 23:03 Dose: 200 mg Documented by: Heparin Sodium (Porcine) (Heparin) 5,000 unit SUB-Q Q12HR [facility] Last Admin: 08/22/19 10:45 Dose: 5,000 unit Documented by: Hydralazine HCl (Apresoline) 100 mg PO TID [facility] Last Admin: 08/22/19 10:45 Dose: Not Given Documented by: Sodium Chloride (Nacl 0.9% 500 Ml) 500 mls @ 50 mls/hr IV DIRECT [facility] Last Admin: 08/22/19 08:41 Dose: 50 mls Documented by: Insulin Glargine (Lantus) 15 units SUB-Q QHS [facility] Last Admin: 08/21/19 23:04 Dose: 15 units Documented by: Insulin Human Lispro (Humalog) 0 unit SUB-Q ACHS [facility]; Protocol Last Admin: 08/22/19 08:17 Dose: Not Given Documented by: Isosorbide Dinitrate (Isordil Titradose) 40 mg PO BID [facility] Last Admin: 08/22/19 10:43 Dose: 40 mg Documented by: Ondansetron HCl (Zofran) 4 mg IV Q8H PRN PRN Reason: Nausea And Vomiting Objective Vital Signs - 12hr 08/22/19 08/22/19 08/22/19 05:17 10:43 10:44 Temperature 98.4 F Pulse Rate 68 69 76 Respiratory 18 Rate Blood Pressure 156/88 171/90 171/90 O2 Sat by Pulse 94 Oximetry Constitutional: no acute distress, alert Eyes: non-icteric ENT: oropharynx moist Neck: supple Effort: normal Ascultation: Bilateral: clear (anteriorly) Cardiovascular: regular rate and rhythm (no mrg) Gastrointestinal: normoactive bowel sounds, soft, non-distended Integumentary: normal Extremities: no cyanosis, no edema, pink and warm Neurologic: normal mental status, non-focal exam, pupils equal and round Psychiatric: mood appropriate, affect normal CBC and BMP: 08/22/19 06:02 08/22/19 06:02 ABG, PT/INR, D-dimer: PT/INR, D-dimer PT 14.8 Sec. (12.2-14.9) 08/22/19 06:02 INR 1.14 (0.87-1.13) H 08/22/19 06:02 Abnormal lab findings: Abnormal Labs 08/15/19 08/15/19 08/15/19 20:39 20:39 20:39 RBC 3.35 L Hgb 10.5 L Hct 30.7 L Seg Neuts % (Manual) 93.0 H Lymphocytes % (Manual) 4.0 L Monocytes % (Manual) Lymphocytes # (Manual) 0.3 L PT INR Heparin Anti-Xa Level Potassium Carbon Dioxide 20 L BUN 40 H Creatinine 3.7 H Glucose 257 H POC Glucose Total Creatine Kinase 3076 H CK-MB (CK-2) 11.9 H Troponin T 0.129 H* 0.129 H* NT-Pro-B Natriuret Pep 91989 H Urine Creatinine 08/16/19 08/16/19 08/16/19 00:30 04:49 04:49 RBC Hgb 10.2 L Hct 30.0 L Seg Neuts % (Manual) Lymphocytes % (Manual) Monocytes % (Manual) Lymphocytes # (Manual) PT INR Heparin Anti-Xa Level Potassium Carbon Dioxide BUN Creatinine Glucose POC Glucose Total Creatine Kinase 2784 H 2928 H CK-MB (CK-2) 18.0 H 20.5 H Troponin T 0.231 H* D 0.382 H* D NT-Pro-B Natriuret Pep Urine Creatinine 08/16/19 08/16/19 08/16/19 04:49 12:51 12:51 RBC Hgb Hct Seg Neuts % (Manual) Lymphocytes % (Manual) Monocytes % (Manual) Lymphocytes # (Manual) PT 15.2 H INR 1.18 H Heparin Anti-Xa Level < 0.10 L Potassium Carbon Dioxide BUN Creatinine Glucose POC Glucose Total Creatine Kinase CK-MB (CK-2) Troponin T 0.488 H* D NT-Pro-B Natriuret Pep Urine Creatinine 08/16/19 08/16/19 08/16/19 15:30 18:02 21:37 RBC Hgb Hct Seg Neuts % (Manual) Lymphocytes % (Manual) Monocytes % (Manual) Lymphocytes # (Manual) PT INR Heparin Anti-Xa Level Potassium Carbon Dioxide BUN Creatinine Glucose POC Glucose 242 H 237 H 189 H Total Creatine Kinase CK-MB (CK-2) Troponin T NT-Pro-B Natriuret Pep Urine Creatinine 08/16/19 08/16/19 08/17/19 21:40 21:40 05:45 RBC 3.09 L Hgb 9.5 L Hct 28.2 L Seg Neuts % (Manual) Lymphocytes % (Manual) Monocytes % (Manual) Lymphocytes # (Manual) PT INR Heparin Anti-Xa Level < 0.10 L Potassium Carbon Dioxide BUN Creatinine Glucose POC Glucose Total Creatine Kinase CK-MB (CK-2) Troponin T 0.451 H* NT-Pro-B Natriuret Pep Urine Creatinine 08/17/19 08/17/19 08/17/19 05:45 08:08 11:56 RBC Hgb Hct Seg Neuts % (Manual) Lymphocytes % (Manual) Monocytes % (Manual) Lymphocytes # (Manual) PT INR Heparin Anti-Xa Level Potassium Carbon Dioxide 19 L BUN 42 H Creatinine 4.0 H Glucose 151 H POC Glucose 145 H 180 H Total Creatine Kinase CK-MB (CK-2) Troponin T NT-Pro-B Natriuret Pep Urine Creatinine 08/17/19 08/17/19 08/18/19 15:36 18:18 00:17 RBC Hgb Hct Seg Neuts % (Manual) Lymphocytes % (Manual) Monocytes % (Manual) Lymphocytes # (Manual) PT INR Heparin Anti-Xa Level Potassium Carbon Dioxide BUN Creatinine Glucose POC Glucose 168 H 212 H Total Creatine Kinase CK-MB (CK-2) Troponin T NT-Pro-B Natriuret Pep Urine Creatinine 77.8 H 08/18/19 08/18/19 08/18/19 04:12 04:12 04:12 RBC 3.13 L Hgb 9.6 L Hct 28.3 L Seg Neuts % (Manual) Lymphocytes % (Manual) Monocytes % (Manual) Lymphocytes # (Manual) PT INR Heparin Anti-Xa Level 0.28 L Potassium Carbon Dioxide 18 L BUN 49 H Creatinine 3.9 H Glucose 210 H POC Glucose Total Creatine Kinase CK-MB (CK-2) Troponin T NT-Pro-B Natriuret Pep Urine Creatinine 08/18/19 08/18/19 08/18/19 07:59 12:07 17:31 RBC Hgb Hct Seg Neuts % (Manual) Lymphocytes % (Manual) Monocytes % (Manual) Lymphocytes # (Manual) PT INR Heparin Anti-Xa Level Potassium Carbon Dioxide BUN Creatinine Glucose POC Glucose 228 H 200 H 200 H Total Creatine Kinase CK-MB (CK-2) Troponin T NT-Pro-B Natriuret Pep Urine Creatinine 08/18/19 08/19/19 08/19/19 20:55 03:49 03:49 RBC 3.03 L Hgb 9.3 L Hct 27.4 L Seg Neuts % (Manual) Lymphocytes % (Manual) Monocytes % (Manual) Lymphocytes # (Manual) PT INR Heparin Anti-Xa Level Potassium Carbon Dioxide BUN 55 H Creatinine 4.2 H Glucose 169 H POC Glucose 153 H Total Creatine Kinase 432 H CK-MB (CK-2) Troponin T NT-Pro-B Natriuret Pep Urine Creatinine 08/19/19 08/19/19 08/19/19 08:03 11:40 22:17 RBC Hgb Hct Seg Neuts % (Manual) Lymphocytes % (Manual) Monocytes % (Manual) Lymphocytes # (Manual) PT INR Heparin Anti-Xa Level Potassium Carbon Dioxide BUN Creatinine Glucose POC Glucose 185 H 245 H 209 H Total Creatine Kinase CK-MB (CK-2) Troponin T NT-Pro-B Natriuret Pep Urine Creatinine 08/20/19 08/20/19 08/20/19 07:35 15:40 21:49 RBC Hgb Hct Seg Neuts % (Manual) Lymphocytes % (Manual) Monocytes % (Manual) Lymphocytes # (Manual) PT INR Heparin Anti-Xa Level Potassium Carbon Dioxide BUN Creatinine Glucose POC Glucose 134 H 175 H 220 H Total Creatine Kinase CK-MB (CK-2) Troponin T NT-Pro-B Natriuret Pep Urine Creatinine 08/21/19 08/21/19 08/21/19 08:04 12:17 17:12 RBC Hgb Hct Seg Neuts % (Manual) Lymphocytes % (Manual) Monocytes % (Manual) Lymphocytes # (Manual) PT INR Heparin Anti-Xa Level Potassium Carbon Dioxide BUN Creatinine Glucose POC Glucose 136 H 176 H 278 H Total Creatine Kinase CK-MB (CK-2) Troponin T NT-Pro-B Natriuret Pep Urine Creatinine 08/21/19 08/22/19 08/22/19 21:36 05:29 06:02 RBC 3.20 L Hgb 9.8 L Hct 28.9 L Seg Neuts % (Manual) Lymphocytes % (Manual) Monocytes % (Manual) 12.0 H Lymphocytes # (Manual) PT INR Heparin Anti-Xa Level Potassium Carbon Dioxide BUN Creatinine Glucose POC Glucose 162 H 119 H Total Creatine Kinase CK-MB (CK-2) Troponin T NT-Pro-B Natriuret Pep Urine Creatinine 08/22/19 08/22/19 06:02 06:02 RBC Hgb Hct Seg Neuts % (Manual) Lymphocytes % (Manual) Monocytes % (Manual) Lymphocytes # (Manual) PT INR 1.14 H Heparin Anti-Xa Level Potassium 3.2 L Carbon Dioxide BUN 42 H Creatinine 4.0 H Glucose 105 H POC Glucose Total Creatine Kinase CK-MB (CK-2) Troponin T NT-Pro-B Natriuret Pep Urine Creatinine Chest x-ray: report reviewed, image reviewed
--- NOTE | 2019-08-22 12:09 | Progress Note ---
Assessment and Plan Acute respiratory failure / pulmonary edema Improved. Acute on chronic HFrEF Nearing euvolemia. CXR today with near resolution of HF. Cont volume optimization per nephrology team. Cont lopressor, consider addition of ACEI/ARB if/when okay per nephrology. ICMP An echocardiogram done at [facility] in 2016 found an EF of 30 percent, mild LVH, severely dilated LV, mild MR and a small pericardial effusion. Echo done 08/16/2019 showed EF 15-20%, mild to mod LVH, LV severely dilated, restrictive diastolic filling, LA severely dilated, RA mildl dilated, pacemaker wire in RV and RA, mild MR, mild TR, RVSP 37mmHg, smal pericardial effusion. Cont ASA, statin, lopressor, Isordil, hydralazine, consider addition of ACEI/ARB if/when okay per nephrology. S/p LHC this AM - EF 20-30%, patent mid LAD stent with severe diffuse disease of prox diagonal branches, circ artery with severe calcific lesions, RCA severely diffusely diseased. AICD in situ Followed by [facility]. CAD s/p PCI to LAD in 2015 Cont ASA, statin, lopressor, Isordil, consider addition of ACEI/ARB if/when okay per nephrology. S/p LHC this AM - EF 20-30%, patent mid LAD stent with severe diffuse disease of prox diagonal branches, circ artery with severe calcific lesions, RCA severely diffusely diseased. NSTEMI Suspect type II. ECG with NSR and LBBB, no acute ischemic changes. Pt denies any occurrence of chest pain. However, given h/o CAD, reduced LVEF, LBBB and clinical presentation, coronary angiography recommended for definitive diagnosis. Indications, potential risks and benefits of LHC reviewed with pt and he is agreeable to proceed with LHC in AM. NPO after MN. For HD following LHC. D/w nephrology. LBBB HTN Stable. DM ESRD Initiated on HD this admission. Nephrology following. S/p LHC this AM - EF 20-30%, patent mid LAD stent with severe diffuse disease of prox diagonal branches, circ artery with severe calcific lesions, RCA severely diffusely diseased. Pt to be tx to [facility] for revascularization. The patient has been seen in conjunction with Dr. Lindsey who agrees with the assessment and plan of care. Subjective Date of service: 08/22/19 Principal diagnosis: Acute respiratory failure; HF Interval history: pt resting in bed, no current complaints, for [facility] today. in SR on tele, no acute events overnight. Objective Last Vital Signs Temp 98.4 F 08/22/19 05:17 Pulse 76 08/22/19 10:44 Resp 18 08/22/19 05:17 BP 171/90 08/22/19 10:44 Pulse Ox 94 08/22/19 05:17 - Physical Examination General: No Apparent Distress HEENT: Positive: PERRL Neck: Positive: neck supple, trachea midline Cardiac: Positive: Reg Rate and Rhythm, S1/S2 Lungs: Positive: Decreased Breath Sounds Neuro: Positive: Grossly Intact Abdomen: Positive: Unremarkable /Rectal: Other (deferred) Skin: Positive: Clear Musculoskeletal: Normal Range of Motion Extremities: Present: normal - Labs and Meds Coagulation 08/22/19 Range/Units 06:02 PT 14.8 (12.2-14.9) Sec. INR 1.14 H (0.87-1.13) CBC 08/22/19 Range/Units 06:02 WBC 6.0 (4.5-11.0) K/mm3 RBC 3.20 L (3.65-5.03) M/mm3 Hgb 9.8 L (11.8-15.2) gm/dl Hct 28.9 L (35.5-45.6) % Plt Count 300 (140-440) K/mm3 Comprehensive Metabolic Panel 08/22/19 Range/Units 06:02 Sodium 139 (137-145) mmol/L Potassium 3.2 L (3.6-5.0) mmol/L Chloride 98.4 (98-107) mmol/L Carbon Dioxide 24 (22-30) mmol/L BUN 42 H (9-20) mg/dL Creatinine 4.0 H (0.8-1.5) mg/dL Glucose 105 H (75-100) mg/dL Calcium 8.9 (8.4-10.2) mg/dL - Imaging and Cardiology Echo: report reviewed (08/16/2019: EF 15-20%, mod LVH, LV severely dilated, LA severely dilated, small pericardial effusion, small pleural effusion) Cardiac cath: report reviewed (2016: 1. Euvolemic state with right atrial pressure 3-5, pulmonary capillary) - EKG Ventricular dysrhythmias: ventricular premature com
[2019-08-22] MEDS ORDERED: SODIUM CHLORIDE 0.9% 100 ML IV PRN (12:56)
--- NOTE | 2019-08-22 15:13 | Discharge Summary ---
Providers - Providers Date of Admission: 08/15/19 21:59 Date of discharge: 08/22/19 Attending physician: APOLONIA MENDOZA 08/16/19 06:00 Consult to Physician [CONS] Routine Comment: Office notified (Juliet) Dr. troncoso change control specialist 10:51 Consulting Provider: CODY MACIAS Physician Instructions: Reason For Exam: CHF EXACERBATION WITH ELEVATED TROPONIN LEVEL 08/16/19 09:56 Consult to Physician [CONS] Routine Comment: Consulting Provider: EDUARDO CAMARA Physician Instructions: Reason For Exam: ICU admission, respiratory failure on bipap 08/17/19 07:48 Consult to Physician [CONS] Routine Comment: Consulting Provider: GOPAL PERALTA Physician Instructions: Reason For Exam: ARF 08/19/19 09:54 Consult to Interventional Radiology [CONS] Routine Consulting Provider: СЕРГЕЙ SANTOS Reason For Exam: Tunnel hemodialysis catheter Place consult to:: Dr. Santos Notified:: Rosaura FONSECA Phone number called:: Was contact made?: Yes If yes, spoke with:: [facility] service Time called:: 10:38 08/22/19 12:10 Consult to Cardiac Rehabilitation [CONS] Routine Reason For Exam: Cardiac Rehab Evaluation Primary care physician: ALYSON GRIFFITH Hospitalization Condition: Critical Pertinent studies: [facility],ECHO Procedures: [facility] Hospital course: Patient is a 64 yo man with a history of hypertension and CHF (first visit in our EMR) who presented to [facility] ED with severe SOB requring Bipap, pulse ox only 83%. CAD s/p PCI to LAD in 2016 S/p [facility] this AM - EF 20-30%, patent mid LAD stent with severe diffuse disease of prox diagonal branches, circ artery with severe calcific lesions, RCA severely diffusely diseased. Pt to be tx to [facility] for revascularization. Cont ASA, statin, lopressor, Isordil, consider addition of ACEI/ARB if/when okay per nephrology. S/p [facility] this AM - EF 20-30%, patent mid LAD stent with severe diffuse disease of prox diagonal branches, circ artery with severe calcific lesions, RCA severely diffusely diseased. -EVANS /CKDvasomotor nephropathy: treat the CHF, consulted Nephrology, input noted Likley vasomotor EVANS superimposed on CKD stage 4. Renal US and Urine studies ordered. Baseline creatinine 3.5 last month. Renal function continue to decline. Monitor renal function. Renal prognosis is guarded to poor. Avoid nephrotoxic agents. Meds dosage based on GFR. Patient and family gave consent for hemodialysis. Vas-Cath placed on 08/20/19 Acute respiratory failure / pulmonary edema Improved. Acute on chronic HFrEF Nearing euvolemia. CXR today with near resolution of HF. Cont volume optimization per nephrology team. Cont lopressor, consider addition of ACEI/ARB if/when okay per nephrology. ICMP An echocardiogram done at [place] in 2016 found an EF of 30 percent, mild LVH, severely dilated LV, mild MR and a small pericardial effusion. Echo done 08/16/2019 showed EF 15-20%, mild to mod LVH, LV severely dilated, restrictive diastolic filling, LA severely dilated, RA mildl dilated, pacemaker wire in RV and RA, mild MR, mild TR, RVSP 37mmHg, smal pericardial effusion. Cont ASA, statin, lopressor, Isordil, hydralazine, consider addition of ACEI/ARB if/when okay per nephrology. S/p LHC this AM - EF 20-30%, patent mid LAD stent with severe diffuse disease of prox diagonal branches, circ artery with severe calcific lesions, RCA severely diffusely diseased. AICD in situ Followed by [facility]. NSTEMI Suspect type II. ECG with NSR and LBBB, no acute ischemic changes. Pt denies any occurrence of chest pain. However, given h/o CAD, reduced LVEF, LBBB and clinical presentation, coronary angiography recommended for definitive diagnosis. Indications, potential risks and benefits of LHC reviewed with pt and he is agreeable to proceed with LHC in AM. NPO after MN. For HD following LHC. D/w nephrology. LBBB HTN Stable. DM ESRD Initiated on HD this admission. Nephrology following. Disposition: [id number]/TX-[id number] ANOTHER TYPE [facility] Core Measure Documentation - Palliative Care Palliative Care/ Comfort Measures: Not Applicable - Core Measures Any of the following diagnoses?: heart failure - Heart Failure Discharge Requirements LEELA/ARB for LVSD if EF <40%: Yes Beta joshua at discharge: Yes Exam - Constitutional Vitals: Temp Pulse Resp BP Pulse Ox 98.4 F 76 18 171/90 94 08/22/19 05:17 08/22/19 10:44 08/22/19 05:17 08/22/19 10:44 08/22/19 05:17 Plan Follow up with: PRIMARY CARE, [Referring] - 3-5 Days
--- NOTE | 2019-08-22 23:38 | Progress Note ---
Assessment and Plan 1. ESRD: CKD has progressed to ESRD. Renal US negative for hydro. Baseline creatinine 3.5 last month. Renal prognosis is guarded to poor. Avoid nephrotoxic agents. Meds dosage based on GFR. Patient was started on hemodialysis due to worsening renal function, volume overload and uncontrolled HTN. Hemodialysis: 08/19, 08/20. 2. FEN: Volume overload, mostly improved. Continue Lasix. Metabolic acidosis, improved. Monitor lytes. 3. Uncontrolled HTN: BP is better. 4. Acute hypoxic respiratory failure: Improving. 5. NSTEMI type 2: S/p Cardiac cath. Followed by [facility]. 6. Acute on chronic HFpEF. 7. Normochromic anemia: POA. 8. Elevated CK: Improving. 9. DM type 2: Monitor. Await outpatient HD chair. Examination: General appearance: well-developed, well-nourished, appears stated age, no distress HEENT: ATNC, RIVER, hearing intact, vision intact Neck: neck supple, trachea midline Respiratory: ctab Heart: regular, S1S2, no murmurs Gastrointestinal: Soft, normoactive bowel sounds, not tender, not distended Integumentary: no rash, warm and dry Neurologic: no focal deficit, no asterixis, alert and oriented x3 Ext: no edema Psychiatric: cooperative Hemodialysis access: R IJ tunnel catheter Subjective Date of service: 08/22/19 Principal diagnosis: Acute respiratory failure; HF Interval history: Patient was seen and examined at the bedside. Doing better. Objective - Lab 08/22/19 06:02 08/22/19 06:02 Most recent lab results Calcium 8.9 mg/dL (8.4-10.2) 08/22/19 06:02 Phosphorus 4.50 mg/dL (2.5-4.5) 08/18/19 04:12 Magnesium 1.90 mg/dL (1.7-2.3) 08/18/19 04:12 Urine Creatinine 77.8 mg/dL (0.1-20.0) H 08/17/19 18:18 Urine Sodium 66 mmol/L 08/17/19 18:18 Medications & Allergies - Medications Allergies/Adverse Reactions: Allergies No Known Allergies Allergy (Verified 08/15/19 18:58) Home Medications: Home Medications Medication Instructions Recorded Confirmed Last Taken Type Amlodipine Besylate [Norvasc] 10 mg PO QDAY 08/15/19 08/15/19 Unknown History Aspirin EC [Halfprin EC] 81 mg PO QDAY 08/15/19 08/15/19 Unknown History Atorvastatin Calcium [Lipitor] 80 mg PO QHS 08/15/19 08/15/19 Unknown History Clopidogrel [Plavix] 75 mg PO QDAY 08/15/19 08/15/19 Unknown History Furosemide [Lasix TAB] 80 mg PO QDAY 08/15/19 08/15/19 Unknown History Insulin Detemir [Levemir Flextouch] 15 unit SQ QHS 08/15/19 08/15/19 Unknown History Isosorbide Dinitrate [Isordil] 40 mg PO TID 08/15/19 08/15/19 Unknown History Potassium Chloride [K-Dur] 20 meq PO QDAY 08/15/19 08/15/19 Unknown History carvediloL [Coreg] 25 mg PO BID 08/15/19 08/15/19 Unknown History cloNIDine-TTS PATCH [Catapres-Tts 1 patch TD Q7D 08/15/19 08/15/19 Unknown History 0.1MG Patch] hydrALAZINE [Apresoline TAB] 100 mg PO TID 08/15/19 08/15/19 Unknown History
== END 2019-08-22 15:42 | disposition short-term general hospital (02) | DRG 280 ==
LOC: ED 18:45 → CC1 21:59 → 4A 08-18 11:08
PROVIDERS: ADMIT Internal Medicine; ATTEND Internal Medicine
PROC: 5A09357 Assistance with Respiratory Ventilation, Less than 24 Consecutive Hours, Continuous Positive Airway Pressure (ICD-10-PCS; 2019-08-15)
PROC: 5A09357 Assistance with Respiratory Ventilation, Less than 24 Consecutive Hours, Continuous Positive Airway Pressure (ICD-10-PCS; 2019-08-17)
PROC: 5A1D70Z Performance of Urinary Filtration, Intermittent, Less than 6 Hours Per Day (ICD-10-PCS; principal; 2019-08-19)
PROC: 02HV33Z Insertion of Infusion Device into Superior Vena Cava, Percutaneous Approach (ICD-10-PCS; 2019-08-19)
PROC: B548ZZA Ultrasonography of Superior Vena Cava, Guidance (ICD-10-PCS; 2019-08-19)
PROC: 5A1D70Z Performance of Urinary Filtration, Intermittent, Less than 6 Hours Per Day (ICD-10-PCS; 2019-08-20)
PROC: 4A023N7 Measurement of Cardiac Sampling and Pressure, Left Heart, Percutaneous Approach (ICD-10-PCS; 2019-08-22)
PROC: B2111ZZ Fluoroscopy of Multiple Coronary Arteries using Low Osmolar Contrast (ICD-10-PCS; 2019-08-22)
PROC: B2151ZZ Fluoroscopy of Left Heart using Low Osmolar Contrast (ICD-10-PCS; 2019-08-22)
DX: I13.2 Hypertensive heart and chronic kidney disease with heart failure and with stage 5 chronic kidney disease, or end stage renal disease (principal); I21.A1 Myocardial infarction type 2; I50.23 Acute on chronic systolic (congestive) heart failure; N18.6 End stage renal disease; N17.0 Acute kidney failure with tubular necrosis; J96.01 Acute respiratory failure with hypoxia; J81.1 Chronic pulmonary edema; E87.2 Acidosis; R65.10 Systemic inflammatory response syndrome (SIRS) of non-infectious origin without acute organ dysfunction; I16.9 Hypertensive crisis, unspecified; E11.22 Type 2 diabetes mellitus with diabetic chronic kidney disease; I44.7 Left bundle-branch block, unspecified; I25.10 Atherosclerotic heart disease of native coronary artery without angina pectoris; R74.8 Abnormal levels of other serum enzymes; E87.70 Fluid overload, unspecified; I16.0 Hypertensive urgency; I25.5 Ischemic cardiomyopathy; D64.9 Anemia, unspecified; E78.5 Hyperlipidemia, unspecified; Z99.2 Dependence on renal dialysis; Z79.4 Long term (current) use of insulin; Z95.810 Presence of automatic (implantable) cardiac defibrillator; Z79.82 Long term (current) use of aspirin; Z79.899 Other long term (current) drug therapy; Z87.891 Personal history of nicotine dependence
CPT/HCPCS: 36415; 36558; 71045; 76770; 76937; 77001; 80048; 80053; 80061; 80074; 81001; 82140; 82550; 82553; 82570; 82962; 83735; 83880; 84100; 84300; 84484; 85007; 85014; 85018; 85025; 85027; 85049; 85520; 85610; 85730; 89050; 93005; 93010; 93306; 93458; 94640; 94660; 94760; 96374; 96375; 96376; G0378; A9270-GY; C1750; J0885; J1644; J1815; J1940; J2250; J3010; J7030; J7040; J7050; Q9967